=== PATIENT | male | born 1935 | race Caucasian/White ===

== ENCOUNTER → 2016-10-29 | Outpatient (CLI) | payer OTHER ==
[~2016-10-29] MED LIST: ASPI325T39 PO; ATEN-175 PO; CIPR-255 PO; FLUO20CA35 PO; HYDR-4715 PO; HYDR25TA4 PO; METR500T PO; MULT-506 PO; MULTCAP36 PO; OMEG10007 PO; SIMV20TA2 PO
[2016-10-29 12:26] LABS: MEAN CELL VOLUME 90.9 fL (80-100); MEAN CORPUSCULAR HEMOGLOBIN 31.8 pg (25-34); MEAN PLATELET VOLUME 12.4 fL (7.4-10.4); PLATELET COUNT 158 K/uL (130-400); RED BLOOD COUNT 5.28 M/uL (4.7-6.1)
[2016-10-29 12:31] LABS: URINE APPEARANCE CLEAR (CLEAR); URINE BILIRUBIN NEG (NEG); URINE COLOR YELLOW; URINE EPITHELIAL CELL AUTO 0-5 /lpf (0-5); URINE NITRITE NEG (NEG); URINE SPECIFIC GRAVITY 1.012 (1.000-1.030); UROBILINOGEN NEG (NEG)
[2016-10-29 12:34] LABS: BLOOD UREA NITROGEN 16 mg/dl (7-18); BUN/CREATININE RATIO 11.7 (10-20); CALCIUM 8.9 mg/dl (8.5-10.1); CARBON DIOXIDE 29 mmol/L (21-32); CHLORIDE 104 mmol/L (98-107); GLUCOSE 116 mg/dl (70-99); PHOSPHORUS 2.1 mg/dl (2.5-4.9); POTASSIUM 3.8 mmol/L (3.5-5.1); SODIUM 142 mmol/L (136-145)
[2016-10-29 12:46] LABS: MANUAL MICROSCOPIC REQUIRED? NO; REVIEW REQ? NO
[2016-10-29 12:54] LABS: URINE PROTIEN/CREAT RATIO 0.1 (0-0.2); URINE TOTAL PROTEIN 12.2 mg/dl (0-11.9)
== END | disposition home or self-care (01) ==
LOC: C.LABPVFM 10:49
PROVIDERS: ATTEND Internal Medicine Nephrology
DX: I10 Essential (primary) hypertension (principal); N25.81 Secondary hyperparathyroidism of renal origin; N18.3 Chronic kidney disease, stage 3 (moderate); E55.9 Vitamin D deficiency, unspecified

== ENCOUNTER → 2017-02-10 | Outpatient (CLI) | payer OTHER ==
--- NOTE | 2017-02-10 13:55 | DIAGNOSTIC IMAGING REPORT ---
CT OF THE CHEST WITHOUT IV CONTRAST CLINICAL HISTORY: Multiple pulmonary nodules. COMPARISON STUDY: Chest CT December 08, [address] of the abdomen and pelvis February 09, 2014. CT DOSE: 462.47 mGy.cm TECHNIQUE: Axial images of the chest were obtained without IV contrast. Images were reviewed in the axial, sagittal, and coronal planes. IV contrast was not administered for this examination. FINDINGS: No enlarged axillary, mediastinal or hilar lymph nodes are present. The heart is mildly enlarged. There is no pericardial effusion. Central airways are patent. Scattered pulmonary nodules are unchanged and CT of December 08, [address] of December 12, 2015 and include a 5 mm right lower lobe nodule shown image 48 of 62 and a 5 mm left lower lobe nodule shown image 44. There are no new nodules. The nodules are benign given stability. Central airways are patent. Bony thorax is unremarkable. There is fatty infiltration of the liver. IMPRESSION: No significant change in several pulmonary nodules since CT of December 12, 2013. Stability over this time period is consistent with a benign etiology. Electronically signed by: Darrell Lucas M.D. 02/10/2017 1:53 PM Dictated Date/Time: 02/10/2017 1:43 PM
== END | disposition home or self-care (01) ==
LOC: C.CTS 12:56
PROVIDERS: ATTEND Family Medicine
DX: R91.8 Other nonspecific abnormal finding of lung field (principal)

== ENCOUNTER → 2017-05-05 | Outpatient (CLI) | payer OTHER ==
[2017-05-05 12:53] LABS: HEMATOCRIT 47.8 % (42-52); MEAN CELL VOLUME 91.7 fL (80-100); MEAN CORPUSCULAR HEMOGLOBIN 30.7 pg (25-34); MEAN CORPUSCULAR HGB CONC 33.5 g/dl (32-36); RED BLOOD COUNT 5.21 M/uL (4.7-6.1); WHITE BLOOD COUNT 4.76 K/uL (4.8-10.8)
[2017-05-05 12:56] LABS: URINE APPEARANCE CLEAR (CLEAR); URINE BILIRUBIN NEG (NEG); URINE COLOR YELLOW; URINE EPITHELIAL CELL AUTO 0-5 /lpf (0-5); URINE NITRITE NEG (NEG); URINE SPECIFIC GRAVITY 1.019 (1.000-1.030); UROBILINOGEN NEG (NEG)
[2017-05-05 12:57] LABS: MANUAL MICROSCOPIC REQUIRED? NO; REVIEW REQ? NO
[2017-05-05 13:10] LABS: BLOOD UREA NITROGEN 20 mg/dl (7-18); BUN/CREATININE RATIO 13.3 (10-20); CALCIUM 8.7 mg/dl (8.5-10.1); CARBON DIOXIDE 29 mmol/L (21-32); CHLORIDE 108 mmol/L (98-107); GLUCOSE 118 mg/dl (70-99); POTASSIUM 3.8 mmol/L (3.5-5.1); SODIUM 141 mmol/L (136-145)
[2017-05-05 13:11] LABS: PHOSPHORUS 1.9 mg/dl (2.5-4.9)
[2017-05-05 13:13] LABS: URINE PROTIEN/CREAT RATIO 0.1 (0-0.2); URINE TOTAL PROTEIN 13.2 mg/dl (0-11.9)
[2017-05-05 13:36] LABS: MEAN PLATELET VOLUME 12.8 fL (7.4-10.4); PLATELET COUNT 128 K/uL (130-400)
== END | disposition home or self-care (01) ==
LOC: C.LABPVFM 07:58
PROVIDERS: ATTEND Internal Medicine Nephrology
DX: I10 Essential (primary) hypertension (principal); N25.81 Secondary hyperparathyroidism of renal origin; N18.3 Chronic kidney disease, stage 3 (moderate); E55.9 Vitamin D deficiency, unspecified

== ENCOUNTER → 2017-10-23 | Outpatient (CLI) | payer OTHER ==
[2017-10-23 12:53] LABS: HEMATOCRIT 50.1 % (42-52); HEMOGLOBIN 17.2 g/dL (14.0-18.0); MEAN CELL VOLUME 92.4 fL (80-100); MEAN CORPUSCULAR HEMOGLOBIN 31.7 pg (25-34); MEAN CORPUSCULAR HGB CONC 34.3 g/dl (32-36); MEAN PLATELET VOLUME 12.4 fL (7.4-10.4); PLATELET COUNT 158 K/uL (130-400); RED CELL DISTRIBUTION WIDTH SD 46.9 fL (36.4-46.3); WHITE BLOOD COUNT 7.22 K/uL (4.8-10.8)
[2017-10-23 13:37] LABS: ALBUMIN 3.5 gm/dl (3.4-5.0); BLOOD UREA NITROGEN 19 mg/dl (7-18); CALCIUM 8.6 mg/dl (8.5-10.1); CARBON DIOXIDE 28 mmol/L (21-32); CREATININE 1.49 mg/dl (0.60-1.40); GLUCOSE 100 mg/dl (70-99); PHOSPHORUS 2.7 mg/dl (2.5-4.9); POTASSIUM 3.6 mmol/L (3.5-5.1); SODIUM 138 mmol/L (136-145)
== END | disposition home or self-care (01) ==
LOC: C.LABPVFM 07:42
PROVIDERS: ATTEND Family Medicine
DX: E78.5 Hyperlipidemia, unspecified (principal); I12.9 Hypertensive chronic kidney disease with stage 1 through stage 4 chronic kidney disease, or unspecified chronic kidney disease; N18.3 Chronic kidney disease, stage 3 (moderate); N25.81 Secondary hyperparathyroidism of renal origin; E55.9 Vitamin D deficiency, unspecified

== ENCOUNTER → 2018-03-04 | Outpatient (CLI) | payer OTHER ==
[2018-03-04 13:06] LABS: HEMATOCRIT 47.4 % (42-52); HEMOGLOBIN 16.5 g/dL (14.0-18.0); MEAN CELL VOLUME 91.3 fL (80-100); MEAN CORPUSCULAR HEMOGLOBIN 31.8 pg (25-34); MEAN CORPUSCULAR HGB CONC 34.8 g/dl (32-36); MEAN PLATELET VOLUME 12.6 fL (7.4-10.4); PLATELET COUNT 147 K/uL (130-400); RED CELL DISTRIBUTION WIDTH CV 14.4 % (11.5-14.5); RED CELL DISTRIBUTION WIDTH SD 48.6 fL (36.4-46.3); WHITE BLOOD COUNT 5.22 K/uL (4.8-10.8)
[2018-03-04 13:19] LABS: ALBUMIN 3.4 gm/dl (3.4-5.0); ALT/SGPT 27 U/L (12-78); AST/SGOT 25 U/L (15-37); BLOOD UREA NITROGEN 17 mg/dl (7-18); CALCIUM 8.9 mg/dl (8.5-10.1); CARBON DIOXIDE 26 mmol/L (21-32); CREATININE 1.33 mg/dl (0.60-1.40); GLUCOSE 103 mg/dl (70-99); POTASSIUM 3.9 mmol/L (3.5-5.1); SODIUM 139 mmol/L (136-145)
[2018-03-04 13:21] LABS: ALKALINE PHOSPHATASE 86 U/L (45-117); TOTAL PROTEIN 6.8 gm/dl (6.4-8.2)
== END | disposition home or self-care (01) ==
LOC: C.LABPVFM 08:21
PROVIDERS: ATTEND Family Medicine
DX: E55.9 Vitamin D deficiency, unspecified (principal)

== ENCOUNTER 2019-12-31 08:37 | Inpatient (IN) ==
--- NOTE | 2019-12-31 09:07 | Emergency Department Note ---
ED Provider Note NAME: PHILLIP CROOK AGE: 84 SEX: M ARRIVES VIA: Ambulance INFORMANT: Patient, ED PROVIDER(S): Ryley Valerio DO CHIEF COMPLAINT: Left shoulder pain and generalized weakness IMPRESSION: Cellulitis of the left wrist and bilateral great toe areas PLAN: Disposition: Observation Condition: fair Outpatient prescription management: Referral: PCP MEDICAL DECISION MAKING: This is a 84-year-old male who presents to the ED with a chief complaint of left shoulder pain that is worse with movement. The patient states that he was seen here last Friday for the same. He also saw his PCP. They felt that it was musculoskeletal. The patient was given Toradol 15 mg IM by EMS in route. The patient, according to the , has had decreased p.o. intake over the last day or 2. The patient on my exam has some erythema to the left wrist on the palmar side. There is also some erythema to the bilateral toes. The states that this just started a couple of days ago. The patient has no vomiting. Denies any chest pains or shortness of breath or abdominal pains. No headaches. No recent trauma. The patient's blood test revealed a leukocytosis. His kidney function is abnormal. His kidney function suggest dehydration. He was treated with a liter of normal saline IV and a gram of Rocephin. His chest x-ray did suggest some mild fluid overload but clinically he is not in pulmonary edema. He will be seen for observation by Herlinda Alexandre hospitalist. Triage Nursing notes reviewed and agree them. [Additional history obtained from [Prior medical records reviewed] [] Vital Signs: reviewed and remarkable for [no significant abnormalities] Differential diagnosis: Infection, dehydration, metabolic abnormality, hypo/hyperglycemia, electrolyte disturbance, anemia, hypoxia, cardiac sources, intracerebral event, toxicologic, neurologic, as well as other pathologies. ER treatment provided: Rocephin 1 g IV, normal saline 1 L Diagnostics interpreted by me: ECG: Per my interpretation there is a normal sinus rhythm at a rate of 60 with out acute injury. No ST elevations. No PVCs. Normal QTC. Cardiac Monitoring: Reveals a normal sinus rhythm at a rate of 60. Laboratory studies: [See below] [] Imaging studies: [See below] [] Consultation(s): I spoke with the hospitalist, who will see the patient for admission/observation and further evaluation and consultation. HPI: This is a 84-year-old male who presents to the ED with a chief complaint of left shoulder pain that is worse with movement. The patient states that he was seen here last Friday for the same. He also saw his PCP. They felt that it was musculoskeletal. The patient was given Toradol 15 mg IM by EMS in route. The patient, according to the , has had decreased p.o. intake over the last day or 2. The states that this just started a couple of days ago. The patient has no vomiting. Denies any chest pains or shortness of breath or abdominal pains. No headaches. No recent trauma. ROS: See above HPI for pertinent positives & negatives. A total of [10] systems reviewed and were otherwise negative. PAST MEDICAL HISTORY:[See Below] PAST SURGICAL HISTORY:[See Below] FAMILY HISTORY:[See Below] SOCIAL HISTORY:[See Below] HOME MEDICATIONS:[See Below] ALLERGIES:[See Below] VITALS:[See Below] PHYSICAL EXAMINATION: CONSTITUTIONAL/VITAL SIGNS: Reviewed / noted above. GENERAL: Non-toxic in appearance. INTEGUMENTARY: Warm, dry, and [place]. The patient does have some erythema to the left wrist area on the palmar side. There is also some erythema on the bilateral great toes. HEAD: Normocephalic. EYES: without scleral icterus or trauma. ENT/OROPHARYNX: clear and moist. LYMPHADENOPATHY/NECK: Is supple without lymphadenopathy or meningismus. RESPIRATORY: Lungs clear and equal. CARDIOVASCULAR: Regular rate and rhythm. GI/ABDOMEN: Soft and nontender. No organomegaly or pulsatile mass. No rebound or guarding. Normal bowel sounds. EXTREMITIES: Warm and well perfused. Patient has some mild discomfort with movement of the left shoulder as well as palpation of the left shoulder. BACK: No CVA tenderness. NEUROLOGICAL: Intact without focal deficits. PSYCHIATRIC: normal affect. MUSCULOSKELETAL: Normally developed with good muscle tone. TRIAGE NURSING DOCUMENTATION REVIEWED. ED COURSE: The patient was treated with IV Rocephin. He was told the results of the test. He will be seen by the hospitalist for further evaluation and care. Procedures: [none] Impression & Plan Cellulitis, Acute kidney injury, Acute dehydration, Weakness Past Med/Surg History Medical History Chronic kidney disease, stage III (moderate) (Acute) Depression (Chronic) HTN (hypertension), benign (Chronic) Hyperlipidemia (Chronic) Vitamin D deficiency Surgical History No history of previous surgery Family History Denies family history of Ovarian cancer Prostate cancer Myocardial infarction Breast cancer Colorectal cancer Social History Preferred Language: Nepali Visual Impairment: No Limitations Hearing Ability: Normal marital status: Current Living Situation: Spouse current occupational status: retired Feels Safe at Home: Yes Smoking Status: Never smoker Second Hand Exposure: No ; Hx Alcohol Use: No Hx Substance Use: No caffeine: Yes Dental Care, Regularly: No Physical Activity Frequency: Does not Exercise Seatbelt Use: always Sunscreen Use: No Results & Data Vital Signs Vital Signs - 24 hr 12/31/19 08:44 12/31/19 09:29 12/31/19 10:35 Temperature 36.7 C Temperature Source Oral Pulse Rate 69 Pulse Rate [Finger] 64 Pulse Rhythm Regular Pulse Rhythm [Finger] Regular Pulse Strength Normal Pulse Strength [Finger] Normal Respiratory Rate 18 16 Respiratory Effort / Characteristics Non-Labored Spontaneous Non-Labored Spontaneous Respiratory Depth Normal Normal Respiratory Pattern Regular Regular Blood Pressure 150/79 H Blood Pressure [Right Arm] 134/73 Blood Pressure Mean 102 Blood Pressure Mean [Right Arm] 93 Blood Pressure Position Lying Blood Pressure Position [Right Arm] Lying Pulse Oximetry 95 95 98 Oxygen Delivery Method Room Air Room Air Room Air Sepsis Recent Fever Within 48 Hours No Sepsis New/Unexplained Change in Mental Status No Sepsis Action Taken by Nursing No Action Required Home Medications Current Medication List: was personally reviewed by me Laboratory Data Attestation: I reviewed the patient's lab results. Result diagrams: 12/31/19 09:27 12/31/19 09:27 Lab Results 12/31/19 12/31/19 Range/Units 09:27 09:27 WBC 23.28 H (4.8-10.8) K/uL RBC 4.63 L (4.7-6.1) M/uL Hgb 14.5 (14.0-18.0) g/dL Hct 42.3 (42-52) % MCV 91.4 (80-100) fL MCH 31.3 (25-34) pg MCHC 34.3 (32-36) g/dL RDW Std Deviation 52.5 H (36.4-46.3) fL RDW Coeff of Alize 15.6 H (11.5-14.5) % Plt Count 124 L (130-400) K/uL MPV 12.0 H (7.4-10.4) fL Immature Gran % (Auto) 3.9 % Neut % (Auto) 82.0 % Lymph % (Auto) 6.4 % [place] % (Auto) 7.6 % Eos % (Auto) 0.0 % Baso % (Auto) 0.1 % Immature Gran # (Auto) 0.91 H (0.00-0.02) K/uL Neut # (Auto) 19.10 H (1.4-6.5) K/uL Lymph # (Auto) 1.49 (1.2-3.4) K/uL [place] # (Auto) 1.76 H (0.11-0.59) K/uL Eos # (Auto) 0.00 (0-0.5) K/uL Baso # (Auto) 0.02 (0-0.2) K/uL Toxic Granulation 1+ Dohle Bodies 1+ Platelet Estimate Decreased L (Normal) Giant Platelets 1+ Echinocytes 1+ Sodium 138 (136-145) mmol/L Potassium 3.4 L (3.5-5.1) mmol/L Chloride 103 (98-107) mmol/L Carbon Dioxide 28 (21-32) mmol/L Anion Gap 7.0 (3-11) BUN 47 H (7-18) mg/dl Creatinine 1.61 H (0.6-1.4) mg/dl Est Cr Clr Drug Dosing 42.7 ml/min Est GFR ( Amer) 45.5 Est GFR (Non-Af Amer) 39.2 BUN/Creatinine Ratio 29.5 H (10-20) Glucose 123 H (70-99) mg/dl Calcium 8.2 L (8.5-10.1) mg/dl Total Creatine Kinase 65 (39-308) U/L Troponin I < 0.015 (0-0.045) ng/ml Administered Medications Discontinued Medications Sodium Chloride (Nss 1000ml) 1,000 mls @ 999 mls/hr IV .[id number] Stop: 12/31/19 10:15 Last Infusion: 12/31/19 10:29 Dose: 0 mls/hr Documented by: [id number] Admin: 12/31/19 09:28 Dose: 999 mls/hr Documented by: [id number] Ceftriaxone Sodium (Rocephin) 1,000 mg in 50 mls @ 100 mls/hr IV NOW STA Stop: 12/31/19 09:43 Last Infusion: 12/31/19 09:58 Dose: 0 mls/hr Documented by: [id number] Admin: 12/31/19 09:28 Dose: 100 mls/hr Documented by: [id number] Imaging Data Radiologist's Impression: SINGLE VIEW CHEST CLINICAL HISTORY: Generalized weakness. FINDINGS: An AP, portable, upright chest radiograph is correlated with chest CT dated 02/10/2017. The examination is degraded by portable technique and patient rotation. The heart is enlarged noting atherosclerotic calcification of the thoracic aorta. There is mild pulmonary vascular congestion. Atelectasis is noted at the lung bases. No airspace consolidation or large pleural effusion is identified. No pneumothorax is seen. The skeletal structures are osteopenic. There are healed left-sided rib fractures. IMPRESSION: Cardiomegaly with mild pulmonary vascular congestion. ECG Data Attestation: I personally reviewed and interpreted this ECG as follows: Indication: + chest pain Rate (beats per minute): 68 Rhythm: normal sinus ECG ST segments: + ST depression; no ST elevation ECG Findings: no PVCs Blood Pressure Blood Pressure Findings: Elevated blood pressure Blood Pressure Disposition: Referred to patients primary care provider Discharge Plan Visit Data Chief Complaint: Back Injury/Pain Stated Complaint: back pain ED Provider: Ryley Valeiro Discharge Problem: Cellulitis, Acute kidney injury, Acute dehydration, Weakness Patient Disposition: Being Evaluated by Hospitalist Condition: Fair Forms Stand Alone Forms: My [facility] [employer] Prescriptions Prescriptions: No Action hydrochlorothiazide 25 mg tablet 25 mg PO DAILY Qty: 90 RF: 3 omega-3 fatty acids [Fish Oil Concentrate] 1,000 mg capsule 1,000 mg PO BID Qty: 30 RF: 0 hydralazine 25 mg tablet 25 mg PO Q8H Qty: 90 RF: 2 multivitamin capsule 1 cap PO DAILY Qty: 30 RF: 0 PreserVision Lutein 226 mg-200 unit -5 mg-0.8 mg capsule 1 cap PO BID Qty: 30 RF: 0 cholecalciferol (vitamin D3) 1,000 unit capsule 1,000 units PO DAILY Qty: 30 RF: 0 atenolol 100 mg tablet 100 mg PO DAILY Qty: 30 RF: 2 prednisone 50 mg tablet 50 mg PO DAILY Qty: 5 RF: 0 cyclobenzaprine 10 mg tablet 10 mg PO TID PRN (Reason: muscle spasm) Qty: 14 RF: 0 tramadol 50 mg tablet See Rx Instructions PO Q6H PRN (Reason: pain) Qty: 16 RF: 0 escitalopram oxalate 10 mg tablet 10 mg PO DAILY Qty: 30 RF: 5 aspirin 81 mg tablet,delayed release (DR/EC) 81 mg PO HS RF: 0 simvastatin 20 mg tablet 20 mg PO HS RF: 0 Referrals Referrals: Kaitlin Rudd MD [Primary Care Provider] - Discharge Problem: Cellulitis Qualifiers: Site of cellulitis: extremity Site of cellulitis of extremity: upper extremity Laterality: left Qualified Code(s): L03.114 - Cellulitis of left upper limb
[2019-12-31] MEDS ORDERED: cefTRIAXone SODIUM 1,000 MG/50 ML BAG IV STA (09:14)
[2019-12-31] MEDS ORDERED: SODIUM CHLORIDE 0.9% 1000ML 1,000 ML IV SCH (09:15)
--- NOTE | 2019-12-31 09:40 | XRay Report ---
SINGLE VIEW CHEST CLINICAL HISTORY: Generalized weakness. FINDINGS: An AP, portable, upright chest radiograph is correlated with chest CT dated 02/10/2017. The examination is degraded by portable technique and patient rotation. The heart is enlarged noting athe rosclerotic calcification of the thoracic aorta. There is mild pulmonary vascular congestion. Atelect asis is noted at the lung bases. No airspace consolidation or large pleural effusion is identified. N o pneumothorax is seen. The skeletal structures are osteopenic. There are healed left-sided rib fract ures. IMPRESSION: Cardiomegaly with mild pulmonary vascular congestion. ACT 112: Negative or not required by law. Electronically signed by: Malcom Schaffer M.D. 12/31/2019 9:39 AM
[2019-12-31 09:56] LABS: BUN Creatinine Ratio 29.5 (10-20); Blood Urea Nitrogen 47 mg/dl (7-18); Calcium 8.2 mg/dl (8.5-10.1); Carbon Dioxide 28 mmol/L (21-32); Chloride 103 mmol/L (98-107); Creatinine Clr Calc Pharmacy 42.7 ml/min; Est GFR (African American) 45.5; Est GFR (Non-African American) 39.2; Glucose 123 mg/dl (70-99); Potassium 3.4 mmol/L (3.5-5.1); Sodium 138 mmol/L (136-145)
[2019-12-31 09:59] LABS: Creatine Kinase 65 U/L (39-308); Troponin I < 0.015 ng/ml (0-0.045)
[2019-12-31 10:15] LABS: Hematocrit (blood only) 42.3 % (42-52); Hemoglobin 14.5 g/dL (14.0-18.0); Mean Corpuscular Hemoglobin 31.3 pg (25-34); Mean Corpuscular Hgb Conc 34.3 g/dL (32-36); Mean Corpuscular Volume 91.4 fL (80-100); Platelet Count 124 K/uL (130-400); RDW Coefficient of Variation 15.6 % (11.5-14.5); RDW Standard Deviation 52.5 fL (36.4-46.3); Red Blood Count 4.63 M/uL (4.7-6.1); White Blood Count 23.28 K/uL (4.8-10.8)
[2019-12-31 10:16] LABS: Basophils # (auto) 0.02 K/uL (0-0.2); Basophils % (auto) 0.1 %; Dohle Bodies 1+; Echinocytes 1+; Giant Platelets 1+; Immature Granulocytes # (auto) 0.91 K/uL (0.00-0.02); Immature Granulocytes % (auto) 3.9 %; Lymphocytes # (auto) 1.49 K/uL (1.2-3.4); Lymphocytes % (auto) 6.4 %; Monocytes # (auto) 1.76 K/uL (0.11-0.59); Monocytes % (auto) 7.6 %; Platelet Estimate Decreased (Normal); Toxic Granulation 1+
--- NOTE | 2019-12-31 12:21 | History & Physical Report ---
Date of Service December 31, 2019 Assessment & Plan (1) Cellulitis: 84-year-old male was admitted on 31 December 2019 for multiple musculoskeletal symptoms along with cellulitis. Low back pain, left shoulder pain, left wrist cellulitis, bilateral toe erythema: Started with sharp low back pain, then limited left shoulder range of motion. Most recently difficulty moving bilateral legs and new areas of cellulitis on the left distal forearm as well as (emeka) both great toes. No known fevers or recent illness. No trauma, falls, saddle anesthesia, or other classic LBP red flags for an acute cord issue. Distally neurovascularly intact in all extremities. Current concern is for an infectious issue, perhaps tickborne vs viral vs bacterial source. Most worrisome would be a seeding bacteremia versus septic joint, though he never had a fever. Tachycardia would be limited by his atenolol. - Was seen in the ED on and by PCP on for initial symptoms. Has been on combination of prednisone 50 mg, cyclobenzaprine, and tramadol [id number]. - In the ED, afebrile, not tachycardic, mildly hypertensive, normal room SpO2. WBC 23. CK and troponin normal. EKG NSR 68. pCXR with mild pulmonary vascular congestion but no evidence of consolidation. - In the ED, treated with normal saline IVF and ceftriaxone 1 gm IV. - Will admit on vancomycin and ceftriaxone 2 grams IV q24h. Obtain x-rays of the left shoulder. Although already given antibiotics, will check blood and urine cultures. Check nasal MRSA. Also check for Lyme and a peripheral smear. On discussion with attending, will defer initial orthopedic evaluation until some of these tests are back. Continue with his outpatient prednisone 50 mg daily for now. Morphine IV prn for pain control. Thrombocytopenia: Admit platelet count 124. Baseline in mid 100s. No evidence of acute bleeding. Monitor for now. Acute on CKD stage III: Followed by Dr. Cruz of nephrology as outpatient. Baseline creatinine around 1.4. Admit creatinine 1.61. No reported dysuria, hematuria, urinary frequency or difficulty or incontinence. - At time of admit, UA is pending. Keep on some IVF and recheck BMP in AM. Hypokalemia: Admit potassium 3.4. Will replace and recheck in a.m. Ongoing medical issues: - HTN, HLD: Usually is on home aspirin, atenolol, hydralazine, hydrochlorothiazide, simvastatin. --- Hold his home hydralazine and HCTZ due to higher Cr. - Depression: Continue home escitalopram. - Vitamin D deficiency: Continue home vitamin D3. - Diverticulosis: Seen on recent CT a/p. - Hepatic steatosis: Seen on recent CT a/p. This admission, LFTs are normal. Code status: Full code. Diet: Heart healthy. DVT prophy: Lovenox. PT/OT: Deferred initially on admit, though likely will need before discharge. Disbo: Admit to [facility]. (2) Low back pain: (3) Left shoulder pain: (4) Thrombocytopenia: (5) Acute kidney injury: (6) Chronic kidney disease, stage III (moderate): (7) Hypokalemia: (8) HTN (hypertension), benign: (9) Hyperlipidemia: (10) Depression: (11) Vitamin D deficiency: History of Present Illness Primary Care Provider: Kaitlin Rudd MD 84-year-old male presents with his with concerns for ongoing low back pain, left shoulder pain, and more recently difficulty with ambulation as well as bilateral leg "weakness" and areas of skin redness. -The patient was initially seen back on December 24 in the ED complaining of severe right flank and back pain beginning the day prior. See related ED notes. Ultimate diagnosis was acute right flank pain without evidence of an acute abdominal infectious/surgical process. Thought to be musculoskeletal in origin. - Patient was seen by his primary care provider on December 27. See related note. Diagnosed with muscle strain, thought to be due to lifting a long ladder recently. Given IM Solu-Medrol and IM Toradol. Sent home on prednisone 50 mg daily as well as prn cyclobenzaprine and tramadol. - Since that time, patient and his say that his left shoulder and low back pain have only worsened. He also says it is hard for him to move both of his legs. He only got out of bed once yesterday to go to use the bathroom. He denies any changes in urinary habits to include any difficulty with urination or overflow incontinence. Says he had a normal bowel movement yesterday morning. Denies any numbness around his bottom. No known falls. He is also noticed an interval area of redness, warmth, and tenderness along his ventral distal left wrist as well as around his bilateral big toes. He says his toes "tingle" but are not painful both at baseline or with movement. Denies any problems with left wrist movement. His says that he was "more spacey yesterday" so she stopped giving him the cyclobenzaprine and tramadol mid afternoon. No known recent insect/tick bites. says they have not been traveling recently and have no known infectious exposures. - Past medical history includes hypertension, hyperlipidemia, depression, vitamin D deficiency, diverticulosis, hepatic steatosis, CKD stage III, osteopenia, left-sided rib fractures - Past surgical history (per patient) notes removal of a spine cyst over 15 years ago. - Social history includes no prior tobacco use. Denies alcohol use. Lives at home with . Allergies Allergy/AdvReac Type Severity Reaction Status Date / Time Sulfa (Sulfonamide Allergy Unknown Verified 12/31/19 09:36 Antibiotics) Penicillins Allergy Verified 12/31/19 09:36 Home Medications Home Medications Medication Instructions Recorded Confirmed Type hydrochlorothiazide 25 mg tablet 25 mg PO DAILY #90 tab 04/12/19 12/31/19 Rx cholecalciferol (vitamin D3) 25 1,000 units PO DAILY #30 cap 07/26/19 12/31/19 Rx mcg (1,000 unit) capsule hydralazine 25 mg tablet 25 mg PO Q8H #90 tab 07/26/19 12/31/19 Rx multivitamin 1 cap PO DAILY #30 cap 07/26/19 12/31/19 Rx omega-3 fatty acids 1,000 mg 1,000 mg PO BID #30 cap 07/26/19 12/31/19 Rx capsule vit C-vit [id number] ox-lutein 1 cap PO BID #30 cap 07/26/19 12/31/19 Rx 226 mg-200 unit-5 mg-0.8 mg capsule escitalopram oxalate 10 mg tablet 10 mg PO DAILY #30 tab 09/13/19 12/31/19 Rx atenolol 100 mg tablet 100 mg PO DAILY #30 tab 12/13/19 12/31/19 Rx cyclobenzaprine 10 mg tablet 10 mg PO TID PRN #14 tab 12/28/19 12/31/19 Rx prednisone 50 mg tablet 50 mg PO DAILY #5 tab 12/28/19 12/31/19 Rx tramadol 50 mg tablet See Rx Instructions PO Q6H PRN #16 12/28/19 12/31/19 Rx tab aspirin 81 mg PO HS 12/31/19 12/31/19 History simvastatin 20 mg PO HS 12/31/19 12/31/19 History Past Med/Surg History Medical History Chronic kidney disease, stage III (moderate) (Acute) Depression (Chronic) HTN (hypertension), benign (Chronic) Hyperlipidemia (Chronic) Vitamin D deficiency Surgical History No history of previous surgery Family History Denies family history of Ovarian cancer Prostate cancer Myocardial infarction Breast cancer Colorectal cancer Social History Preferred Language: [place] Communication Ability: Effective Visual Impairment: No Limitations Hearing Ability: Normal Electronic Publishing Specialist Required: No Beliefs That Will Affect Care: None marital status: Current Living Situation: Spouse current occupational status: retired Other Information That Helps Us Care for You: No Feels Safe at Home: Yes Safety Concerns: Feels Safe At This Time Smoking Status: Never smoker Do You Dip or Chew Tobacco: No ; Second Hand Exposure: No ; Tobacco Cessation Education Requested by Patient: No Hx Alcohol Use: No Hx Substance Use: No caffeine: Yes Dental Care, Regularly: No Physical Activity Frequency: Does not Exercise Seatbelt Use: always Sunscreen Use: No Review of Systems Review of Systems: Constitutional: Denies fevers, chills. Positive feeling of generalized weakness. Eyes: Denies any visual loss or diplopia ENT: Denies any ear/nose/throat pain or difficulty speaking or swallowing Respiratory: Denies any dyspnea, cough, hemoptysis Cardiovascular: Denies any chest pain or feeling of edema Gastrointestinal: Denies any abdominal pain, nausea/vomiting/diarrhea Musculoskeletal: See HPI. Skin: See HPI. Neuro: Denies any headache, difficulties with speech or swallow. Physical Exam Physical Exam: GENERAL: Awake, alert, well-appearing. Appears uncomfortable particularly with any movement but does not appear in immediate distress. HENT: Normocephalic, atraumatic. Oropharynx unremarkable. EYES: Normal conjunctiva. Sclera non-icteric. NECK: Inspection normal. Supple and full ROM. No nuchal rigidity. CARDIAC: +S1S2 RRR, no murmurs. RESPIRATORY: Clear to auscultation. No wheezes or rales. Normal respiratory effort. GI: +BS, soft, non-distended. No tenderness to palpation. No rebound or guarding. MSK / EXTREMITIES / NEURO: No pedal edema or calf tenderness. -There is a warm, tender, erythematous rash over the left dorsal approx. one- third distal forearm. Left wrist range of motion is grossly intact without difficulty. -There is a warm, tender, erythematous rash over the entire dorsal left great toe. Toe range of motion is grossly intact without difficulty. - There is a warm, tender, erythematous rash approximately 3-4 centimeters in diameter over the dorsal right foot below the first MTP joint. Toe range of motion is grossly intact without difficulty. - All areas of erythema do not appear to have breaks in the skin. - Patient has immediate pain in any attempted AROM or PROM of the left shoulder past a couple of degrees. Is currently keeping it abducted against his side. Distal strength in the left upper extremity is 5/5 with sensation intact. - Grossly full range of motion of the right upper extremity. - Bilateral lower extremities have strength 5/5 on foot dorsi and plantar flexion. He can flex and extend slowly at his bilateral knees. He cannot lift either leg off of the bed and straight leg raise. Distal sensation in bilateral feet is equal and intact. - After rolling patient to his side, palpation of the midline cervical, thoracic, lumbar, and sacral spine is nontender. There are no reproducible areas of tenderness on palpation of the paraspinal musculature or bilateral buttocks. No noted saddle anesthesia. Constitutional: WD/WN, vitals as above Eyes: normal visual maynard by confrontation and + anicteric sclerae Neck: normal visual inspection and trachea midline Respiratory: normal respiratory effort, lungs clear to auscultation Cardiovascular: Rate/Rhythm: regular rate and regular rhythm Gastrointestinal (Abdomen): Inspection/Auscultation: abdomen not distended Percussion/Palpation: abdomen soft; abdomen nontender Musculoskeletal: Head/Neck/Chest: normocephalic and head atraumatic Neg for peripheral LE edema, + pedal pulses Skin: no rashes, warm and dry Agree with exam as noted above Neurologic: awake; not confused Speech / Cognition: normal speech Psychiatric: A+Ox3, euthymic affect Lymphatic: Exam as done by Herlinda Alexandre DO Results & Data Vital Signs (Past 12 Hours) Vital Signs Temp Pulse Pulse Resp BP BP Pulse Ox 12/31/19 10:35 64 16 134/73 98 12/31/19 09:29 95 12/31/19 08:44 36.7 C 69 18 150/79 H 95 Laboratory Results 12/31/19 12/31/19 Range/Units 09:27 09:27 WBC 23.28 H (4.8-10.8) K/uL RBC 4.63 L (4.7-6.1) M/uL Hgb 14.5 (14.0-18.0) g/dL Hct 42.3 (42-52) % MCV 91.4 (80-100) fL MCH 31.3 (25-34) pg MCHC 34.3 (32-36) g/dL RDW Std Deviation 52.5 H (36.4-46.3) fL RDW Coeff of Alize 15.6 H (11.5-14.5) % Plt Count 124 L (130-400) K/uL MPV 12.0 H (7.4-10.4) fL Immature Gran % (Auto) 3.9 % Neut % (Auto) 82.0 % Lymph % (Auto) 6.4 % [place] % (Auto) 7.6 % Eos % (Auto) 0.0 % Baso % (Auto) 0.1 % Immature Gran # (Auto) 0.91 H (0.00-0.02) K/uL Neut # (Auto) 19.10 H (1.4-6.5) K/uL Lymph # (Auto) 1.49 (1.2-3.4) K/uL [place] # (Auto) 1.76 H (0.11-0.59) K/uL Eos # (Auto) 0.00 (0-0.5) K/uL Baso # (Auto) 0.02 (0-0.2) K/uL Toxic Granulation 1+ Dohle Bodies 1+ Platelet Estimate Decreased L (Normal) Giant Platelets 1+ Echinocytes 1+ Sodium 138 (136-145) mmol/L Potassium 3.4 L (3.5-5.1) mmol/L Chloride 103 (98-107) mmol/L Carbon Dioxide 28 (21-32) mmol/L Anion Gap 7.0 (3-11) BUN 47 H (7-18) mg/dl Creatinine 1.61 H (0.6-1.4) mg/dl Est Cr Clr Drug Dosing 42.7 ml/min Est GFR ( Amer) 45.5 Est GFR (Non-Af Amer) 39.2 BUN/Creatinine Ratio 29.5 H (10-20) Glucose 123 H (70-99) mg/dl Calcium 8.2 L (8.5-10.1) mg/dl Total Creatine Kinase 65 (39-308) U/L Troponin I < 0.015 (0-0.045) ng/ml Medications Administered Discontinued Medications Sodium Chloride (Nss 1000ml) 1,000 mls @ 999 mls/hr IV .Q1H1M [id number] Stop: 12/31/19 10:15 Last Infusion: 12/31/19 10:29 Dose: 0 mls/hr Documented by: [id number] Admin: 12/31/19 09:28 Dose: 999 mls/hr Documented by: [id number] Ceftriaxone Sodium (Rocephin) 1,000 mg in 50 mls @ 100 mls/hr IV NOW STA Stop: 12/31/19 09:43 Last Infusion: 12/31/19 09:58 Dose: 0 mls/hr Documented by: [id number] Admin: 12/31/19 09:28 Dose: 100 mls/hr Documented by: [id number] Code Status & VTE Plan Code Status Full code VTE Prophylaxis Plan VTE Prophylaxis will be ordered: Yes Supervising Physician Co-Signing Physician Notes Pt seen and examined by me. Denies chest pain or SOB. Tolerating PO without issue, but has had no appetite the last few days. Seen in the ED on 12/24 and by PCP on 12/27 for ongoing pain issues. Thought to be MSK but interventions are not leading to improvement and joint pains are worsening with development of skin redness. Agree with HPI/ROS as noted by resident See above for my exam in PE section Agree with plan as outlined above Uncertain etiology WBC elevated today, possible cellulitis Lyme, rickettsial labs pending Vanco/rocephin for now Blood cx UA pending L shoulder XR pending If sx not improved with abx and lyme, etc is neg, t/o ortho c/s CINDY in the setting of decreased PO intake IVF in the ED, monitor for signs of fluid overload. CTAP in ED On 12/24 neg for renal stones, appendix, etc Resident Activity Tracking Resident Involvement: Resident Care Provided Care Provided: Adult [facility] Medicine (1) Cellulitis Laterality: left Site of cellulitis: extremity Site of cellulitis of extremity: upper extremity Qualified Code(s): L03.114 - Cellulitis of left upper limb
[2019-12-31 13:20] LABS: Appearance Urine Cloudy (Clear); Bacteria Urine Automated 2+ (Negative); Bilirubin Urine Negative (Negative); Blood Urine 1+ (Negative); Color Urine Dark Yellow; Epithelial Cell Urine Auto 0-5 /lpf (0-5); Glucose Urine UA Negative (Negative); Ketones Urine Negative (Negative); Leukocyte Esterase Urine 1+ (Negative); Nitrite Urine Positive (Negative); Protein Urine Trace (Negative); Specific Gravity Urine 1.021 (1.000-1.030); Urobilinogen Urine Negative (Negative)
[2019-12-31] MEDS ORDERED: VANCOMYCIN CONSULT ACTIVE PRN (14:03)
[2019-12-31] MEDS ORDERED: ONDANSETRON INJ 2 MG/ML 2 ML VIAL IV PRN (14:03)
[2019-12-31] MEDS ORDERED: POTASSIUM CHLORIDE 20 MEQ TABCR PO ONE (14:30)
[2019-12-31] MEDS ORDERED: VANCOMYCIN HCL 2,500 MG in SODIUM CHLORIDE 0.9% 500 ML IV ONE (15:00)
[2019-12-31 15:04] LABS: Lyme Ab IgG w/WB Rflx Negative (Negative)
[2019-12-31 15:05] LABS: Lyme Ab IgM w/WB Rflx Negative (Negative)
--- NOTE | 2019-12-31 15:05 | Billing Data ---
Date of Service December 31, 2019 Coding Level of Care Code 63782 Initial Inpt Care Lvl 3
--- NOTE | 2019-12-31 15:07 | XRay Report ---
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 No acute fracture, dislocation o r opaque foreign body. Cardiomegaly. Multiple healed remote left-sided rib fractures. Left carotid va scular calcifications are noted. Mild soft tissue prominence superior to the left shoulder. IMPRESSION: No acute fracture or dislocation. ACT 112: Negative or not required by law. The above report was generated using voice recognition software. It may contain grammatical, syntax o r spelling errors. Electronically signed by: Ulises Newton M.D. 12/31/2019 3:06 PM
[2019-12-31] MEDS: MoRPHine SULFATE 4 MG/ML 1 ML CARP\\VIAL IV PRN (15:10)
[2019-12-31] MEDS: ENOXAPARIN INJ 40 MG/0.4 ML SYR SQ SCH (15:23)
--- NOTE | 2019-12-31 15:45 | Pharmacy Report ---
Pharmacy Abx Initial Consult - Date of Service December 31, 2019 - Pharmacy Dosing Scope Date of Consult: 12/31/19 Consultation requested by: Dr. Canela Pharmacy is consulted to initiate vancomycin IV dosing therapy, order appropriate labs and adjust drug dose/frequency. - Subjective The patient is a 84 year old M admitted on 12/31/19 12:15. - Objective Height: 5 ft 10 in Weight: 103.7 kg Vital Signs (Past 12hrs): Vital Signs Temp Pulse Pulse Resp BP BP Pulse Ox 12/31/19 15:30 36.6 C 68 19 169/84 H 93 12/31/19 14:06 36.7 C 64 18 148/78 H 95 12/31/19 13:15 68 18 129/73 97 12/31/19 12:00 64 20 160/93 H 93 12/31/19 10:35 64 16 134/73 98 12/31/19 09:29 95 12/31/19 08:44 36.7 C 69 18 150/79 H 95 Lab Results (24hrs): Laboratory Tests (24 Hours) 12/31/19 12/31/19 09:27 09:27 WBC 23.28 H Neut # (Auto) 19.10 H Creatinine 1.61 H Est Cr Clr Drug Dosing 42.7 Total Creatine Kinase 65 Micro Results: 12/31/19 13:10 Urine Culture - Pending Urine,Clean Catch 12/31/19 12:23 Aerobic Blood Culture - Pending Blood Anaerobic Blood Culture - Pending 12/31/19 12:47 Aerobic Blood Culture - Pending Blood Anaerobic Blood Culture - Pending - Assessment & Plan Assessment 84 year old M admitted for concerns for ongoing low back pain, left shoulder pain, and more recently difficulty with ambulation as well as bilateral leg "weakness" and areas of skin redness. Vancomycin and Rocephin have been initiated for empiric (48 hour) treatment of cellulitis with bacteremia vs septic joint Patient has a history of CKD, baseline SCr 1.3 (currently 1.6) Plan Vancomycin IV * Estimated PK Parameters: Vd 0.61 L/kg, Willy 0.04 hr-1, t1/2 17 hr (using baseline SCr of 1.3) * Loading dose: 2500 mg (25 mg/kg) * Maintenance dose: 1500 mg IV (15 mg/kg) every 24 hours * NOTE: dose may need adjusted if SCr does not improve to baseline by tomorrow * Goal trough level : 15 to 20 mcg/mL * No trough level currently ordered since duration is 48 hours. Will need to obtain with 4th dose if vanc to be extended longer Rocephin * Not dosed per pharmacy but 2 gm IV daily is appropriate Pharmacy will continue to follow and will adjust dose/frequency as necessary. Thank you.
[2019-12-31] MEDS ORDERED: cefTRIAXone SODIUM 1,000 MG/50 ML BAG IV ONE (16:00)
--- NOTE | 2019-12-31 16:42 | Electrocardiogram Report ---
Test Reason : Blood Pressure : / mmHG Vent. Rate : 068 BPM Atrial Rate : 068 BPM P-R Int : 146 ms QRS Dur : 088 ms QT Int : 418 ms P-R-T Axes : 054 014 104 degrees QTc Int : 444 ms Normal sinus rhythm Possible Left atrial enlargement Nonspecific ST and T wave abnormality Abnormal ECG When compared with ECG of 14-NOV-2005 10:02, Non-specific change in ST segment in Lateral leads Nonspecific T wave abnormality, worse in Lateral leads Confirmed by Cody Savage ([id number]) on 12/31/2019 4:41:47 PM Referred By: REFERRED SELF Confirmed By:Cody Savage
[2019-12-31] MEDS: LACTATED RINGER'S 1,000 ML IV SCH (17:57)
[2019-12-31] MEDS: ASPIRIN 81 MG ECTAB PO SCH (20:18)
[2019-12-31] MEDS: SIMVASTATIN 20 MG TAB PO SCH (20:18)
[2019-12-31] MEDS: ACETAMINOPHEN 325 MG TAB PO PRN (20:20)
[2020-01-01] MEDS: LACTATED RINGER'S 1,000 ML IV SCH ×2 (06:12→18:07)
[2020-01-01 06:14] LABS: Hematocrit (blood only) 43.2 % (42-52); Hemoglobin 14.8 g/dL (14.0-18.0); Mean Corpuscular Hemoglobin 31.3 pg (25-34); Mean Corpuscular Hgb Conc 34.3 g/dL (32-36); Mean Corpuscular Volume 91.3 fL (80-100); Mean Platelet Volume 12.8 fL (7.4-10.4); Platelet Count 114 K/uL (130-400); RDW Coefficient of Variation 15.8 % (11.5-14.5); Red Blood Count 4.73 M/uL (4.7-6.1); White Blood Count 20.92 K/uL (4.8-10.8)
[2020-01-01 06:36] LABS: Basophils # (auto) 0.02 K/uL (0-0.2); Basophils % (auto) 0.1 %; Dohle Bodies 1+; Eosinophils # (auto) 0.01 K/uL (0-0.5); Immature Granulocytes # (auto) 0.29 K/uL (0.00-0.02); Immature Granulocytes % (auto) 1.4 %; Lymphocytes % (auto) 2.9 %; Monocytes # (auto) 1.28 K/uL (0.11-0.59); Monocytes % (auto) 6.1 %; Neutrophils # (auto) 18.72 K/uL (1.4-6.5); Neutrophils % (auto) 89.5 %; Toxic Granulation 2+; Toxic Vacuolation 1+
[2020-01-01 06:40] LABS: BUN Creatinine Ratio 34.5 (10-20); Creatinine Clr Calc Pharmacy 48.7 ml/min; Est GFR (African American) 53.4; Est GFR (Non-African American) 46.1; Potassium 3.7 mmol/L (3.5-5.1)
[2020-01-01] MEDS ORDERED: predniSONE 50 MG TAB PO SCH (09:00)
[2020-01-01] MEDS: ATENOLOL 50 MG TABLET PO SCH (09:14)
[2020-01-01] MEDS: MULTIVITAMIN TAB PO SCH (09:14)
[2020-01-01] MEDS: CHOLECALCIFEROL 1,000 UNITS 25 MCG TAB PO SCH (09:14)
[2020-01-01] MEDS: CEROVITE ADV FORMULA TAB PO SCH (09:14)
[2020-01-01] MEDS: ESCITALOPRAM OXALATE 10 MG TAB PO SCH (09:14)
[2020-01-01] MEDS: cefTRIAXone SODIUM 2,000 MG/70 ML BAG IV SCH (09:15)
[2020-01-01] MEDS: ACETAMINOPHEN 325 MG TAB PO PRN (10:32)
--- NOTE | 2020-01-01 13:09 | Hospitalist Progress Note ---
Date of Service January 01, 2020 Assessment & Plan (1) Bacteremia: * Previously in ED for complaints of severe back/flank pain on 12/24 and thought initially kidney stone. CT A/P without evidence for stone. Thought [facility] -- received injections 12/27 of toradol and decadron and sent with rx for predn isone 50 mg, cyclobenzaprine, and tramadol since that time. Since friday, continued decline and now max assist x3 and progressive weakness/myalgia/arthralgias * Lyme, flu negative. CXR with mild pulmonary vascular congestion. Patient continues to be afebrile despite findings as below. * Patient with staph aureus 1/2 blood cultures prelim, PCR negative for MRSA and positive for Staph aureus. ?Seeding bacteremia -- will discontinue Vancomycin and continue with Rocephin. Follow cultures * Urinary Source --> Urine culture with staph aureus -- follow final culture/sensitivities * UA with trace protein, 1+ blood, positive nitrite, 1+ leuk esterase, 10-30WBC, 5-10RBC, 2+ bacteria * WBC 23.2k on admission (had been on steroids since 12/27 although ? that high solely from steroids) -- repeat at 20.9k * Continue IVF * Repeat blood cultures obtained * Also with concerns for possible endocarditis --> ESR elevated at 55. Patient without artificial heart valves or prosthesis. Only prior surgery for cyst removal of spine * ECHO ordered urgent * Peripheral smear with 2+ Granulation, 1+ Vacuolation, 1+ Dohle * Discontinued prednisone * Continue to monitor daily labs (2) Bacteriuria: * See above (3) [id number] kidney injury: * Acute on Chronic CKD III -- follows with Dr. Cruz as outpatient. Baseline Cr ~1.4 * Cr 1.61 on admission --> improved to 1.41 with IVF * Continue to monitor and continue IV fluids (4) Back pain: * Possibly secondary to endocarditis * Consider imaging of the back (5) Weakness: * See #1 (6) Cellulitis: * Initially with concerns for cellulitis --> see #1 (7) Low back pain: * See above * Tylenol, morphine prn pain (8) Left shoulder pain: * Xray without acute fracture or dislocation (9) Thrombocytopenia: * Admit platelet count 124 --> declined to 114 * Monitor * May need to hold Lovenox if drops less than 50 (10) Acute kidney injury: * See above -- follows with Dr. Cruz (11) Chronic kidney disease, stage III (moderate): * See above (12) HTN (hypertension), benign: * Continue home atenolol 100mg daily * Hydralazine, HCTZ on hold secondary to dehydration/CINDY * BP stable at 136/76 * Continue to monitor (13) Hyperlipidemia: * Chronic. Stable * Continue home simvastatin (14) Depression: * Continue home escitalopram (15) Vitamin D deficiency: * Continue home vitamin D3 (16) Toe pain: * Concerns for gout in 1st MTP left foot versus seeding from bacteremia. Uric acid 6.8 * Xray of left foot given increased pain/swelling (17) Hypokalemia: * On admit- K 3.4 - replaced * Repeat wnl at 3.7 * Continue to monitor am labs (18) DVT prophylaxis: * Lovenox SQ Dispo: transferred to medical with telemetry, ECHO pending Admission and Anticipated Discharge Date Admission Date: December 31, 2019 Supervising Physician Co-Signing Physician Notes PA Supervision Note: I did not personally see or examine the patient today, but I verified all pollard points of RYAN Caldwell's assessment and plan with the following exceptions/additions: None Subjective Patient evaluated with at bedside. She states the redness to bilateral toes/feet seems improved since this morning but worse than in days previously. Patient prior to onset of symptoms, he had been able to ambulate without assistance or walker/cane. states that since Friday she has noticed a significant decline in his condition. Patient had severe episode of back/flank pain earlier this week which was thought to be a kidney stone. They said they were in the emergency room but did not find any stone and were sent to orthopedics who thought it was [facility] and received injections of toradol and steroids. states they sent him home with three medications which including steroids, muscle relaxant and pain medications which did not help with patients back and leg pain. He confirms generalized malaise, chills, weakness and severe joint pain in both of his knees as well as toes, primarily left great toe and second digit. Patient denies any urinary symptoms/dysuria or frequency but endorses his urine was slightly darker than normal. Patient frequently falling back asleep but easily arousable. Patient with significant weakness RUE and unable to lift when asked about bruising and edema mentioned by nursing to his left wrist /arm. Denies chest pain or shortness of breath, but confirms he has had an occasional non-productive cough. Associated back pain but unable to localize. Patient denies any bowel/bladder incontinence. Per nursing, patient has been a max assist x3. Review of Systems Review of Systems: All systems reviewed & are unremarkable except as noted in HPI & below Constitutional: + chills, + fatigue, + malaise and + weakness; no fever Eyes: no diplopia and no problem reported Ear, Nose, Mouth, Throat: no dental pain, no bleeding gums, no sore throat and no dysphagia Respiratory: + cough; no dyspnea, no hemoptysis and no pain on inspiration Cardiovascular: + edema (slightly more heavy today, per patient); no chest pain and no palpitations Gastrointestinal: no abdominal pain, no nausea, no vomiting, no constipation and no diarrhea/loose stools Genitourinary: no dysuria and no urinary frequency Musculoskeletal: + back pain, + myalgia, + muscle weakness and + body aches Integumentary: bilateral feet/toes as well as left wrist Neurologic: + generalized weakness; no headache(s) and no confusion Physical Exam Constitutional: WD/WN, vitals as above + ill appearing; no acute distress tired appearing Eyes: + anicteric sclerae and PERRL ENMT: dry mm without petechiae Neck: trachea midline, no thyromegaly Respiratory: normal respiratory effort; no respiratory distress, no labored breathing and does not use accessory muscles Auscultation: + diminished lung sounds Cardiovascular: Rate/Rhythm: regular rate and regular rhythm Heart Sounds: normal S1 and normal S2; no cardiac rub Extremities: + edema (trace edema b/l LE) Gastrointestinal (Abdomen): normal bowel sounds, soft, nontender, no hepatosplenomegaly Musculoskeletal: 5/5 strength with dorsiflexion and plantar flexion b/l LE Patient unable to raise left arm without assistance due to weakness. Left with full ROM Unable to raise legs Sensation intact Spine nontender to palpation Skin: left great toe exquisitely tender to palpation/movement. Erythema of right toes to medial foot/ankle. Erythema of left foot >R. trace edema b/l LE pulses 2+ dp/pt erythema with bruising left wrist No observed sanders spots or janeway lesions at this time no evidence of petechiae Neurologic: PERRL, EOMI, accommodation nl, no face palsy, no dysarthria Psychiatric: Orientation: alert and oriented x 3 Lymphatic: no cervical or axillary lymphadenopathy Results & Data ([facility]) Vital Signs (Past 12 Hours) Vital Signs Temp Pulse Resp BP Pulse Ox 01/01/20 07:15 36.9 C 73 18 136/76 91 Laboratory Results 01/01/20 01/01/20 01/01/20 Range/Units 13:05 05:41 05:41 WBC (4.8-10.8) K/uL RBC (4.7-6.1) M/uL Hgb (14.0-18.0) g/dL Hct (42-52) % MCV (80-100) fL MCH (25-34) pg MCHC (32-36) g/dL RDW Std Deviation (36.4-46.3) fL RDW Coeff of Alize (11.5-14.5) % Plt Count (130-400) K/uL MPV (7.4-10.4) fL Immature Gran % (Auto) % Neut % (Auto) % Lymph % (Auto) % [place] % (Auto) % Eos % (Auto) % Baso % (Auto) % Immature Gran # (Auto) (0.00-0.02) K/uL Neut # (Auto) (1.4-6.5) K/uL Lymph # (Auto) (1.2-3.4) K/uL Lasalle # (Auto) (0.11-0.59) K/uL Eos # (Auto) (0-0.5) K/uL Baso # (Auto) (0-0.2) K/uL Toxic Granulation Toxic Vacuolation Dohle Bodies ESR 55 H (0-14) mm/hr Sodium (136-145) mmol/L Potassium (3.5-5.1) mmol/L Chloride (98-107) mmol/L Carbon Dioxide (21-32) mmol/L Anion Gap (3-11) BUN (7-18) mg/dl Creatinine (0.6-1.4) mg/dl Est Cr Clr Drug Dosing ml/min Est GFR ( Amer) Est GFR (Non-Af Amer) BUN/Creatinine Ratio (10-20) Glucose (70-99) mg/dl Uric Acid 6.8 (2.6-7.2) mg/dl Calcium (8.5-10.1) mg/dl Magnesium (1.8-2.4) mg/dl Nasal Screen MRSA (PCR) (Negative) Influenza Type A (PCR) Neg for Influ A (Neg) Influenza Type B (PCR) Neg for Influ B (Neg) Bld Cult Staph aureus PCR (Negative) Blood Culture MRSA PCR (Negative) 01/01/20 01/01/20 01/01/20 Range/Units 05:41 05:41 05:41 WBC 20.92 H (4.8-10.8) K/uL RBC 4.73 (4.7-6.1) M/uL Hgb 14.8 (14.0-18.0) g/dL Hct 43.2 (42-52) % MCV 91.3 (80-100) fL MCH 31.3 (25-34) pg MCHC 34.3 (32-36) g/dL RDW Std Deviation 53.0 H (36.4-46.3) fL RDW Coeff of Alize 15.8 H (11.5-14.5) % Plt Count 114 L (130-400) K/uL MPV 12.8 H (7.4-10.4) fL Immature Gran % (Auto) 1.4 % Neut % (Auto) 89.5 % Lymph % (Auto) 2.9 % Lasalle % (Auto) 6.1 % Eos % (Auto) 0.0 % Baso % (Auto) 0.1 % Immature Gran # (Auto) 0.29 H (0.00-0.02) K/uL Neut # (Auto) 18.72 H (1.4-6.5) K/uL Lymph # (Auto) 0.60 L (1.2-3.4) K/uL Lasalle # (Auto) 1.28 H (0.11-0.59) K/uL Eos # (Auto) 0.01 (0-0.5) K/uL Baso # (Auto) 0.02 (0-0.2) K/uL Toxic Granulation 2+ Toxic Vacuolation 1+ Dohle Bodies 1+ ESR (0-14) mm/hr Sodium 140 (136-145) mmol/L Potassium 3.7 (3.5-5.1) mmol/L Chloride 106 (98-107) mmol/L Carbon Dioxide 27 (21-32) mmol/L Anion Gap 7.0 (3-11) BUN 49 H (7-18) mg/dl Creatinine 1.41 H (0.6-1.4) mg/dl Est Cr Clr Drug Dosing 48.7 ml/min Est GFR ( Amer) 53.4 Est GFR (Non-Af Amer) 46.1 BUN/Creatinine Ratio 34.5 H (10-20) Glucose 103 H (70-99) mg/dl Uric Acid (2.6-7.2) mg/dl Calcium 8.0 L (8.5-10.1) mg/dl Magnesium 2.9 H (1.8-2.4) mg/dl Nasal Screen MRSA (PCR) (Negative) Influenza Type A (PCR) (Neg) Influenza Type B (PCR) (Neg) Bld Cult Staph aureus PCR (Negative) Blood Culture MRSA PCR (Negative) 12/31/19 12/31/19 Range/Units 18:05 12:47 WBC (4.8-10.8) K/uL RBC (4.7-6.1) M/uL Hgb (14.0-18.0) g/dL Hct (42-52) % MCV (80-100) fL MCH (25-34) pg MCHC (32-36) g/dL RDW Std Deviation (36.4-46.3) fL RDW Coeff of Alize (11.5-14.5) % Plt Count (130-400) K/uL MPV (7.4-10.4) fL Immature Gran % (Auto) % Neut % (Auto) % Lymph % (Auto) % [place] % (Auto) % Eos % (Auto) % Baso % (Auto) % Immature Gran # (Auto) (0.00-0.02) K/uL Neut # (Auto) (1.4-6.5) K/uL Lymph # (Auto) (1.2-3.4) K/uL Lasalle # (Auto) (0.11-0.59) K/uL Eos # (Auto) (0-0.5) K/uL Baso # (Auto) (0-0.2) K/uL Toxic Granulation Toxic Vacuolation Dohle Bodies ESR (0-14) mm/hr Sodium (136-145) mmol/L Potassium (3.5-5.1) mmol/L Chloride (98-107) mmol/L Carbon Dioxide (21-32) mmol/L Anion Gap (3-11) BUN (7-18) mg/dl Creatinine (0.6-1.4) mg/dl Est Cr Clr Drug Dosing ml/min Est GFR ( Amer) Est GFR (Non-Af Amer) BUN/Creatinine Ratio (10-20) Glucose (70-99) mg/dl Uric Acid (2.6-7.2) mg/dl Calcium (8.5-10.1) mg/dl Magnesium (1.8-2.4) mg/dl Nasal Screen MRSA (PCR) Negative (Negative) Influenza Type A (PCR) (Neg) Influenza Type B (PCR) (Neg) Bld Cult Staph aureus PCR Positive A (Negative) Blood Culture MRSA PCR Negative (Negative) PG Care Time/CCT Total # of Minutes Spent Total Time Spent with Patient: Total time spent is greater than 50% in coordination of care (as documented) at patient's floor/unit and/or counseling patient: Coding Level of Care Code 12500 Subseq Hosp Care Lvl 3 Diagnoses Bacteremia R78.81 Bacteriuria R82.71 [id number] kidney injury N17.9; N18.9 Back pain M54.9 Weakness R53.1 Cellulitis L03.114 Laterality: left Site of cellulitis: extremity Site of cellulitis of extremity: upper extremity Low back pain M54.5 Left shoulder pain M25.512 Thrombocytopenia D69.6 Acute kidney injury N17.9 Chronic kidney disease, stage III (moderate) N18.3 HTN (hypertension), benign I10 Hyperlipidemia E78.5 Depression F32.9 Vitamin D deficiency E55.9 Toe pain M79.676 Hypokalemia E87.6 DVT prophylaxis Z29.9 (1) Cellulitis Laterality: left Site of cellulitis: extremity Site of cellulitis of extremity: upper extremity Qualified Code(s): L03.114 - Cellulitis of left upper limb
[2020-01-01 14:25] LABS: Influenza A virus by PCR Neg for Influ A (Neg); Influenza B virus by PCR Neg for Influ B (Neg)
[2020-01-01] MEDS ORDERED: VANCOMYCIN HCL 1,500 MG in SODIUM CHLORIDE 0.9% 500 ML IV SCH (16:00)
[2020-01-01] MEDS: ENOXAPARIN INJ 40 MG/0.4 ML SYR SQ SCH (16:37)
[2020-01-01] MEDS: ASPIRIN 81 MG ECTAB PO SCH (20:13)
[2020-01-01] MEDS: SIMVASTATIN 20 MG TAB PO SCH (20:13)
--- NOTE | 2020-01-01 21:36 | XRay Report ---
XR lumbar spine 2-3V CLINICAL HISTORY: b/l LE pain/joint pain/weakness pain COMPARISON STUDY: No previous studies for comparison. FINDINGS: Generalized degenerative change throughout the entire lumbar region. Sclerosis and reactive osteophytic change of the vertebral endplates. No evidence for compression deformity. No evidence fo r subluxation. No evidence for compression deformity. IMPRESSION: Generalized degenerative disc change as well as vertebral endplate changes throughout th e entire lumbar region. No acute abnormality. ACT 112: Negative or not required by law. The above report was generated using voice recognition software. It may contain grammatical, syntax or spelling errors. Electronically signed by: Khoi Davidson M.D. 01/01/2020 9:35 PM
--- NOTE | 2020-01-01 21:37 | XRay Report ---
XR foot LT 2V CLINICAL HISTORY: ?gout pain COMPARISON: None. DISCUSSION: Mild generalized degenerative change. Primarily involves interphalangeal joints as well a s the first metatarsophalangeal joint. There are no periarticular erosions nor is there evidence for subchondral cyst formation. There is a small heel spur. Mild generalized degenerative change. This appears to be primarily osteoa rthritic. Small heel spur. IMPRESSION: Negative study. ACT 112: Negative or not required by law. The above report was generated using voice recognition software. It may contain grammatical, syntax or spelling errors. Electronically signed by: Khoi Davidson M.D. 01/01/2020 9:36 PM
[2020-01-02 06:37] LABS: Hemoglobin 13.6 g/dL (14.0-18.0); Mean Corpuscular Hemoglobin 31.1 pg (25-34); Mean Corpuscular Volume 91.3 fL (80-100); RDW Coefficient of Variation 15.8 % (11.5-14.5); RDW Standard Deviation 52.7 fL (36.4-46.3); Red Blood Count 4.38 M/uL (4.7-6.1); White Blood Count 21.35 K/uL (4.8-10.8)
[2020-01-02 06:51] LABS: INR 1.3 (0.9-1.1); Prothrombin Time 13.1 Seconds (9.0-12.0)
[2020-01-02] MEDS: LACTATED RINGER'S 1,000 ML IV SCH (06:58)
[2020-01-02 06:59] LABS: Basophils # (auto) 0.03 K/uL (0-0.2); Basophils % (auto) 0.1 %; Dohle Bodies 1+; Echinocytes 1+; Eosinophils # (auto) 0.01 K/uL (0-0.5); Immature Granulocytes # (auto) 0.21 K/uL (0.00-0.02); Lymphocytes % (auto) 5.2 %; Mean Platelet Volume 13.1 fL (7.4-10.4); Monocytes # (auto) 1.66 K/uL (0.11-0.59); Monocytes % (auto) 7.8 %; Neutrophils # (auto) 18.34 K/uL (1.4-6.5); Neutrophils % (auto) 85.9 %; Platelet Count 138 K/uL (130-400); Platelet Estimate Decreased (Normal); Toxic Granulation 2+
[2020-01-02 07:03] LABS: Albumin Level 1.6 gm/dl (3.4-5.0); Calcium 7.9 mg/dl (8.5-10.1); Creatinine Clr Calc Pharmacy 54.5 ml/min; Est GFR (African American) 61.2; Est GFR (Non-African American) 52.8; Magnesium 2.7 mg/dl (1.8-2.4); Potassium 3.8 mmol/L (3.5-5.1)
[2020-01-02 07:06] LABS: Albumin Globulin Ratio 0.5 (0.9-2); Globulin 3.5 gm/dl (2.5-4.0); Total Protein 5.1 gm/dl (6.4-8.2)
[2020-01-02] MEDS: MULTIVITAMIN TAB PO SCH (08:14)
[2020-01-02] MEDS: ATENOLOL 50 MG TABLET PO SCH (08:14)
[2020-01-02] MEDS: CEROVITE ADV FORMULA TAB PO SCH (08:14)
[2020-01-02] MEDS: ESCITALOPRAM OXALATE 10 MG TAB PO SCH (08:14)
[2020-01-02] MEDS: CHOLECALCIFEROL 1,000 UNITS 25 MCG TAB PO SCH (08:14)
[2020-01-02] MEDS: cefTRIAXone SODIUM 2,000 MG/70 ML BAG IV SCH (09:48)
--- NOTE | 2020-01-02 11:47 | Hospitalist Progress Note ---
Date of Service January 02, 2020 Assessment & Plan (1) Bacteremia: * Previously in ED for complaints of severe back/flank pain on 12/24 and thought initially kidney stone. CT A/P without evidence for stone. Thought MSK -- received injections 12/27 of toradol and decadron and sent with rx for predn isone 50 mg, cyclobenzaprine, and tramadol since that time. Since friday, continued decline and now max assist x3 and progressive weakness/myalgia/arthralgias * Lyme, flu negative. CXR with mild pulmonary vascular congestion. Patient continues to be afebrile despite findings as below. * Presented with various areas of cellulitis on feet/ankles and wrist and severe fatigue and myalgias * Patient with 12/30 2/ blood cultures with MSSA, blood cultures 12/31 growing GPC in clusters 2 out of 2 --Vancomycin discontinued -- Continue with Rocephin IV. -- Follow repeat cultures drawn 01/01 * Urine culture with MSSA, however could have been seeded from the bacteremia * UA with trace protein, 1+ blood, positive nitrite, 1+ leuk esterase, 10-30WBC, 5-10RBC, 2+ bacteria * WBC 23.2k on admission (had been on steroids since 12/27 although ? that high solely from steroids) -- repeat back up to 21.35 (did get am steroids 12/31) * With concerns for possible endocarditis --> ESR elevated at 55. Patient without artificial heart valves or prosthesis. Only prior surgery for cyst removal of spine --> ECHO ordered and still pending-- spoke with [facility]-- they have been backed up but it will be completed today. Already on Rocephin IV as above --> If TTE negative for valvular vegetation, suggest BASIA to definitely rule out/in vegetation to determine if patient requiring 2 vs 6 weeks IV ABX --> Dr Johnson back on service tomorrow -- may want to consider ID consult to assist with abx management pending results * Peripheral smear with 2+ Granulation, 1+ Vacuolation, 1+ Dohle * Discontinued prednisone on 12/31 as patient had been on as outpatient for possible MSK pain * Continue to monitor daily labs, check ESR and CRP in the morning (2) Bacteriuria: * See above (3) Bsqzo-gu-tavzjaj kidney injury: * Acute on Chronic CKD III -- follows with Dr. Cruz as outpatient. Baseline Cr ~1.4 * Cr 1.61 on admission --> improved to 1.26 with IVF * Continue to monitor and can now discontinue IV fluids (4) Back pain: * Denies so much "back pain" but rather more generalized weakness/myalgia. Also with bilateral lower extremity weakness * Tylenol, morphine prn pain * Possibly secondary to generalized myalgias from bacteremia * Lumbar spine x-ray without acute process, underlying degenerative changes/endplate erosion * MRI ordered to rule out discitis/possible abscess-negative for this and only with moderate spinal stenosis at L3-4, no cord impingement or cauda equina (5) Weakness: * See #1, MRI lumbar spine without significant cause of weakness (6) Cellulitis: * Lower extremity and wrist erythema/cellulitis possibly secondary to seeding from endocarditis/bacteremia * Erythema/swelling to LE improved today with treatment with IV antibiotics (7) Left shoulder pain: * Xray without acute fracture or dislocation (8) Thrombocytopenia: * Admit platelet count 124, trended down to 114 but improved to 138 * Continue to monitor * May need to hold Lovenox if drops less than 50 (9) Acute kidney injury: * See above -- follows with Dr. Cruz (10) Chronic kidney disease, stage III (moderate): * See above (11) HTN (hypertension), benign: * Continue home atenolol 100mg daily * Hydralazine, HCTZ on hold secondary to dehydration/CINDY * BP 152/76 * Continue to monitor and restart hydralazine if blood pressure continues to be elevated (12) Hyperlipidemia: * Chronic. Stable * Continue home simvastatin (13) Depression: * Continue home escitalopram (14) Vitamin D deficiency: * Continue home vitamin D3 (15) Toe pain: * Concerns for gout in 1st MTP left foot versus seeding from bacteremia. Uric acid 6.8 * Xray of left foot given increased pain/swelling -- negative for acute process * Seems unlikely that he had gout as he was on high-dose steroids for many days prior to admission with no improvement * Now improved on IV antibiotics making infectious cause most likely (16) Hypokalemia: * On admit- K 3.4 - replaced * Repeat wnl at 3.8 * Continue to monitor am labs (17) DVT prophylaxis: * Lovenox SQ Dispo: likely to remain inpatient as 3rd set of blood cultures pending, ECHO pending. Possible ID consult Friday if endocarditis for half-way IV abx Admission and Anticipated Discharge Date Admission Date: December 31, 2019 Supervising Physician Co-Signing Physician Notes RYAN Supervision Note: I did not personally see or examine the patient today, but I verified all pollard points of RYAN Caldwell's assessment and plan with the following exceptions/additions: None Subjective Patient doing about the same as yesterday. Extremely fatigued and weak. Discussed findings of blood cultures and urine for bacteria and that we are waiting on an ECHO to r/o possible endocarditis. Patient likely to need intermediate accountant IV abx if endocarditis and was discussed with and . Erythema and swelling of lower extremities improved as well as decreased swelling of right hand/wrist. Denies fever, chills, shortness of breath, chest pain, abdominal pain, n/v/d at this time. Denies numbness/tingling or loss of bowel/bladder incontinence. Discussed negative imaging for lumbar spine outside of degenerative changes and no acute process for left foot. Discussed unlikely gout flair given uric acid level. All questions/concerns addressed. Review of Systems Review of Systems: All systems reviewed & are unremarkable except as noted in HPI & below Constitutional: + chills, + fatigue, + malaise and + weakness; no fever Respiratory: + cough; no dyspnea, no hemoptysis and no pain on inspiration Musculoskeletal: + back pain, + myalgia, + muscle weakness and + body aches Neurologic: + generalized weakness; no headache(s) and no confusion Physical Exam Constitutional: WD/WN, vitals as above + ill appearing; no acute distress Eyes: + anicteric sclerae and PERRL Neck: trachea midline, no thyromegaly Respiratory: normal respiratory effort; no respiratory distress, no labored breathing and does not use accessory muscles Auscultation: + diminished lung sounds Cardiovascular: Rate/Rhythm: regular rate and regular rhythm Heart Sounds: normal S1 and normal S2; no cardiac rub Vessels: no JVD Extremities: + edema (trace edema b/l LE, improved) Gastrointestinal (Abdomen): normal bowel sounds, soft, nontender, no hepatosplenomegaly Musculoskeletal: 5/5 strength with dorsiflexion and plantar flexion b/l LE Patient unable to raise left arm without assistance due to weakness. Left with full ROM Unable to raise legs against resistance. Minimal movement with pain/myalgias per Sensation intact Spine nontender to palpation Skin: decreased erythema/swelling b/l LE. regression within pen markings. Decreased tenderness Neurologic: PERRL, EOMI, accommodation nl, no face palsy, no dysarthria Psychiatric: Orientation: alert and oriented x 3 Lymphatic: no cervical or axillary lymphadenopathy Results & Data ([facility]) Vital Signs (Past 12 Hours) Vital Signs Temp Pulse Pulse Resp BP Pulse Ox 01/02/20 07:38 63 01/02/20 07:22 37.0 C 66 20 152/72 H 90 01/02/20 04:23 36.8 C 65 20 131/69 96 01/02/20 01:54 67 Laboratory Results 01/02/20 01/02/20 01/02/20 Range/Units 05:13 05:13 05:13 WBC 21.35 H (4.8-10.8) K/uL RBC 4.38 L (4.7-6.1) M/uL Hgb 13.6 L (14.0-18.0) g/dL Hct 40.0 L (42-52) % MCV 91.3 (80-100) fL MCH 31.1 (25-34) pg MCHC 34.0 (32-36) g/dL RDW Std Deviation 52.7 H (36.4-46.3) fL RDW Coeff of Alize 15.8 H (11.5-14.5) % Plt Count 138 (130-400) K/uL MPV 13.1 H (7.4-10.4) fL Immature Gran % (Auto) 1.0 % Neut % (Auto) 85.9 % Lymph % (Auto) 5.2 % [place] % (Auto) 7.8 % Eos % (Auto) 0.0 % Baso % (Auto) 0.1 % Immature Gran # (Auto) 0.21 H (0.00-0.02) K/uL Neut # (Auto) 18.34 H (1.4-6.5) K/uL Lymph # (Auto) 1.10 L (1.2-3.4) K/uL [place] # (Auto) 1.66 H (0.11-0.59) K/uL Eos # (Auto) 0.01 (0-0.5) K/uL Baso # (Auto) 0.03 (0-0.2) K/uL Toxic Granulation 2+ Dohle Bodies 1+ Platelet Estimate Decreased L (Normal) Echinocytes 1+ PT 13.1 H (9.0-12.0) Seconds INR 1.3 H (0.9-1.1) Sodium 141 (136-145) mmol/L Potassium 3.8 (3.5-5.1) mmol/L Chloride 108 H (98-107) mmol/L Carbon Dioxide 27 (21-32) mmol/L Anion Gap 6.0 (3-11) BUN 44 H (7-18) mg/dl Creatinine 1.26 (0.6-1.4) mg/dl Est Cr Clr Drug Dosing 54.5 ml/min Est GFR ( Amer) 61.2 Est GFR (Non-Af Amer) 52.8 BUN/Creatinine Ratio 35.0 H (10-20) Glucose 103 H (70-99) mg/dl Calcium 7.9 L (8.5-10.1) mg/dl Magnesium 2.7 H (1.8-2.4) mg/dl Total Bilirubin 1.0 (0.2-1) mg/dl AST 24 (15-37) U/L ALT 25 (12-78) U/L Alkaline Phosphatase 110 (45-117) U/L Total Protein 5.1 L (6.4-8.2) gm/dl Albumin 1.6 L (3.4-5.0) gm/dl Globulin 3.5 (2.5-4.0) gm/dl Albumin/Globulin Ratio 0.5 L (0.9-2) Influenza Type A (PCR) (Neg) Influenza Type B (PCR) (Neg) 01/01/20 Range/Units 13:05 WBC (4.8-10.8) K/uL RBC (4.7-6.1) M/uL Hgb (14.0-18.0) g/dL Hct (42-52) % MCV (80-100) fL MCH (25-34) pg MCHC (32-36) g/dL RDW Std Deviation (36.4-46.3) fL RDW Coeff of Alize (11.5-14.5) % Plt Count (130-400) K/uL MPV (7.4-10.4) fL Immature Gran % (Auto) % Neut % (Auto) % Lymph % (Auto) % [place] % (Auto) % Eos % (Auto) % Baso % (Auto) % Immature Gran # (Auto) (0.00-0.02) K/uL Neut # (Auto) (1.4-6.5) K/uL Lymph # (Auto) (1.2-3.4) K/uL [place] # (Auto) (0.11-0.59) K/uL Eos # (Auto) (0-0.5) K/uL Baso # (Auto) (0-0.2) K/uL Toxic Granulation Dohle Bodies Platelet Estimate (Normal) Echinocytes PT (9.0-12.0) Seconds INR (0.9-1.1) Sodium (136-145) mmol/L Potassium (3.5-5.1) mmol/L Chloride (98-107) mmol/L Carbon Dioxide (21-32) mmol/L Anion Gap (3-11) BUN (7-18) mg/dl Creatinine (0.6-1.4) mg/dl Est Cr Clr Drug Dosing ml/min Est GFR ( Amer) Est GFR (Non-Af Amer) BUN/Creatinine Ratio (10-20) Glucose (70-99) mg/dl Calcium (8.5-10.1) mg/dl Magnesium (1.8-2.4) mg/dl Total Bilirubin (0.2-1) mg/dl AST (15-37) U/L ALT (12-78) U/L Alkaline Phosphatase (45-117) U/L Total Protein (6.4-8.2) gm/dl Albumin (3.4-5.0) gm/dl Globulin (2.5-4.0) gm/dl Albumin/Globulin Ratio (0.9-2) Influenza Type A (PCR) Neg for Influ A (Neg) Influenza Type B (PCR) Neg for Influ B (Neg) Diagnostic Findings Xray Lumbar Spine IMPRESSION: Generalized degenerative disc change as well as vertebral endplate changes throughout the entire lumbar region. No acute abnormality. Xray Left Foot 2 view IMPRESSION: Negative study. PG Care Time/CCT Total # of Minutes Spent Total Time Spent with Patient: Total time spent is greater than 50% in coordination of care (as documented) at patient's floor/unit and/or counseling patient: Coding Level of Care Code 86756 Subseq Hosp Care Lvl 3 Diagnoses Bacteremia R78.81 Bacteriuria R82.71 Cldag-tq-qaklxhl kidney injury N17.9; N18.9 Back pain M54.9 Weakness R53.1 Cellulitis L03.114 Laterality: left Site of cellulitis: extremity Site of cellulitis of extremity: upper extremity Left shoulder pain M25.512 Thrombocytopenia D69.6 Acute kidney injury N17.9 Chronic kidney disease, stage III (moderate) N18.3 HTN (hypertension), benign I10 Hyperlipidemia E78.5 Depression F32.9 Vitamin D deficiency E55.9 Toe pain M79.676 Hypokalemia E87.6 DVT prophylaxis Z29.9 (1) Cellulitis Laterality: left Site of cellulitis: extremity Site of cellulitis of extremity: upper extremity Qualified Code(s): L03.114 - Cellulitis of left upper limb
[2020-01-02] MEDS: ENOXAPARIN INJ 40 MG/0.4 ML SYR SQ SCH (15:04)
[2020-01-02] MEDS ORDERED: GADOBUTROL 65ML VIAL IV PRN (16:07)
--- NOTE | 2020-01-02 16:22 | Magnetic Resonance Report ---
MR lumbar spine wo/w con CLINICAL HISTORY: Back pain, extreme weakness. Possible discitis/osteomyelitis. TECHNIQUE: Sagittal and axial T1, T2 and STIR images were obtained. Images were acquired before and a fter the demonstration of 10.5 cc of intravenous Gadavist COMPARISON STUDY: X-ray study dated 01/01/2020 OBSERVATIONS: The vertebral bodies and posterior elements appear intact. There is no abnormal bony signal present t o suggest a marrow replacement process. L1-2: There is a circumferential disc bulge with mild spinal canal narrowing. There is mild right-keena ed foraminal narrowing L2-3: There is a circumferential disc bulge with mild spinal stenosis. There is no significant forami nal stenosis. L3-4: There is a circumferential disc bulge. There is facet joint arthropathy. There is moderate spin al stenosis. There is mild right-sided foraminal narrowing L4-5: There is a moderate right paracentral disc extrusion with secondary deformity of the thecal sac . There is no significant foraminal stenosis. There is evidence for a prior posterior laminectomy. L5-S1: No disc protrusions or extrusions. No evidence of spinal canal or neural foraminal compromise. There is evidence for prior posterior laminectomy. There are no findings to indicate discitis/osteomyelitis. There are no pathologically enhancing masses. There are no findings to indicate a paraspinal abscess. The study is moderately degraded due to motion artifact. The conus medullaris and cauda equina appear normal. IMPRESSION: 1. Motion degraded study 2. No evidence of discitis or osteomyelitis 3. Multilevel spondylytic changes. 4. Multilevel spinal stenosis, most severe at the L3-4 level 5. Moderate right paracentral disc extrusion with secondary deformity of the thecal sac at the L4-5 l evel. ACT 112: Negative or not required by law. Electronically signed by: Rd Us M.D. 01/02/2020 4:21 PM
[2020-01-02] MEDS: ACETAMINOPHEN 325 MG TAB PO PRN (16:38)
--- NOTE | 2020-01-02 16:40 | XCELERA ---
[id number] \\[email or web address]\[id number]_[email or web address]\[id number]
[2020-01-02] MEDS: SIMVASTATIN 20 MG TAB PO SCH (20:29)
[2020-01-02] MEDS: ASPIRIN 81 MG ECTAB PO SCH (20:29)
[2020-01-03 06:17] LABS: Basophils # (auto) 0.02 K/uL (0-0.2); Basophils % (auto) 0.1 %; Eosinophils # (auto) 0.02 K/uL (0-0.5); Eosinophils % (auto) 0.1 %; Hematocrit (blood only) 41.6 % (42-52); Hemoglobin 14.1 g/dL (14.0-18.0); Immature Granulocytes # (auto) 0.15 K/uL (0.00-0.02); Immature Granulocytes % (auto) 1.1 %; Lymphocytes # (auto) 1.33 K/uL (1.2-3.4); Lymphocytes % (auto) 9.5 %; Mean Corpuscular Hemoglobin 31.1 pg (25-34); Mean Corpuscular Hgb Conc 33.9 g/dL (32-36); Mean Corpuscular Volume 91.6 fL (80-100); Mean Platelet Volume 12.6 fL (7.4-10.4); Monocytes # (auto) 1.25 K/uL (0.11-0.59); Monocytes % (auto) 8.9 %; Neutrophils # (auto) 11.21 K/uL (1.4-6.5); Neutrophils % (auto) 80.3 %; Platelet Count 142 K/uL (130-400); RDW Coefficient of Variation 15.8 % (11.5-14.5); RDW Standard Deviation 53.2 fL (36.4-46.3); Red Blood Count 4.54 M/uL (4.7-6.1); White Blood Count 13.98 K/uL (4.8-10.8)
[2020-01-03 06:32] LABS: INR 1.3 (0.9-1.1); Prothrombin Time 13.4 Seconds (9.0-12.0)
[2020-01-03 06:43] LABS: Dohle Bodies 1+; Echinocytes 1+; Toxic Granulation 2+; Toxic Vacuolation 2+
[2020-01-03 06:52] LABS: Albumin Level 1.6 gm/dl (3.4-5.0); BUN Creatinine Ratio 35.9 (10-20); Calcium 8.2 mg/dl (8.5-10.1); Creatinine Clr Calc Pharmacy 57.3 ml/min; Est GFR (African American) 64.2; Est GFR (Non-African American) 55.4
[2020-01-03 06:59] LABS: Albumin Globulin Ratio 0.4 (0.9-2); Bilirubin,Total 1.1 mg/dl (0.2-1); C Reactive Protein 23.3 mg/dl (0-0.29); Globulin 3.6 gm/dl (2.5-4.0); Total Protein 5.2 gm/dl (6.4-8.2)
[2020-01-03] MEDS: CEROVITE ADV FORMULA TAB PO SCH (07:41)
[2020-01-03] MEDS: ESCITALOPRAM OXALATE 10 MG TAB PO SCH (07:41)
[2020-01-03] MEDS: ATENOLOL 50 MG TABLET PO SCH (07:41)
[2020-01-03] MEDS: CHOLECALCIFEROL 1,000 UNITS 25 MCG TAB PO SCH (07:41)
[2020-01-03] MEDS: MULTIVITAMIN TAB PO SCH (07:41)
[2020-01-03] MEDS: cefTRIAXone SODIUM 2,000 MG/70 ML BAG IV SCH (07:47)
--- NOTE | 2020-01-03 09:50 | Infectious Disease Consult ---
Date of Consultation January 03, 2020 Assessment & Plan (1) Gram positive sepsis: continue rocephin, likely secondary to skin infection, echo negative, await repeat cultures, if negative will need 14-21 days IV rocephin from first negative culture. History of Present Illness Attending Physician: Radames Fong MD pt admitted with back pain, was seen in ER on 12/24 for same, d/c home, no cultures done at that time. saw pcp on 12/27 for same. no f/c. back pain continued, had leg weakness, came to ER on , afebrile. wbc elevated at 23, blood cultures done, grew MSSA. 12/31 cultures also +, 01/01 pending, echo negative. on rocephin, tolerating well. had cellulitis in ER. MRI spine negative, foot xray, shoulder x ray all negative. esr 70, wbc improved to 13. states he is tired, still with discomfort, ate breakfast, no n/v/d/abd pain, no cp, sob, cough. Allergies Allergy/AdvReac Type Severity Reaction Status Date / Time Sulfa (Sulfonamide Allergy Unknown Verified 12/31/19 09:36 Antibiotics) Penicillins Allergy Verified 12/31/19 09:36 Home Medications Home Medications Medication Instructions Recorded Confirmed Type hydrochlorothiazide 25 mg tablet 25 mg PO DAILY #90 tab 04/12/19 12/31/19 Rx cholecalciferol (vitamin D3) 25 1,000 units PO DAILY #30 cap 07/26/19 12/31/19 Rx mcg (1,000 unit) capsule hydralazine 25 mg tablet 25 mg PO Q8H #90 tab 07/26/19 12/31/19 Rx multivitamin 1 cap PO DAILY #30 cap 07/26/19 12/31/19 Rx omega-3 fatty acids 1,000 mg 1,000 mg PO BID #30 cap 07/26/19 12/31/19 Rx capsule vit C-vit D-phvyfx-deqe ox-lutein 1 cap PO BID #30 cap 07/26/19 12/31/19 Rx 226 mg-200 unit-5 mg-0.8 mg capsule escitalopram oxalate 10 mg tablet 10 mg PO DAILY #30 tab 09/13/19 12/31/19 Rx atenolol 100 mg tablet 100 mg PO DAILY #30 tab 12/13/19 12/31/19 Rx cyclobenzaprine 10 mg tablet 10 mg PO TID PRN #14 tab 12/28/19 12/31/19 Rx prednisone 50 mg tablet 50 mg PO DAILY #5 tab 12/28/19 12/31/19 Rx tramadol 50 mg tablet See Rx Instructions PO Q6H PRN #16 12/28/19 12/31/19 Rx tab aspirin 81 mg PO HS 12/31/19 12/31/19 History simvastatin 20 mg PO HS 12/31/19 12/31/19 History Patient History Medical History Chronic kidney disease, stage III (moderate) (Acute) Depression (Chronic) HTN (hypertension), benign (Chronic) Hyperlipidemia (Chronic) Vitamin D deficiency Surgical History No history of previous surgery Family History Denies family history of Ovarian cancer Prostate cancer Myocardial infarction Breast cancer Colorectal cancer Social History Preferred Language: Kazakh Communication Ability: Effective Visual Impairment: No Limitations Hearing Ability: Normal Wheel Installer Required: No Beliefs That Will Affect Care: None marital status: Current Living Situation: Spouse current occupational status: retired Other Information That Helps Us Care for You: No Feels Safe at Home: Yes Safety Concerns: Feels Safe At This Time Smoking Status: Never smoker Do You Dip or Chew Tobacco: No ; Second Hand Exposure: No ; Tobacco Cessation Education Requested by Patient: No Hx Alcohol Use: No Hx Substance Use: No caffeine: Yes Dental Care, Regularly: No Physical Activity Frequency: Does not Exercise Seatbelt Use: always Sunscreen Use: No Review of Systems Review of Systems: All systems reviewed & are unremarkable except as noted in HPI & below Physical Exam Constitutional: WD/WN, vitals as above Eyes: PERRL, conjunctivae normal, anicteric sclerae ENMT: external ear and nose normal, oropharynx normal Neck: normal visual inspection Respiratory: normal respiratory effort, lungs clear to auscultation Cardiovascular: RRR, no murmur, no edema Gastrointestinal (Abdomen): normal bowel sounds, soft, nontender, no hepatosplenomegaly Musculoskeletal: no cyanosis or clubbing, extremities motor strength 5/5 Skin: no rashes, warm and dry Psychiatric: A+Ox3, euthymic affect Results & Data ([facility]) Vital Signs (Past 12 Hours) Vital Signs Temp Pulse Pulse Resp BP Pulse Ox 01/03/20 06:52 36.4 C L 64 20 173/93 H 96 01/03/20 04:00 36.6 C 60 20 173/79 H 92 01/02/20 23:02 60 01/02/20 23:00 36.5 C 60 19 160/85 H 94 Laboratory Results Microbiology 01/01/20 11:50 Blood Aerobic Blood Culture - Preliminary Staphylococcus aureus 01/01/20 11:50 Blood Anaerobic Blood Culture - Preliminary No growth in Anaerobic bottle after 24 hours. 01/01/20 11:41 Blood Aerobic Blood Culture - Preliminary Staphylococcus aureus 01/01/20 11:41 Blood Anaerobic Blood Culture - Preliminary No growth in Anaerobic bottle after 24 hours. 12/31/19 12:23 Blood Aerobic Blood Culture - Preliminary Staphylococcus aureus 12/31/19 12:23 Blood Anaerobic Blood Culture - Preliminary No growth in Anaerobic bottle after 48 hours. 12/31/19 13:10 Urine,Clean Catch Urine Culture - Final Staphylococcus aureus 12/31/19 12:47 Blood Aerobic Blood Culture - Preliminary Staphylococcus aureus 12/31/19 12:47 Blood Anaerobic Blood Culture - Final PG Care Time/CCT Total # of Minutes Spent Total Time Spent with Patient: Total time spent is greater than 50% in coordination of care (as documented) at patient's floor/unit and/or counseling patient: Coding Level of Care Code 86710 Inpt Consult Level 4 Diagnoses Gram positive sepsis A41.89
[2020-01-03] MEDS ORDERED: DiphenhydrAMINE HCL 50 MG/ML VIAL IV PRN (12:21)
[2020-01-03] MEDS ORDERED: EPINEPHRINE ADULT AUTO-INJECT 0.3 MG SYR IM PRN (12:22)
--- NOTE | 2020-01-03 12:49 | Hospitalist Progress Note ---
Date of Service January 03, 2020 Assessment & Plan (1) Bacteremia due to methicillin susceptible Staphylococcus aureus (MSSA): Persistently positive blood cultures at this stage (possibly due to concurrent prednisone use causing immunosuppression). Will repeat with AM labs. Switch ceftriaxone to nafcillin given better outcomes with this, noted penicillin allergy and discussed with patient and his and unknown reaction to this. Also discussed with RN and diphenhydramine prescribed for mild allergic reaction and epinephrine IM prescribed for anaphylactic reaction. Initial complaint of back pain concerning for discitis however MRI lumbar spine w+w/o contrast negative for this. Will defer thoracic spine MRI since his initial complaint was his lower back and did not tolerate MRI well. Right knee pain - effusion present but no erythema or warmth to suggest septic but if persistently bacteremic this may need to be aspirated, not original complaint therefore less likely original source. Possible pyelonephritis with initial complaint of right flank pain and urine culture positive for MSSA. However UA clean on 12/24 (no urine culture performed at that time) and CT A/P without concerning findings. Currently now concerning findings for infective endocarditis with septic emboli. No prosthetic joints or grafts as per his . (2) Infective endocarditis: Possible as per modified Potter's criteria with 1 major and 1 minor (vascular, Janeway lesions / septic emboli) clinical criteria met. EKG no change today. TTE negative for vegetation. mitral valve normal in structure and function, significant mitral regurgitation is absent. Possible septic emboli to brain and would consider MRI brain at some stage to assess but unlikely to [employer] BASIA would be possibly confirmatory but discussed with his unlikely change in management unless considering open heart surgery if there is a perivalvular abscess. EKG/TTE would suggest against this and his would not be considering this anyway. I would suggest 6 weeks of antibiotics for this patient from negative BC regardless of BASIA results. Will consult cardiology to enable informed decision making regarding this. (3) Bacteriuria: MSSA as above - most likely not source given prior UA 12/24 normal. (4) Dphsd-jj-hbnlkqf kidney injury: Mild and now resolved to baseline with IV fluids (5) Back pain: MRI lumbar spine negative for discitis/osteomyelitis Suspected secondary to generalized myalgias from MSSA bacteremia Total CK on admission normal Moderate spinal stenosis at L3-4 unlikely contributory. Suspect a lot of his pain if generalized anasarca from hypoalbuminemia and recent steroid use. (6) Weakness: Given MRI lumbar spine negative for discitis patient ok to mobilize as able. Will consult PT/OT. If having significant pain in a certain joint will consult orthopedics for possible aspiration. (7) Cellulitis: Suspect lesions on feet and left wrist from septic emboli rather than source. Would be very unusual to have x3 cellulitis areas otherwise. (8) Left shoulder pain: Concerning for septic emboli. XR negative for # (9) Left upper extremity swelling: Suspect this was prior fluids given vs. immobility in setting of hypoalbuminemia US venous doppler negative for DVT Elevate as able to reduce swelling (10) Thrombocytopenia: Now resolved. Mildly decreased in setting of MSSA bacteremia not concerning. (11) HTN (hypertension), benign: Continue home atenolol 100mg daily Restarted hydralazine today but BP remained consistently elevated therefore will restart HCTZ tonight since CINDY now resolved. (12) Hyperlipidemia: Continue home simvastatin (13) Depression: Continue home escitalopram (14) Vitamin D deficiency: Continue home cholecalciferol 1000 units daily (15) DVT prophylaxis: Lovenox 40mg SQ daily Admission and Anticipated Discharge Date Admission Date: December 31, 2019 Subjective Patient lying in bed apparently in pain but not taking the morphine ordered. He reports pain in all his muscles and joints but has not been asking for pain relief. Most significant pain in his lower back and right knee. He denies any ongoing urinary symptoms. Unable to discuss events a week ago and his is overwhelmed by everything and mainly just wants me to look the previous notes rather than ask them questions but I confirm his only issue a week ago in the ER was the back pain without any radiation at that time and no concern for urinary symptoms at that time either. He never improved and just became generally weak in the coming days to the point of him coming back to hospital. His is by the bedside and distressed about not knowing what is going on. However on discussing his infection she appears well informed of everything we have done. I explained the seriousness of this infections and unfortunately he continues to have positive blood cultures which means he is not clearing the infection for some reason. Review of Systems Review of Systems: All systems reviewed & are unremarkable except as noted in HPI & below (limited due to patient lethargy/coorporation) Physical Exam Constitutional: + ill appearing and + frail appearing; + not well nourished and no acute distress Eyes: + anicteric sclerae; normal pupil size ENMT: external ear and nose normal, oropharynx normal Neck: trachea midline Respiratory: normal respiratory effort, lungs clear to auscultation Cardiovascular: Rate/Rhythm: regular rate and regular rhythm Heart Sounds: no murmur Vessels: no JVD Extremities: normal capillary refill, + pedal edema (1+ equal b/l up to thighs) and + edema (LUE > RUE); no calf tenderness Gastrointestinal (Abdomen): Inspection/Auscultation: abdomen normal to inspection and normal bowel sounds Percussion/Palpation: abdomen soft; abdomen nontender, no guarding and abdomen not rigid Musculoskeletal: right knee joint effusion without erythema or warmth but significant pain with palpation. Skin: Erythematous areas of 1st/2nd toes on left foot (improving from marked area drawn), erythema or first MTP right, left distal forearm 2cm area of radial palpation point. No midline tenderness over cervical/thoracic or lumbar spines. Neurologic: moves all extremities (very painful left shoulder movements in any direction), awake (but lethargic, only answers a few questions) and + confused Motor/Sensory: no tremor Psychiatric: Orientation: alert; + not oriented x 3 (does not answer my questions) Results & Data ([facility]) Vital Signs (Past 12 Hours) Vital Signs Temp Pulse Pulse Resp BP BP Pulse Ox 01/03/20 10:58 36.8 C 57 L 18 186/84 H 92 01/03/20 10:50 58 L 01/03/20 06:52 36.4 C L 64 20 173/93 H 96 01/03/20 04:00 36.6 C 60 20 173/79 H 92 PG Care Time/CCT Total # of Minutes Spent Total Time Spent with Patient: Total time spent is greater than 50% in coordination of care (as documented) at patient's floor/unit and/or counseling patient: Coding Level of Care Code 31863 Subseq Hosp Care Lvl 3 Diagnoses Bacteremia due to methicillin susceptible Staphylococcus aureus (MSSA) R78.81; B95.61 Infective endocarditis I33.0 Infective endocarditis organism: bacterial Chronicity: acute Bacteriuria R82.71 Xwapa-nb-sedetyt kidney injury N17.9; N18.3 Acute renal failure type: unspecified Chronic kidney disease stage: stage 3 (moderate) Back pain M54.5 Back pain location: low back pain Chronicity: acute Back pain laterality: right Sciatica presence: without sciatica Weakness R53.1 Cellulitis L03.114 Laterality: left Site of cellulitis: extremity Site of cellulitis of extremity: upper extremity Left shoulder pain M25.512 Chronicity: acute Left upper extremity swelling M79.89 Thrombocytopenia D69.6 HTN (hypertension), benign I10 Hyperlipidemia E78.2 Hyperlipidemia type: mixed hyperlipidemia Depression F32.9 Depression Type: unspecified Vitamin D deficiency E55.9 DVT prophylaxis Z29.9 (1) Grpcj-yl-fpivhpz kidney injury Acute renal failure type: unspecified Chronic kidney disease stage: stage 3 (moderate) Qualified Code(s): N17.9 - Acute kidney failure, unspecified; N18.3 - Chronic kidney disease, stage 3 (moderate) (2) Back pain Back pain location: low back pain Chronicity: acute Back pain laterality: right Sciatica presence: without sciatica Qualified Code(s): M54.5 - Low back pain (3) Cellulitis Laterality: left Site of cellulitis: extremity Site of cellulitis of extremity: upper extremity Qualified Code(s): L03.114 - Cellulitis of left upper limb (4) Left shoulder pain Chronicity: acute Qualified Code(s): M25.512 - Pain in left shoulder (5) Hyperlipidemia Hyperlipidemia type: mixed hyperlipidemia Qualified Code(s): E78.2 - Mixed hyperlipidemia (6) Depression Depression Type: unspecified Qualified Code(s): F32.9 - Major depressive disorder, single episode, unspecified (7) Infective endocarditis Infective endocarditis organism: bacterial Chronicity: acute Qualified Code(s): I33.0 - Acute and subacute infective endocarditis
--- NOTE | 2020-01-03 13:57 | Ultrasound Report ---
US venous doppler UE LT CLINICAL HISTORY: Left arm swelling. COMPARISON STUDY: No previous studies for comparison. FINDINGS: No intraluminal thrombus was visualized. The internal jugular, subclavian, axillary, cephal ic, brachial, basilic, radial, and ulnar veins were patent. There is left upper arm edema including s uspected intramuscular edema. IMPRESSION: No evidence of left upper extremity DVT. ACT 112: Negative or not required by law. Electronically signed by: Rd Us M.D. 01/03/2020 1:56 PM
[2020-01-03] MEDS: NAFCILLIN SODIUM 2,000 MG in DEXTROSE 5% 100 ML IV SCH ×3 (13:59→21:49)
[2020-01-03] MEDS: ENOXAPARIN INJ 40 MG/0.4 ML SYR SQ SCH (14:00)
[2020-01-03] MEDS ORDERED: EPINEPHrine INJ 1 MG/ML AMP SC PRN (14:01)
[2020-01-03] MEDS: ASPIRIN 81 MG ECTAB PO SCH (20:24)
[2020-01-03] MEDS: SIMVASTATIN 20 MG TAB PO SCH (20:24)
[2020-01-03] MEDS ORDERED: OXYCODONE HCL IR 5 MG TAB (IMMEDIATE RELEASE) PO PRN (20:50)
[2020-01-03] MEDS ORDERED: hydroCHLOROthiazide 25 MG TAB PO STA (21:11)
--- NOTE | 2020-01-03 21:14 | XRay Report ---
RIGHT KNEE 2 VIEWS CLINICAL HISTORY: Right knee pain. FINDINGS: AP and crosstable lateral views of the right knee are obtained. No prior studies are availa ble for comparison at the time of dictation. The skeletal structures are osteopenic. No fracture is s een. There is mild to moderate tricompartmental degenerative joint space narrowing. Small patellar en thesophytes are observed. A calcified fabella is incidentally noted. There is a joint effusion, as we ll as soft tissue edema present around the knee. IMPRESSION: Soft tissue edema and joint effusion with no acute bony abnormality identified. Electronically signed by: Malcom Schaffer M.D. 01/03/2020 9:13 PM
[2020-01-04] MEDS: NAFCILLIN SODIUM 2,000 MG in DEXTROSE 5% 100 ML IV SCH ×4 (02:02→16:16)
--- NOTE | 2020-01-04 06:09 | Electrocardiogram Report ---
Test Reason : Blood Pressure : / mmHG Vent. Rate : 059 BPM Atrial Rate : 059 BPM P-R Int : 144 ms QRS Dur : 088 ms QT Int : 448 ms P-R-T Axes : 059 024 066 degrees QTc Int : 443 ms Sinus bradycardia Nonspecific ST and T wave abnormality Abnormal ECG When compared with ECG of 31-DEC-2019 09:20, No significant change was found Confirmed by Lance Islas ([id number]) on 01/04/2020 6:09:04 AM Referred By: REFERRED SELF Confirmed By:Lance Islas
[2020-01-04 08:07] LABS: Hematocrit (blood only) 41.6 % (42-52); Mean Corpuscular Hgb Conc 33.7 g/dL (32-36); Mean Platelet Volume 12.8 fL (7.4-10.4); Platelet Count 159 K/uL (130-400); RDW Coefficient of Variation 15.8 % (11.5-14.5); RDW Standard Deviation 53.5 fL (36.4-46.3); Red Blood Count 4.52 M/uL (4.7-6.1); White Blood Count 13.76 K/uL (4.8-10.8)
[2020-01-04 08:15] LABS: INR 1.3 (0.9-1.1); Prothrombin Time 13.7 Seconds (9.0-12.0)
--- NOTE | 2020-01-04 08:22 | Consultation Report ---
DATE OF CONSULTATION: 01/04/2020 NOTICE TO RECEIVING REPUBLICAN/AGENCY This information is strictly Confidential and protected under [place] law. [place] law prohibits you from making any further disclosure of this information unless further disclosure is expressly permitted by the written consent of the person to whom it pertains or is authorized by law. A general authorization for the release of medical or other information is not sufficient for this purpose. Hospital accepts no responsibility if the information is made available to any other person, INCLUDING THE PATIENT. CHIEF COMPLAINT: Low back and right knee pain. HISTORY OF PRESENT ILLNESS: Mr. Basurto is an 84-year-old gentleman admitted to the hospital 4 days ago with a diagnosis of bacteremia. He initially presented to the Emergency Room on 12/25/2019 for low back pain. He was discharged home. He saw his primary care physician 3 days later on 12/28/2019. Continued to have back pain. He returned to the Emergency Room on 12/31/2019 at which time blood cultures were done, which grew MSSA. He was admitted. He complained of shoulder pain at that time in addition to his back pain. He had x-rays done of his left shoulder which were negative for any acute process. They were noted to have some incidentally noted AC joint osteoarthritis. He then underwent an MRI of his lumbar spine on 01/02/2020. This showed spinal stenosis, but no evidence of infection. He has had a urine culture done that also showed MSSA. He has been complaining of right knee pain. Orthopedics was consulted to evaluate for the possibility of a septic arthritis of his right knee. PAST MEDICAL HISTORY, PAST SURGICAL HISTORY, FAMILY HISTORY, SOCIAL HISTORY, MEDICATIONS, ALLERGIES AND 14-POINT REVIEW OF SYSTEMS: All reviewed in the chart. Pertinent positives include a medical history of stage III chronic kidney disease, depression, and vitamin D deficiency. PHYSICAL EXAMINATION: GENERAL: He is arousable, alert and oriented x3. He is in no apparent distress. He is frustrated being in the hospital for so many days. RIGHT KNEE: Right knee exam reveals the patient to have minimal effusion. His active range of motion is from 0-130 degrees. He is able to do a straight leg raise. There is no erythema or warmth about the right knee. He denies any pain in the knee when he is in bed. It only bothers him while he is weightbearing. He tolerates gentle passive range of motion without any difficulty. No tenderness to palpation along the medial or lateral joint lines or along the patella today. RESULTS REVIEWED: X-rays that were done 2 views of the right knee on 01/03/2020 are reviewed. There is no evidence of fracture. He does have osteophytes noted off the patella, medial and lateral tibial spines and proximal medial tibial plateau as well as some mild joint space narrowing on these nonweightbearing films consistent with a moderate right knee osteoarthritis. IMPRESSION: Right knee pain secondary to arthritis. No indication for arthrocentesis due to extremely low suspicion for infection. PLAN: I discussed the impression with the patient. The right knee does not appear to be the source of his MSSA bacteremia. Will defer to his primary care team for ongoing management of his bacteremia. Any questions, feel free to contact orthopedics.
[2020-01-04 08:29] LABS: Basophils # (auto) 0.03 K/uL (0-0.2); Basophils % (auto) 0.2 %; Eosinophils # (auto) 0.04 K/uL (0-0.5); Eosinophils % (auto) 0.3 %; Immature Granulocytes # (auto) 0.21 K/uL (0.00-0.02); Immature Granulocytes % (auto) 1.5 %; Lymphocytes # (auto) 2.08 K/uL (1.2-3.4); Lymphocytes % (auto) 15.1 %; Monocytes # (auto) 0.68 K/uL (0.11-0.59); Monocytes % (auto) 4.9 %; Neutrophils # (auto) 10.72 K/uL (1.4-6.5)
[2020-01-04] MEDS: ESCITALOPRAM OXALATE 10 MG TAB PO SCH (08:36)
[2020-01-04] MEDS: CEROVITE ADV FORMULA TAB PO SCH (08:36)
[2020-01-04] MEDS: ATENOLOL 50 MG TABLET PO SCH (08:36)
[2020-01-04] MEDS: CHOLECALCIFEROL 1,000 UNITS 25 MCG TAB PO SCH (08:37)
[2020-01-04 08:44] LABS: Albumin Level 1.5 gm/dl (3.4-5.0); BUN Creatinine Ratio 33.4 (10-20); Calcium 7.9 mg/dl (8.5-10.1); Creatinine Clr Calc Pharmacy 52.5 ml/min; Est GFR (African American) 58.9; Est GFR (Non-African American) 50.8; Potassium 3.6 mmol/L (3.5-5.1)
[2020-01-04] MEDS: OXYCODONE HCL IR 5 MG TAB (IMMEDIATE RELEASE) PO PRN (08:46)
[2020-01-04 09:00] LABS: Albumin Globulin Ratio 0.4 (0.9-2); Bilirubin,Total 2.7 mg/dl (0.2-1); Phosphorus 4.3 mg/dl (2.5-4.9); Total Protein 5.5 gm/dl (6.4-8.2)
[2020-01-04] MEDS ORDERED: hydroCHLOROthiazide 25 MG TAB PO SCH (09:00)
--- NOTE | 2020-01-04 09:08 | Cardiology Consultation ---
Date of Consultation January 04, 2020 Assessment & Plan (1) Bacteremia due to methicillin susceptible Staphylococcus aureus (MSSA): Mr. Basurto is an 84 year old male with a history of Stage III CKD, Hypertension, Hyperlipidemia, Depression, and Thrombocytopenia who was admitted to [facility] on 12/31/2019 with Gram Positive Sepsis (MSSA on BCx x 1). Cardiology was consulted regarding the possibility of Infectious Endocarditis. Patient initially presented to the Emergency Room on 12/25/2019 with low back pain. He was discharged home. He saw his primary care physician 3 days later on 12/28/2019. Continued to have back pain. He returned to the Emergency Room on 12/31/2019 at which time blood cultures were done, which grew MSSA -- and subsequent urine culture grew out MSSA as well. He was then admitted and is currently receiving IV Nafcillin -- and the plan is to continue IV antibiotics x 6 weeks. Patient's Echocardiogram on 01/02/2020 showed No Evidence of valvular vegetations or any valvular abnormalities. (2) Gram positive sepsis: -- As outlined above, prolonged antibiotic course. (3) HTN (hypertension), benign: -- Continue Apresoline 25 mg t.i.d.. -- Continue Atenolol 100 mg daily. -- Continue Aspirin 81 mg daily. -- Continue Hydrochlorothiazide 25 mg daily. (4) Hyperlipidemia: -- Continue Simvastatin 20 mg daily. Supervising Physician Co-Signing Physician Notes Please see documentation by Mr. Medina. Agree with Mr. Medina documentation with following additions. Patient has persistent MSSA bacteremia however blood cultures from 01/02/20 demonstrate 1-culture with 1 positive culture. His states that his erythematous toes have worsened since being hospitalized. His first and second left toe and second right toe have been quite erythematous and also painful when his touched his toe. He himself denies chest pain, shortness of breath, palpitations. He admits that his toes hurt. He denied any other pain but then upon questioning admitted that he does have back pain. His left upper extremity has been edematous, as well as his lower extremities. He has been seen by Ortho for knee pain and is not felt as though his knee is septic. He had a transthoracic echo on 01/02/2020 with no vegetation noted.He underwent CT imaging of his left foot today which reported intra-articular fractures involving the lateral base of the distal phalanx of the great toe and lateral aspect of the distal portion of the proximal phalanx of the great toe. No destructive lesions reported. Diffuse subcutaneous edema of the foot. Small amount of fluid/edema surrounding the base of the distal phalanx of the great toe. Left upper extremity venous study was negative for DVT. L-spine MRI reported no diskitis or osteomyelitis. There was multilevel spinal stenosis, most severe at L3/4 level. Shoulder x-ray of the left shoulder on 12/31/2019 was negative for fracture or dislocation. Liver ultrasound done on 01/04/2020 demonstrated fatty infiltration of the liver per Radiology. His seem frustrated at times during our discussion due to the amount of testing that he has done and the fact that his toes have worsened and overall has had continued issues with bacteremia. His states that he is at his usual mental status. She states that they do not talk much, typically speaking each morning and then go about the usual weighs. She states that he is [id number] and sometimes chooses to ignore people. When asked questions today however he was quick to answer. Infectious disease continues to follow. Exam was notable for: General: No acute distress. Alert. Neck: No JVD appreciated. Cardiac: Regular. Normal S1 and S2. No murmur auscultated. Lungs: Clear to auscultation. Abdomen: Soft and nontender. Extremities: Erythematous first and second left toes and right second toe. Ecchymosis beneath the right first toe nail but he reports dropping something heavy on his toe 1 month prior to presentation. His confirms that this is not new and has been present for at least 1 month following the trauma. 2+ left upper extremity edema. 2+ bilateral lower extremity edema. Trace right upper extremity edema. No cyanosis. No Janeway lesions, Osler's nodes, or splinter hemorrhages noted. Imaging reports reviewed as noted. ECG 12/31/2019 personally reviewed: Sinus rhythm [address]/T-wave abnormality. Telemetry personally reviewed: Sinus rhythm. ASSESSMENT/PLAN: 1. Bacteremia: We discussed the fact that he may or may not have endocarditis. the decision has been made by primary service and Infectious Disease to treat for 6 weeks. Therefore, transesophageal echo may not alter his clinical course unless he does not clear his blood. If he continues to have persistently positive blood cultures, would recommend transesophageal echo and if he is found to have endocarditis, surgical intervention may be indicated. For now, primary service continues to evaluate for other sources. Antibiotic recommendations have been made by Infectious Disease. His is open to undergoing transesophageal echo if helpful. 2. Hypertension: Blood pressure has been elevated. Recommend titration of antihypertensive agents as necessary.Will defer to primary service. 3. Disposition: Please call Cardiology for any other questions or concerns, especially if he does not clear his blood cultures and there is no other identifiable source. Plan of care discussed with Dr. Fong of the primary hospitalist service. History of Present Illness Reason for Consultation: -- MSSA Bacteremia. Requesting Physician: Radames Fong MD Attending Physician: Osmin Islas MD History of Present Illness Mr. Basurto is an 84 year old male with a history of Stage III CKD, Hypertension, Hyperlipidemia, Depression, and Thrombocytopenia who was admitted to [facility] on 12/31/2019 with Gram Positive Sepsis (MSSA on BCx x 1). Cardiology was consulted regarding the possibility of Infectious Endocarditis -- although an Echocardiogram 01/02/2020 showed No Evidence of valvular vegetations. Patient initially presented to the Emergency Room on 12/25/2019 with low back pain. He was discharged home. He saw his primary care physician 3 days later on 12/28/2019. Continued to have back pain. He returned to the Emergency Room on 12/31/2019 at which time blood cultures were done, which grew MSSA. He was then admitted and started on emipiric antibiotic therapy. He complained of shoulder pain at that time in addition to his back pain. He had x-rays done of his left shoulder which were negative for any acute process. He also has AC joint osteoarthritis. He underwent an MRI of his lumbar spine on 01/02/2020 that showed lumbar spinal stenosis, but no evidence of infection. He has had a urine culture done that also showed MSSA. Patient also complained of right knee pain. Orthopedics evaluated for the possibility of a septic arthritis of his right knee -- who felt that this was NOT a septic joint. At the present time, patient continues to feel poorly -- including ongoing back pain, shoulder pain, generalized achiness. Patient denies any fevers or chills. No nausea, vomiting, or anorexia. He has not had any symptoms suggestive of stroke or mini-stroke. Echocardiogram 01/02/2020: -- Normal LV size, wall motion, and low normal systolic function. -- Mild global hypokinesis. -- Moderate concentric LVH. -- Grade I LV diastolic dysfunction. -- No valvular abnormalities. Allergies Allergy/AdvReac Type Severity Reaction Status Date / Time Sulfa (Sulfonamide Allergy Unknown Verified 12/31/19 09:36 Antibiotics) Penicillins Allergy Verified 01/03/20 20:46 Home Medications Home Medications Medication Instructions Recorded Confirmed Type hydrochlorothiazide 25 mg tablet 25 mg PO DAILY #90 tab 04/12/19 12/31/19 Rx cholecalciferol (vitamin D3) 25 1,000 units PO DAILY #30 cap 07/26/19 12/31/19 Rx mcg (1,000 unit) capsule hydralazine 25 mg tablet 25 mg PO Q8H #90 tab 07/26/19 12/31/19 Rx multivitamin 1 cap PO DAILY #30 cap 07/26/19 12/31/19 Rx omega-3 fatty acids 1,000 mg 1,000 mg PO BID #30 cap 07/26/19 12/31/19 Rx capsule vit C-vit [id number] ox-lutein 1 cap PO BID #30 cap 07/26/19 12/31/19 Rx 226 mg-200 unit-5 mg-0.8 mg capsule escitalopram oxalate 10 mg tablet 10 mg PO DAILY #30 tab 09/13/19 12/31/19 Rx atenolol 100 mg tablet 100 mg PO DAILY #30 tab 12/13/19 12/31/19 Rx cyclobenzaprine 10 mg tablet 10 mg PO TID PRN #14 tab 12/28/19 12/31/19 Rx prednisone 50 mg tablet 50 mg PO DAILY #5 tab 12/28/19 12/31/19 Rx tramadol 50 mg tablet See Rx Instructions PO Q6H PRN #16 12/28/19 12/31/19 Rx tab aspirin 81 mg PO HS 12/31/19 12/31/19 History simvastatin 20 mg PO HS 12/31/19 12/31/19 History Patient History Medical History Chronic kidney disease, stage III (moderate) (Acute) Depression (Chronic) HTN (hypertension), benign (Chronic) Hyperlipidemia (Chronic) Vitamin D deficiency Surgical History No history of previous surgery Family History Denies family history of Ovarian cancer Prostate cancer Myocardial infarction Breast cancer Colorectal cancer Social History Preferred Language: Tamaz[place] Communication Ability: Effective Visual Impairment: No Limitations Hearing Ability: Normal 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 Beliefs That Will Affect Care: None marital status: Current Living Situation: Spouse current occupational status: retired Other Information That Helps Us Care for You: No Feels Safe at Home: Yes Safety Concerns: Feels Safe At This Time Smoking Status: Never smoker Do You Dip or Chew Tobacco: No ; Second Hand Exposure: No ; Tobacco Cessation Education Requested by Patient: No Hx Alcohol Use: No Hx Substance Use: No caffeine: Yes Dental Care, Regularly: No Physical Activity Frequency: Does not Exercise Seatbelt Use: always Sunscreen Use: No Physical Exam Physical Exam: GENERAL: Patient in no acute distress. HEENT: Head is atraumatic, normocephalic. EOM's intact. Facies symmetric. No perioral cyanosis. NECK: No JVD. JVP is at the level of the clavicle sitting upright. Carotid upstrokes are + 2 bilaterally. No bruits are noted. CHEST/LUNGS: Clear to auscultation throughout all lung maynard. No wheezes, rales, or crackles. CVS: S1 and S2 are regular without murmurs, gallops, or rubs. PMI is nondisplaced. No lifts, heaves, or thrills. No abdominal aortic or renal bruits. ABDOMINAL EXAM: Bowel sounds are present. No masses, organomegaly, or tenderness. EXTREMITIES: No clubbing or cyanosis. Left arm is edematous. Intact posterior tibial and radial pulses bilaterally. NEUROLOGIC EXAM: Patient is awake, alert, and interactive. Answers questions appropriately. Speech is clear. Normal movement in all 4 extremities. Gait pattern was not assessed. DERMATOLOGIC EXAM: Erythema and tenderness over the right 1st and 2nd toes that extends onto the dorsum of the foot, erythema of left 1st toe. Left anterior distal forearm with erythematous lesion which is non-tender. No splinter hemorrhages of fingernails or under toenails. No Janeway lesions of palms or soles. Results & Data ([facility]) Vital Signs (Past 12 Hours) Vital Signs Temp Pulse Pulse Resp BP Pulse Ox 01/04/20 07:06 36.5 C 55 L 20 156/79 H 93 01/04/20 04:06 37.2 C 54 L 20 173/75 H 94 01/04/20 00:13 61 01/03/20 23:04 37.4 C 60 18 168/79 H 92 Laboratory Results Laboratory Results - last 24 hr 01/03/20 01/03/20 01/04/20 16:17 20:32 07:50 WBC RBC Hgb Hct MCV MCH MCHC RDW Std Deviation RDW Coeff of Alize Plt Count MPV Immature Gran % (Auto) Neut % (Auto) Lymph % (Auto) Casey % (Auto) Eos % (Auto) Baso % (Auto) Immature Gran # (Auto) Neut # (Auto) Lymph # (Auto) Casey # (Auto) Eos # (Auto) Baso # (Auto) ESR PT 13.7 H INR 1.3 H Sodium Potassium Chloride Carbon Dioxide Anion Gap BUN Creatinine Est Cr Clr Drug Dosing Est GFR ( Amer) Est GFR (Non-Af Amer) BUN/Creatinine Ratio Glucose POC Glucose 118 H 108 H Calcium Phosphorus Total Bilirubin AST ALT Alkaline Phosphatase C-Reactive Protein Total Protein Albumin Globulin Albumin/Globulin Ratio 01/04/20 01/04/20 01/04/20 07:50 07:50 07:50 WBC 13.76 H RBC 4.52 L Hgb 14.0 Hct 41.6 L MCV 92.0 MCH 31.0 MCHC 33.7 RDW Std Deviation 53.5 H RDW Coeff of Alize 15.8 H Plt Count 159 MPV 12.8 H Immature Gran % (Auto) 1.5 Neut % (Auto) 78.0 Lymph % (Auto) 15.1 Casey % (Auto) 4.9 Eos % (Auto) 0.3 Baso % (Auto) 0.2 Immature Gran # (Auto) 0.21 H Neut # (Auto) 10.72 H Lymph # (Auto) 2.08 Casey # (Auto) 0.68 H Eos # (Auto) 0.04 Baso # (Auto) 0.03 ESR 66 H PT INR Sodium 140 Potassium 3.6 Chloride 108 H Carbon Dioxide 26 Anion Gap 6.0 BUN 43 H Creatinine 1.30 Est Cr Clr Drug Dosing 52.5 Est GFR ( Amer) 58.9 Est GFR (Non-Af Amer) 50.8 BUN/Creatinine Ratio 33.4 H Glucose 123 H POC Glucose Calcium 7.9 L Phosphorus 4.3 Total Bilirubin 2.7 H D AST 68 H ALT 61 Alkaline Phosphatase 109 C-Reactive Protein 17.00 H Total Protein 5.5 L Albumin 1.5 L Globulin 4.0 Albumin/Globulin Ratio 0.4 L Medications Administered Active Medications Generic Name Dose Route Start Last Admin Trade Name Freq PRN Reason Stop Dose Admin Acetaminophen 650 mg 12/31/19 14:03 01/02/20 16:38 Tylenol PO 01/30/20 14:02 650 mg Q4H PRN Administration pain/fever Aspirin 81 mg 12/31/19 21:00 01/03/20 20:24 Ecotrin Ectab PO 01/30/20 20:59 81 mg HS KYMBERLY Administration Atenolol 100 mg 01/01/20 09:00 01/04/20 08:36 Tenormin PO 01/31/20 08:59 100 mg DAILY KYMBERLY Administration Diphenhydramine HCl 25 mg 01/03/20 12:21 Benadryl IV 02/02/20 12:20 Q4H PRN Allergy Symptoms Enoxaparin Sodium 40 mg 12/31/19 15:00 01/03/20 14:00 Lovenox SQ 01/30/20 14:59 40 mg Q24H KYMBERLY Administration Epinephrine HCl 0.3 mg 01/03/20 14:01 Epinephrine SC 02/02/20 14:00 UD PRN Allergic Reaction Protocol Escitalopram Oxalate 10 mg 01/01/20 09:00 01/04/20 08:36 Lexapro Tab PO 01/31/20 08:59 10 mg DAILY KYMBERLY Administration Gadobutrol 10.5 ml 01/02/20 16:07 01/02/20 16:07 Gadavist 65ml IV 01/06/20 16:06 10.5 ml ONCE PRN Administration Interaction Checking Hydralazine HCl 25 mg 01/03/20 09:00 01/04/20 08:37 Apresoline PO 02/02/20 08:59 25 mg TID KYMBERLY Administration Hydrochlorothiazide 25 mg 01/04/20 09:00 01/04/20 08:38 Hctz PO 02/03/20 08:59 25 mg QAM KYMBERLY Administration Nafcillin Sodium 2,000 mg/ 108 mls @ 100 mls/hr 01/03/20 14:00 01/04/20 07:31 Dextrose IV 02/14/20 13:59 Infused Q4H KYMBERLY Infusion Morphine Sulfate 4 mg 12/31/19 14:03 12/31/19 15:10 Morphine Sulfate IV 01/14/20 14:02 4 mg Q4H PRN Administration Pain Multivitamins/Minerals 1 tab 01/01/20 09:00 01/04/20 08:36 Multivitamin W/ Minerals Tab PO 01/31/20 08:59 1 tab DAILY KYMBERLY Administration Ondansetron HCl 4 mg 12/31/19 14:03 Zofran IV 01/30/20 14:02 Q4H PRN Nausea Oxycodone HCl 5 mg 01/03/20 20:47 01/04/20 08:46 Roxicodone Immediate Rel PO 01/17/20 20:46 5 mg Q4H PRN Administration Moderate Pain Oxycodone HCl 10 mg 01/03/20 20:50 Roxicodone Immediate Rel PO 01/17/20 20:49 Q4H PRN Severe Pain Simvastatin 20 mg 12/31/19 21:00 01/03/20 20:24 Zocor PO 01/30/20 20:59 20 mg HS KYMBERLY Administration Vitamin D 1,000 units 01/01/20 09:00 01/04/20 08:37 Vitamin D3 PO 01/31/20 08:59 1,000 units DAILY KYMBERLY Administration PG Care Time/CCT Total # of Minutes Spent Total Time Spent with Patient: Total time spent is greater than 50% in coordination of care (as documented) at patient's floor/unit and/or counseling patient: Coding Level of Care Code 53181 Initial Inpt Care Lvl 3 Diagnoses Bacteremia due to methicillin susceptible Staphylococcus aureus (MSSA) R78.81; B95.61 Gram positive sepsis A41.89 HTN (hypertension), benign I10 Hyperlipidemia E78.2 Hyperlipidemia type: mixed hyperlipidemia (1) Hyperlipidemia Hyperlipidemia type: mixed hyperlipidemia Qualified Code(s): E78.2 - Mixed hyperlipidemia
[2020-01-04] MEDS ORDERED: lisinopriL 10 MG TAB PO SCH ×2 (13:00→21:00)
--- NOTE | 2020-01-04 13:10 | Infectious Disease Progress Nt ---
Date of Service January 04, 2020 Assessment & Plan (1) Gram positive sepsis: pt now on nafcillin. repeat blood cultures +, 01/03 pending. suspect remains + due to ongoing infection of knee, for surgery, follow results. due to pesistant + blood cultures, would give range of 6 weeks IV abx, no picc line now as blood cultures remain +. echo negative. would consider alternative to nafcillin as this is multiple times/day and has increased risk of allergic intersitial nephritis when used fpc. would consider Dapto 6mg/kg daily. will follow. Admission and Anticipated Discharge Date Admission Date: December 31, 2019 Subjective pt cultures from 01/01 now growing S. aures as well. no f/c, knee effusion noted, npo after mn. wbc 13.7, on nafcillin now. creat 1.3 01/03 cultures pending. Results & Data ([facility]) Vital Signs (Past 12 Hours) Vital Signs Temp Pulse Pulse Resp BP Pulse Ox 01/04/20 11:20 36.4 C L 54 L 20 170/77 H 94 01/04/20 09:43 54 L 01/04/20 07:06 36.5 C 55 L 20 156/79 H 93 01/04/20 04:06 37.2 C 54 L 20 173/75 H 94 Laboratory Results Microbiology 01/02/20 14:17 Blood Aerobic Blood Culture - Preliminary Staphylococcus aureus 01/02/20 14:17 Blood Anaerobic Blood Culture - Preliminary No growth in Anaerobic bottle after 24 hours. 01/02/20 14:18 Blood Aerobic Blood Culture - Preliminary No growth in Aerobic bottle after 24 hours. 01/02/20 14:18 Blood Anaerobic Blood Culture - Preliminary No growth in Anaerobic bottle after 24 hours. 01/01/20 11:50 Blood Aerobic Blood Culture - Preliminary Staphylococcus aureus 01/01/20 11:50 Blood Anaerobic Blood Culture - Preliminary No growth in Anaerobic bottle after 48 hours. 01/01/20 11:41 Blood Aerobic Blood Culture - Preliminary Staphylococcus aureus 01/01/20 11:41 Blood Anaerobic Blood Culture - Preliminary No growth in Anaerobic bottle after 48 hours. 12/31/19 12:23 Blood Aerobic Blood Culture - Preliminary Staphylococcus aureus 12/31/19 12:23 Blood Anaerobic Blood Culture - Preliminary No growth in Anaerobic bottle after 48 hours. 12/31/19 13:10 Urine,Clean Catch Urine Culture - Final Staphylococcus aureus 12/31/19 12:47 Blood Aerobic Blood Culture - Preliminary Staphylococcus aureus 12/31/19 12:47 Blood Anaerobic Blood Culture - Final PG Care Time/CCT Total # of Minutes Spent Total Time Spent with Patient: Total time spent is greater than 50% in coordination of care (as documented) at patient's floor/unit and/or counseling patient: Coding Level of Care Code 04731 Subseq Hosp Care Lvl 1 Diagnoses Gram positive sepsis A41.89
--- NOTE | 2020-01-04 14:09 | Ultrasound Report ---
US liver CLINICAL HISTORY: MSSA bacteremia, elevated bili, AST ?cholecystitis COMPARISON STUDY: No previous studies for comparison. FINDINGS: Fatty infiltration the liver. Normal gallbladder. Trace gallbladder sludge. No shadowing ga llstones. Common bile duct 6 mm. The right kidney is negative for hydronephrosis. IMPRESSION: 1. Fatty infiltration of liver. 2. Trace amount gallbladder sludge. 3. Normal caliber bile ducts. ACT 112: Negative or not required by law. The above report was generated using voice recognition software. It may contain grammatical, syntax or spelling errors. Electronically signed by: Khoi Davidson M.D. 01/04/2020 2:08 PM
[2020-01-04] MEDS: ENOXAPARIN INJ 40 MG/0.4 ML SYR SQ SCH (16:15)
[2020-01-04] MEDS ORDERED: IOVERSOL 100ml IV PRN (16:44)
--- NOTE | 2020-01-04 16:59 | CT Scan Report ---
CT foot LT w con CT DOSE: 214.20 mGy.cm CLINICAL HISTORY: Abscess, lateral aspect of the distal right toe. Possible osteomyelitis. TECHNIQUE: The patient was scanned in a dynamic helical fashion during intravenous administration of 94 cc of Optiray 320. A dose lowering technique was utilized adhering to the principles of ALARA. Sa gittal and coronal reformatted imaging was performed. COMPARISON STUDY: X-ray study dated 01/01/2020 FINDINGS: There is mild diffuse subcutaneous edema. No gas is present within the soft tissues. There are no fluid collections to indicate an abscess. There is a small amount of fluid/edema surroun ding the base of the distal phalanx of the great toe. This is not ring-enhancing unlikely to represen t an abscess. This may be posttraumatic. There is an intra-articular fracture involving the lateral base of the distal phalanx of the great to e. There is an intra-articular fracture involving the lateral aspect of the distal portion of the pro ximal phalanx of the great toe. There are no destructive lesions to indicate acute osteomyelitis. IMPRESSION: 1. Intra-articular fractures involving the lateral base of the distal phalanx of the great toe, and l ateral aspect of the distal portion the proximal phalanx of the great toe. Please correlate with any history of trauma as none was given. 2. There are no destructive lesions to indicate acute osteomyelitis 3. Diffuse subcutaneous edema the foot 4. Small amount of fluid/edema surrounding the base of distal phalanx of the great toe. As this is no t ring-enhancing, it is unlikely to represent an abscess. This may be related to the underlying fract ure. Clinical follow-up is advocated. ACT 112: Negative or not required by law. Electronically signed by: Rd Us M.D. 01/04/2020 4:58 PM
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
[2020-01-04] MEDS ORDERED: AMLODIPINE BESYLATE 5 MG TAB PO ONE (18:15)
[2020-01-04] MEDS ORDERED: DAPTOMYCIN CONSULT ACTIVE PRN (18:25)
[2020-01-04] MEDS ORDERED: DAPTOmycin 450 MG in SYRINGE 0 ML IV ONE (19:00)
--- NOTE | 2020-01-04 19:03 | XRay Report ---
XR toe(s) RT min 2V CLINICAL HISTORY: 2nd toe swelling and erythema ?# COMPARISON: None. DISCUSSION: No fractures or dislocations are visualized. There are no erosive or destructive changes. There are mild degenerative changes. IMPRESSION: 1. No acute fractures 2. Mild degenerative change 3. No erosive or destructive changes identified ACT 112: Negative or not required by law. Electronically signed by: Rd Us M.D. 01/04/2020 7:02 PM
[2020-01-04] MEDS: SIMVASTATIN 20 MG TAB PO SCH (20:16)
[2020-01-04] MEDS: ACETAMINOPHEN 325 MG TAB PO PRN (20:17)
[2020-01-04] MEDS: ASPIRIN 81 MG ECTAB PO SCH (20:17)
[2020-01-05 06:32] LABS: Basophils # (auto) 0.01 K/uL (0-0.2); Basophils % (auto) 0.1 %; Eosinophils # (auto) 0.05 K/uL (0-0.5); Eosinophils % (auto) 0.4 %; Hematocrit (blood only) 41.3 % (42-52); Hemoglobin 14.1 g/dL (14.0-18.0); Immature Granulocytes # (auto) 0.18 K/uL (0.00-0.02); Immature Granulocytes % (auto) 1.4 %; Lymphocytes # (auto) 1.28 K/uL (1.2-3.4); Lymphocytes % (auto) 9.6 %; Mean Corpuscular Hemoglobin 31.2 pg (25-34); Mean Corpuscular Hgb Conc 34.1 g/dL (32-36); Mean Corpuscular Volume 91.4 fL (80-100); Mean Platelet Volume 13.7 fL (7.4-10.4); Monocytes # (auto) 1.52 K/uL (0.11-0.59); Monocytes % (auto) 11.4 %; Neutrophils # (auto) 10.28 K/uL (1.4-6.5); Neutrophils % (auto) 77.1 %; Platelet Count 208 K/uL (130-400); RDW Coefficient of Variation 16.3 % (11.5-14.5); RDW Standard Deviation 54.2 fL (36.4-46.3); Red Blood Count 4.52 M/uL (4.7-6.1); White Blood Count 13.32 K/uL (4.8-10.8)
[2020-01-05 08:08] LABS: Albumin Globulin Ratio 0.4 (0.9-2); Albumin Level 1.5 gm/dl (3.4-5.0); BUN Creatinine Ratio 33.1 (10-20); Bilirubin,Total 1.3 mg/dl (0.2-1); Calcium 7.7 mg/dl (8.5-10.1); Creatinine Clr Calc Pharmacy 39.4 ml/min; Est GFR (African American) 41.4; Est GFR (Non-African American) 35.7; Globulin 4.1 gm/dl (2.5-4.0); Total Protein 5.6 gm/dl (6.4-8.2)
[2020-01-05] MEDS ORDERED: LACTATED RINGER'S 1,000 ML IV SCH (08:30)
[2020-01-05] MEDS: ESCITALOPRAM OXALATE 10 MG TAB PO SCH (09:15)
[2020-01-05] MEDS: CHOLECALCIFEROL 1,000 UNITS 25 MCG TAB PO SCH (09:16)
[2020-01-05] MEDS: ATENOLOL 50 MG TABLET PO SCH (09:16)
[2020-01-05] MEDS: CEROVITE ADV FORMULA TAB PO SCH (09:16)
[2020-01-05 09:17] LABS: Potassium 3.6 mmol/L (3.5-5.1)
[2020-01-05] MEDS: AMLODIPINE BESYLATE 5 MG TAB PO SCH (09:17)
--- NOTE | 2020-01-05 12:27 | Orthopedic Progress Note ---
Date of Service January 05, 2020 Assessment & Plan (1) Impingement syndrome, shoulder, left: No evidence for bacteremia coming from L shoulder. Recommend PT for RC strengthening program. No corticosteroid injection due to ongoing bacteremia No need for advanced imaging of left shoulder, as not likely to change treatment Feel free to contact ortho with any questions. Present on Admission?: Yes (2) Left rotator cuff tear: Present on Admission?: Yes Admission and Anticipated Discharge Date Admission Date: December 31, 2019 Subjective Patient seen for his left shoulder this morning. Duration and onset of symptoms is unclear, as Dr. Fong has noted, however, he denies any pain at rest this morning. It hurts him when he actively raises the arm. No prior treatments that he can recall. Denies numbness and tingling down the arm. Physical Exam Physical Exam: L shoulder: no erythema or swelling to suggest infection. Active FF to 90, however, passively I can get him to 160 with no discomfort. He does have pain with Neer's test and with empty can test, indicative of impingment and rotator cuff pathology. No pain with ER, IR with arm at the side. Distally NVI. He does have swelling and edema distal to the left elbow with about 8 x 4 cm area of erythema over volar L wrist. 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 No GH joint arthritis or fractures. Acromiohumeral interval well preserved.
[2020-01-05] MEDS: MoRPHine SULFATE 4 MG/ML 1 ML CARP\\VIAL IV PRN (13:09)
--- NOTE | 2020-01-05 13:21 | Infectious Disease Progress Nt ---
Date of Service January 05, 2020 Assessment & Plan (1) Gram positive sepsis: continue dapto, repeat cultures x 2. would consider MRI t spine, l spine negative. workup negative to date re:source. ? skin/soft tissue. Regardless, will need 6 weeks IV abx min, hold picc as cultures remain +. Admission and Anticipated Discharge Date Admission Date: December 31, 2019 Subjective pt with + cultures 01/03 - [facility] /. previous culture growing MSSA. was briefly on nafcillin, now on dapto, creat increased 1.7. wbc remains at 13. afebrile. No ortho procedure planned, had negative liver ultrasound, negative ct foot with exception toe fracture, no osteo, no abscess noted. no plan for BASIA. Results & Data ([facility]) Vital Signs (Past 12 Hours) Vital Signs Temp Pulse Pulse Resp BP BP Pulse Ox 01/05/20 11:37 36.5 C 54 L 18 176/77 H 95 01/05/20 07:33 60 01/05/20 07:11 37.0 C 56 L 18 150/66 H 97 01/05/20 03:38 36.6 C 52 L 18 147/70 H 94 Laboratory Results Microbiology 01/04/20 07:50 Blood Aerobic Blood Culture - Preliminary No growth in Aerobic bottle after 24 hours. 01/04/20 07:50 Blood Anaerobic Blood Culture - Preliminary No growth in Anaerobic bottle after 24 hours. 01/04/20 07:53 Blood Aerobic Blood Culture - Preliminary Gram positive cocci 01/02/20 14:17 Blood Aerobic Blood Culture - Preliminary Staphylococcus aureus 01/02/20 14:17 Blood Anaerobic Blood Culture - Preliminary No growth in Anaerobic bottle after 48 hours. 01/02/20 14:18 Blood Aerobic Blood Culture - Preliminary No growth in Aerobic bottle after 48 hours. 01/02/20 14:18 Blood Anaerobic Blood Culture - Preliminary No growth in Anaerobic bottle after 48 hours. 01/01/20 11:50 Blood Aerobic Blood Culture - Preliminary Staphylococcus aureus 01/01/20 11:50 Blood Anaerobic Blood Culture - Preliminary No growth in Anaerobic bottle after 48 hours. 01/01/20 11:41 Blood Aerobic Blood Culture - Preliminary Staphylococcus aureus 01/01/20 11:41 Blood Anaerobic Blood Culture - Preliminary No growth in Anaerobic bottle after 48 hours. 12/31/19 12:23 Blood Aerobic Blood Culture - Preliminary Staphylococcus aureus 12/31/19 12:23 Blood Anaerobic Blood Culture - Preliminary No growth in Anaerobic bottle after 48 hours. 12/31/19 13:10 Urine,Clean Catch Urine Culture - Final Staphylococcus aureus 12/31/19 12:47 Blood Aerobic Blood Culture - Preliminary Staphylococcus aureus 12/31/19 12:47 Blood Anaerobic Blood Culture - Final PG Care Time/CCT Total # of Minutes Spent Total Time Spent with Patient: Total time spent is greater than 50% in coordination of care (as documented) at patient's floor/unit and/or counseling patient: Coding Level of Care Code 03792 Subseq Hosp Care Lvl 1 Diagnoses Gram positive sepsis A41.89
[2020-01-05] MEDS: ENOXAPARIN INJ 40 MG/0.4 ML SYR SQ SCH (14:22)
[2020-01-05] MEDS ORDERED: LIDOCAINE HCL 1% 20 ML VIAL ONE (15:08)
--- NOTE | 2020-01-05 16:23 | Podiatry Consultation ---
Date of Consultation January 05, 2020 Assessment & Plan (1) Ingrown toenail of left foot: (2) Cellulitis of left toe: History of Present Illness Attending Physician: Radames Fong MD patient seen today after discussion with with reguards to the left hallux with infection and toenail trauma / ingrown infected toenail. There was erythema surrounding the hallux with swelling and abscess formation at the base of the toenail lateral aspect. I discussed with the patient that I recommend a toenail avulsion and culture. Consent was obtained and witness by his nursing team. Toe was cleaned with Betadine and anesthetized with 10 c of lidocaine !% plain. Next the toenail was avulsed, there was about 1-2 cc of purulent drainage present and this was expressible from the toe both after the toenail was removed as well as with manual expression. - patient tolerated the procedure well and dressing were applied consisting of adaptic and roll gauze, I spoke with nursing about reinforcing the dressings with they will likely need today. There was significant purulent drainage from the toe and c and s was obtained and is pending now. Allergies Allergy/AdvReac Type Severity Reaction Status Date / Time Sulfa (Sulfonamide Allergy Unknown Verified 12/31/19 09:36 Antibiotics) Penicillins Allergy Verified 01/03/20 20:46 Home Medications Home Medications Medication Instructions Recorded Confirmed Type hydrochlorothiazide 25 mg tablet 25 mg PO DAILY #90 tab 04/12/19 12/31/19 Rx cholecalciferol (vitamin D3) 25 1,000 units PO DAILY #30 cap 07/26/19 12/31/19 Rx mcg (1,000 unit) capsule hydralazine 25 mg tablet 25 mg PO Q8H #90 tab 07/26/19 12/31/19 Rx multivitamin 1 cap PO DAILY #30 cap 07/26/19 12/31/19 Rx omega-3 fatty acids 1,000 mg 1,000 mg PO BID #30 cap 07/26/19 12/31/19 Rx capsule vit C-vit N-brtyuq-tyow ox-lutein 1 cap PO BID #30 cap 07/26/19 12/31/19 Rx 226 mg-200 unit-5 mg-0.8 mg capsule escitalopram oxalate 10 mg tablet 10 mg PO DAILY #30 tab 09/13/19 12/31/19 Rx atenolol 100 mg tablet 100 mg PO DAILY #30 tab 12/13/19 12/31/19 Rx cyclobenzaprine 10 mg tablet 10 mg PO TID PRN #14 tab 12/28/19 12/31/19 Rx prednisone 50 mg tablet 50 mg PO DAILY #5 tab 12/28/19 12/31/19 Rx tramadol 50 mg tablet See Rx Instructions PO Q6H PRN #16 12/28/19 12/31/19 Rx tab aspirin 81 mg PO HS 12/31/19 12/31/19 History simvastatin 20 mg PO HS 12/31/19 12/31/19 History Patient History Medical History Chronic kidney disease, stage III (moderate) (Acute) Depression (Chronic) HTN (hypertension), benign (Chronic) Hyperlipidemia (Chronic) Vitamin D deficiency Surgical History No history of previous surgery Family History Denies family history of Ovarian cancer Prostate cancer Myocardial infarction Breast cancer Colorectal cancer Social History Preferred Language: Kiswahili Communication Ability: Effective Visual Impairment: No Limitations Hearing Ability: Normal Beef Pusher Required: No Beliefs That Will Affect Care: None marital status: Current Living Situation: Spouse current occupational status: retired Other Information That Helps Us Care for You: No Feels Safe at Home: Yes Safety Concerns: Feels Safe At This Time Smoking Status: Never smoker Do You Dip or Chew Tobacco: No ; Second Hand Exposure: No ; Tobacco Cessation Education Requested by Patient: No Hx Alcohol Use: No Hx Substance Use: No caffeine: Yes Dental Care, Regularly: No Physical Activity Frequency: Does not Exercise Seatbelt Use: always Sunscreen Use: No Physical Exam Skin: left hallux with erythema peripherally around the great toe and with swelling and abscess formation at the base of the digit, post nail avulsion 1-2 cc of purulent drainage was expressed from the area and c and s obtained, patient is currently on abx at this time, dressing applied after procedure and will need reinforced by nursing as well Results & Data Vital Signs (Past 12 Hours) Vital Signs Temp Pulse Pulse Resp BP Pulse Ox 01/05/20 15:20 36.8 C 56 L 18 170/95 H 96 01/05/20 11:37 36.5 C 54 L 18 176/77 H 95 01/05/20 07:33 60 01/05/20 07:11 37.0 C 56 L 18 150/66 H 97
[2020-01-05] MEDS: DAPTOmycin 450 MG in SYRINGE 0 ML IV SCH (18:26)
--- NOTE | 2020-01-05 18:54 | CT Scan Report ---
CT head/brain wo con CLINICAL HISTORY: 84 years-old Male with LUE weakness ?CVA. Acute left upper extremity weakness with strokelike symptoms TECHNIQUE: Multiple axial CT images of the head were obtained without contrast. A dose lowering tech nique was utilized adhering to the principles of ALARA. CT DOSE: 949.04 mGy.cm COMPARISON: None. FINDINGS: Motion degraded exam. Age-related involutional changes with minimal patchy white matter hypodensities suggestive of probable chronic microvascular ischemic change. Cerebral vascular calcifications are n oted. No acute intracranial hemorrhage, midline shift, intracranial mass, hydrocephalus, territorial ischemia or abnormal extra-axial collection. The vertex is not imaged. The calvarium is intact. The paranasal sinuses, mastoid air cells, and mid dle ear cavities are clear. IMPRESSION: Motion degraded exam. No acute intracranial abnormality identified. ACT 112: Negative or not required by law. The above report was generated using voice recognition software. It may contain grammatical, syntax o r spelling errors. Electronically signed by: Ulises Newton M.D. 01/05/2020 6:53 PM
--- NOTE | 2020-01-05 19:52 | Hospitalist Progress Note ---
Date of Service January 05, 2020 Assessment & Plan (1) Bacteremia due to methicillin susceptible Staphylococcus aureus (MSSA): Discussed with Dr Johnson given persistently positive blood culture, continue on daptomycin. Very unclear history from patient and his . Source possible collection/abscess under left toenail (larger today) vs. thoracic spine discitis MRI thoracic spine w+w/o contrast ordered but patient unable to tolerate positioning. Will try again tomorrow possibly with Ativan required. Discussed with Dr Miller who will come and review patient for possible drain of abscess. No prosthetic joints or grafts as per his . (2) Cellulitis: Continue daptomycin as above. Possible abscess to be assessed by podiatry as above. (3) Infective endocarditis: Still possible but less convincing septic emboli. Erythema on his left forearm improving with decreased swelling. TTE negative for vegetation; mitral valve normal in structure and function, significant mitral regurgitation is absent. Suggest 6 weeks of antibiotics for this patient from negative BC regardless of BASIA results therefore only change in management would be surgery and would need to rule out all other sources first. I do not feel a BASIA is warranted until blood cultures after toe has been drained if these remain positive. (4) Bacteriuria: MSSA as above - most likely not source given prior UA 3/7 normal. (5) Closed fracture of one or more phalanges of left foot: Unclear traumatic event. Possibly crowbar incident with unspecified time frame as per patient. Will defer to podiatry for immobilization and management once infection controlled. (6) Lsuvl-ee-kzdzeoa kidney injury: Mildly elevated today due to lisinopril and HCTZ use yesterday. HCTZ now d/c and will reduce lisinopril. (7) Back pain: MRI lumbar spine negative for discitis/osteomyelitis. Now having T8/9 midline tenderness on exam. MRI thoracic spine ordered as above to r/o discitis. Suspected secondary to generalized myalgias from MSSA bacteremia. Total CK on admission normal. Moderate spinal stenosis at L3-4 unlikely contributory. Suspect a lot of his pain if generalized anasarca from hypoalbuminemia and recent steroid use. (8) Weakness: Suspect secondary to infection alone. (9) Left shoulder pain: XR negative for # Appreciate ortho assessment - suspected impingement syndrome, agree steroids currently contraindicated Given consistently not moving this arm as well as right side, difficulty getting through MRIs and difficult history and exam will get CT head to r/o large CVA or bleed. I suspect he is just not moving it due to pain however. (10) Left upper extremity swelling: Secondary to hypoalbuminemia and immobility of this arm (not moving and keeping this low down due to shoulder pain) US venous doppler negative for DVT Elevate as much as possible to reduce swelling, use high arm sling (11) Thrombocytopenia: Now resolved. Mildly decreased in setting of MSSA bacteremia not concerning. (12) HTN (hypertension), benign: Continue home atenolol 100mg daily and hydralazine 25mg TID. Added lisinopril and amlodipine given continued elevated blood pressure. Unfortunately renal function unable to tolerate HCTZ to also help with swelling. (13) Hyperlipidemia: Holding simvastatin while on daptomycin (14) Depression: Continue home escitalopram (15) Vitamin D deficiency: Continue home cholecalciferol 1000 units daily (16) DVT prophylaxis: Lovenox 40mg SQ daily Admission and Anticipated Discharge Date Admission Date: December 31, 2019 Subjective Patient now reporting main concern of thoracic back pain and not wanting to move. No radiation of this pain down to his legs. No change in bowel or urine incontinence. Unable to give me a severity of the pain. Worse with any movement. Shoulder not bothering him so much today. Still unable to tell me about any traumatic event to his toe to cause his fracture. Updated his over the phone and all questions and concerns answered. Review of Systems Review of Systems: All systems reviewed & are unremarkable except as noted in HPI & below Physical Exam Constitutional: + ill appearing; + not well nourished and no acute distress Eyes: + anicteric sclerae; normal pupil size ENMT: external ear and nose normal, oropharynx normal Neck: trachea midline Respiratory: normal respiratory effort, lungs clear to auscultation Cardiovascular: Rate/Rhythm: regular rate and regular rhythm Heart Sounds: no murmur Extremities: normal capillary refill, + pedal edema (1+ equal b/l up to knees) and + edema (LUE edema mild improvement 2+); no calf tenderness Gastrointestinal (Abdomen): Inspection/Auscultation: abdomen normal to inspection and normal bowel sounds Percussion/Palpation: abdomen soft; abdomen nontender, no guarding and abdomen not rigid Skin: larger fluid collection around his 1st toe on left foot, dark erythema on left and right toes similar to previous days. Erythematous rash on left forearm improved with less blistering. Neurologic: moves all extremities (very painful left shoulder movements in any direction), awake (but lethargic, only answers a few questions) and + confused (unclear if at baseline); no focal motor deficits (good cosmetic sales consultant strength b/l, full exam limited due to swelling) Motor/Sensory: no tremor Psychiatric: Orientation: alert and oriented x 3 Genitourinary: no CVA tenderness Lymphatic: no cervical or axillary lymphadenopathy Results & Data ([facility]) Vital Signs (Past 12 Hours) Vital Signs Temp Pulse Pulse Resp BP Pulse Ox 01/05/20 19:06 36.7 C 61 18 150/82 H 92 01/05/20 17:40 63 01/05/20 15:20 36.8 C 56 L 18 170/95 H 96 01/05/20 11:37 36.5 C 54 L 18 176/77 H 95 01/05/20 07:33 60 PG Care Time/CCT Total # of Minutes Spent Total Time Spent with Patient: Total time spent is greater than 50% in coordination of care (as documented) at patient's floor/unit and/or counseling patient: Coding Level of Care Code 89470 Subseq Hosp Care Lvl 3 Diagnoses Bacteremia due to methicillin susceptible Staphylococcus aureus (MSSA) R78.81; B95.61 Cellulitis L03.114 Laterality: left Site of cellulitis: extremity Site of cellulitis of extremity: upper extremity Infective endocarditis I33.0 Infective endocarditis organism: bacterial Chronicity: acute Bacteriuria R82.71 Closed fracture of one or more phalanges of left foot S92.402A Encounter type: initial encounter Toe: great toe Phalanx: unspecified phalanx Fracture alignment: displaced Nczlv-pr-evqmqpi kidney injury N17.9; N18.3 Acute renal failure type: unspecified Chronic kidney disease stage: stage 3 (moderate) Back pain M54.5 Back pain location: low back pain Chronicity: acute Back pain laterality: right Sciatica presence: without sciatica Weakness R53.1 Left shoulder pain M25.512 Chronicity: acute Left upper extremity swelling M79.89 Thrombocytopenia D69.6 HTN (hypertension), benign I10 Hyperlipidemia E78.2 Hyperlipidemia type: mixed hyperlipidemia Depression F32.9 Depression Type: unspecified Vitamin D deficiency E55.9 DVT prophylaxis Z29.9 (1) Cellulitis Laterality: left Site of cellulitis: extremity Site of cellulitis of extremity: upper extremity Qualified Code(s): L03.114 - Cellulitis of left upper limb (2) Infective endocarditis Infective endocarditis organism: bacterial Chronicity: acute Qualified Code(s): I33.0 - Acute and subacute infective endocarditis (3) Closed fracture of one or more phalanges of left foot Encounter type: initial encounter Toe: great toe Phalanx: unspecified phalanx Fracture alignment: displaced Qualified Code(s): S92.402A - Displaced unspecified fracture of left great toe, initial encounter for closed fracture (4) Uyilr-vg-wcfnupb kidney injury Acute renal failure type: unspecified Chronic kidney disease stage: stage 3 (moderate) Qualified Code(s): N17.9 - Acute kidney failure, unspecified; N18.3 - Chronic kidney disease, stage 3 (moderate) (5) Back pain Back pain location: low back pain Chronicity: acute Back pain laterality: right Sciatica presence: without sciatica Qualified Code(s): M54.5 - Low back pain (6) Left shoulder pain Chronicity: acute Qualified Code(s): M25.512 - Pain in left shoulder (7) Hyperlipidemia Hyperlipidemia type: mixed hyperlipidemia Qualified Code(s): E78.2 - Mixed hyperlipidemia (8) Depression Depression Type: unspecified Qualified Code(s): F32.9 - Major depressive disorder, single episode, unspecified
[2020-01-05] MEDS: ASPIRIN 81 MG ECTAB PO SCH (20:31)
[2020-01-06 06:24] LABS: Basophils # (auto) 0.01 K/uL (0-0.2); Basophils % (auto) 0.1 %; Eosinophils # (auto) 0.09 K/uL (0-0.5); Eosinophils % (auto) 0.7 %; Hematocrit (blood only) 38.6 % (42-52); Immature Granulocytes % (auto) 1.4 %; Lymphocytes # (auto) 1.36 K/uL (1.2-3.4); Lymphocytes % (auto) 9.8 %; Mean Corpuscular Hemoglobin 31.1 pg (25-34); Mean Corpuscular Hgb Conc 33.7 g/dL (32-36); Mean Corpuscular Volume 92.3 fL (80-100); Mean Platelet Volume 12.5 fL (7.4-10.4); Monocytes % (auto) 7.9 %; Neutrophils # (auto) 11.08 K/uL (1.4-6.5); Neutrophils % (auto) 80.1 %; Platelet Count 183 K/uL (130-400); RDW Coefficient of Variation 16.2 % (11.5-14.5); RDW Standard Deviation 54.3 fL (36.4-46.3); Red Blood Count 4.18 M/uL (4.7-6.1); White Blood Count 13.84 K/uL (4.8-10.8)
[2020-01-06 07:03] LABS: Albumin Level 1.5 gm/dl (3.4-5.0); BUN Creatinine Ratio 39.9 (10-20); Calcium 7.9 mg/dl (8.5-10.1); Creatinine Clr Calc Pharmacy 34.8 ml/min; Est GFR (African American) 35.6; Est GFR (Non-African American) 30.7; Potassium 3.4 mmol/L (3.5-5.1)
[2020-01-06 07:06] LABS: Albumin Globulin Ratio 0.4 (0.9-2); Globulin 3.7 gm/dl (2.5-4.0); Total Protein 5.2 gm/dl (6.4-8.2)
[2020-01-06] MEDS: ESCITALOPRAM OXALATE 10 MG TAB PO SCH (08:23)
[2020-01-06] MEDS: AMLODIPINE BESYLATE 5 MG TAB PO SCH (08:23)
[2020-01-06] MEDS: CHOLECALCIFEROL 1,000 UNITS 25 MCG TAB PO SCH (08:23)
[2020-01-06] MEDS: ATENOLOL 50 MG TABLET PO SCH (08:24)
[2020-01-06] MEDS: CEROVITE ADV FORMULA TAB PO SCH (08:24)
[2020-01-06] MEDS: LACTATED RINGER'S 1,000 ML IV SCH ×2 (08:25→16:29)
--- NOTE | 2020-01-06 10:51 | Podiatry Consultation ---
Date of Consultation January 06, 2020 Assessment & Plan (1) Ingrown toenail of left foot: (2) Cellulitis of left toe: History of Present Illness Attending Physician: Radames Fong MD Patient seen today, and dressings removed and toe evaluated. No further expressible purulence from the abscess present at the base of the left great toe, there was still some maceration, I suspect this is from the toenail avulsion procedure as patient had bleeding and strike through on his dressings, all dressings removed today and area was cleaned with Betadine, no further purulent drainage was present, patient had some pain while I was changing the dressing but this resolved and stopped once I finished, area is well healing otherwise. Allergies Allergy/AdvReac Type Severity Reaction Status Date / Time Penicillins Allergy Unknown Unknown Verified 01/06/20 07:44 Sulfa (Sulfonamide Allergy Unknown Unknown Verified 01/06/20 07:44 Antibiotics) Home Medications Home Medications Medication Instructions Recorded Confirmed Type hydrochlorothiazide 25 mg tablet 25 mg PO DAILY #90 tab 04/12/19 12/31/19 Rx cholecalciferol (vitamin D3) 25 1,000 units PO DAILY #30 cap 07/26/19 12/31/19 Rx mcg (1,000 unit) capsule hydralazine 25 mg tablet 25 mg PO Q8H #90 tab 07/26/19 12/31/19 Rx multivitamin 1 cap PO DAILY #30 cap 07/26/19 12/31/19 Rx omega-3 fatty acids 1,000 mg 1,000 mg PO BID #30 cap 07/26/19 12/31/19 Rx capsule vit C-vit J-bzzidl-uwrq ox-lutein 1 cap PO BID #30 cap 07/26/19 12/31/19 Rx 226 mg-200 unit-5 mg-0.8 mg capsule escitalopram oxalate 10 mg tablet 10 mg PO DAILY #30 tab 09/13/19 12/31/19 Rx atenolol 100 mg tablet 100 mg PO DAILY #30 tab 12/13/19 12/31/19 Rx cyclobenzaprine 10 mg tablet 10 mg PO TID PRN #14 tab 12/28/19 12/31/19 Rx prednisone 50 mg tablet 50 mg PO DAILY #5 tab 12/28/19 12/31/19 Rx tramadol 50 mg tablet See Rx Instructions PO Q6H PRN #16 03/10/20 03/13/20 Rx tab aspirin 81 mg PO HS 12/31/19 12/31/19 History simvastatin 20 mg PO HS 12/31/19 12/31/19 History Patient History Medical History Chronic kidney disease, stage III (moderate) (Acute) Depression (Chronic) HTN (hypertension), benign (Chronic) Hyperlipidemia (Chronic) Vitamin D deficiency Surgical History No history of previous surgery Family History Denies family history of Ovarian cancer Prostate cancer Myocardial infarction Breast cancer Colorectal cancer Social History Preferred Language: Bulgarian Communication Ability: Effective Visual Impairment: No Limitations Hearing Ability: Normal 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 Beliefs That Will Affect Care: None marital status: Current Living Situation: Spouse current occupational status: retired Other Information That Helps Us Care for You: No Feels Safe at Home: Yes Safety Concerns: Feels Safe At This Time Smoking Status: Never smoker Do You Dip or Chew Tobacco: No ; Second Hand Exposure: No ; Tobacco Cessation Education Requested by Patient: No Hx Alcohol Use: No Hx Substance Use: No caffeine: Yes Dental Care, Regularly: No Physical Activity Frequency: Does not Exercise Seatbelt Use: always Sunscreen Use: No Physical Exam Skin: dressings removed and still some dried blood present over the toe - other lockwood area is healing well, no expressible abscess present a this time and new dressings reapplied consisting of adaptic / gauze/ roll gauze/ and Coban Results & Data Vital Signs (Past 12 Hours) Vital Signs Temp Pulse Pulse Resp BP Pulse Ox 01/06/20 07:33 60 01/06/20 07:06 36.7 C 62 18 154/83 H 95 01/06/20 03:33 36.6 C 66 20 156/78 H 91 01/06/20 01:43 67 01/05/20 23:44 36.4 C L 67 18 158/81 H 94
[2020-01-06] MEDS: OXYCODONE HCL IR 5 MG TAB (IMMEDIATE RELEASE) PO PRN (11:31)
[2020-01-06] MEDS ORDERED: LORazepam 1 MG/2 ML VIAL IV PRN (11:40)
--- NOTE | 2020-01-06 11:50 | Infectious Disease Progress Nt ---
Date of Service January 06, 2020 Assessment & Plan (1) Gram positive sepsis: continue dapto, repeat cultures x 2 pending, follow resutls. ? toe as source, now s/p I&D, no cultures sent. Regardless, will need 6 weeks IV abx min, hold picc as cultures remain +. Admission and Anticipated Discharge Date Admission Date: December 31, 2019 Subjective pt seen in f/u, remains on dapto, tolerating well. creat 1.9, s/p podiatry bedside I&D prulent drainage noted, no culture done, dressing intact. 01/04 blood cultures pending, was unable to tolerate MRI. wbc 13.8. pt is lethargic but appropriate on exam. right arm in sling, no pain, no fevers. Review of Systems Review of Systems: All systems reviewed & are unremarkable except as noted in HPI & below Physical Exam Constitutional: WD/WN, vitals as above Eyes: PERRL, conjunctivae normal, anicteric sclerae ENMT: external ear and nose normal, oropharynx normal Neck: normal visual inspection Respiratory: normal respiratory effort, lungs clear to auscultation Cardiovascular: RRR, no murmur, no edema Gastrointestinal (Abdomen): normal bowel sounds, soft, nontender, no hepatosplenomegaly Musculoskeletal: no cyanosis or clubbing, extremities motor strength 5/5 Skin: no rashes, warm and dry + wound (first toe dressing intact, + erythema 2nd toe) Psychiatric: A+Ox3, euthymic affect Results & Data ([facility]) Vital Signs (Past 12 Hours) Vital Signs Temp Pulse Pulse Resp BP Pulse Ox 01/06/20 07:33 60 01/06/20 07:06 36.7 C 62 18 154/83 H 95 01/06/20 03:33 36.6 C 66 20 156/78 H 91 01/06/20 01:43 67 Laboratory Results Microbiology 01/05/20 14:46 Blood Aerobic Blood Culture - Preliminary Gram positive cocci 01/05/20 15:35 Skin MRSA Surveillance Culture - Preliminary No Methicillin Resistant Staph Aureus isolated to date. ---Surveillance culture only--- 01/04/20 07:50 Blood Aerobic Blood Culture - Preliminary Staphylococcus aureus 01/04/20 07:50 Blood Anaerobic Blood Culture - Preliminary No growth in Anaerobic bottle after 48 hours. 01/04/20 07:53 Blood Aerobic Blood Culture - Preliminary Staphylococcus aureus 01/04/20 07:53 Blood Anaerobic Blood Culture - Final 12/31/19 12:47 Blood Aerobic Blood Culture - Final Staphylococcus aureus 12/31/19 12:47 Blood Anaerobic Blood Culture - Final 12/31/19 12:23 Blood Aerobic Blood Culture - Final Staphylococcus aureus 12/31/19 12:23 Blood Anaerobic Blood Culture - Final No growth in Anaerobic bottle after 5 days. 01/02/20 14:17 Blood Aerobic Blood Culture - Preliminary Staphylococcus aureus 01/02/20 14:17 Blood Anaerobic Blood Culture - Preliminary No growth in Anaerobic bottle after 48 hours. 01/02/20 14:18 Blood Aerobic Blood Culture - Preliminary No growth in Aerobic bottle after 48 hours. 01/02/20 14:18 Blood Anaerobic Blood Culture - Preliminary No growth in Anaerobic bottle after 48 hours. 01/01/20 11:50 Blood Aerobic Blood Culture - Preliminary Staphylococcus aureus 01/01/20 11:50 Blood Anaerobic Blood Culture - Preliminary No growth in Anaerobic bottle after 48 hours. 01/01/20 11:41 Blood Aerobic Blood Culture - Preliminary Staphylococcus aureus 01/01/20 11:41 Blood Anaerobic Blood Culture - Preliminary No growth in Anaerobic bottle after 48 hours. 12/31/19 13:10 Urine,Clean Catch Urine Culture - Final Staphylococcus aureus PG Care Time/CCT Total # of Minutes Spent Total Time Spent with Patient: Total time spent is greater than 50% in coordination of care (as documented) at patient's floor/unit and/or counseling patient: Coding Level of Care Code 59876 Subseq Hosp Care Lvl 3 Diagnoses Gram positive sepsis A41.89
[2020-01-06] MEDS: ENOXAPARIN INJ 40 MG/0.4 ML SYR SQ SCH (14:05)
[2020-01-06] MEDS: DAPTOmycin 450 MG in SYRINGE 0 ML IV SCH (16:28)
--- NOTE | 2020-01-06 18:23 | Hospitalist Progress Note ---
Date of Service January 06, 2020 Assessment & Plan (1) Bacteremia due to methicillin susceptible Staphylococcus aureus (MSSA): Continue daptomycin as per ID recommendations Very unclear history from patient and his . Unfortunately unable to get through MRI thoracic spine yesterday as patient unable to tolerate positioning. Will try again today with Ativan Appreciate Dr Miller management with ingrowing toe nail removed and purulent fluid removed after this. No prosthetic joints or grafts as per his . Continues to have persistent blood cultures positive, will repeat with AM labs. (2) Cellulitis: Continue daptomycin as above. Purulent fluid drained 01/04. (3) Infective endocarditis: Still possible but less convincing septic emboli. Erythema on his left forearm significantly improved with decreased swelling. TTE negative for vegetation; mitral valve normal in structure and function, significant mitral regurgitation is absent. Suggest 6 weeks of antibiotics for this patient from negative BC regardless of BASIA results therefore only change in management would be surgery and would need to rule out all other sources first. I do not feel a BASIA is warranted until blood cultures after toe has been drained if these remain positive. (4) Bacteriuria: MSSA as above - most likely not source given prior UA 12/24 normal. (5) Closed fracture of one or more phalanges of left foot: Unclear traumatic event. Possibly crowbar incident with unspecified time frame as per patient. says he goes into the garage all the time and she wouldn't know. Defer to podiatry for immobilization and management once infection controlled. (6) Dpkhj-dh-ipmkxok kidney injury: BUN and Cr continues to rise. Suspect still due to dehydration since he was incorrectly kept NPO for half of yesterday despite no order entered to do this, in addition to lisinopril and HCTZ given on 01/03 for hypertension (now on hold). LR 125ml/hr started today. Alternatively possible AIN related with nafcillin use earlier in admission. UA/micro +/- culture ordered. (7) Back pain: MRI lumbar spine negative for discitis/osteomyelitis. Now having T8/9 midline tenderness on exam. MRI thoracic spine ordered as above to r/o discitis. Suspected secondary to generalized myalgias from MSSA bacteremia. Total CK on admission normal. Moderate spinal stenosis at L3-4 unlikely contributory. Suspect a lot of his pain if generalized anasarca from hypoalbuminemia and recent steroid use. (8) Weakness: Suspect secondary to infection alone. (9) Left shoulder pain: XR negative for # Appreciate ortho assessment - suspected impingement syndrome, agree steroids currently contraindicated CT head negative. Possible need for MRI brain at some point given difficulty in examining patient to r/o CVA or septic emboli. (10) Left upper extremity swelling: Secondary to hypoalbuminemia and immobility of this arm. Improving in left arm sling. US venous doppler negative for DVT Elevate as much as possible to reduce swelling. (11) Thrombocytopenia: Now resolved. Mildly decreased in setting of MSSA bacteremia not concerning. (12) HTN (hypertension), benign: Continue home atenolol 100mg daily and hydralazine 25mg TID. Added amlodipine given continued elevated blood pressure. Unfortunately renal function unable to tolerate HCTZ to also help with swelling, lisinopril also on hold given elevation in BMP today. (13) Hyperlipidemia: Holding simvastatin while on daptomycin (14) Depression: Continue home escitalopram (15) Vitamin D deficiency: Continue home cholecalciferol 1000 units daily (16) DVT prophylaxis: Lovenox 40mg SQ daily Admission and Anticipated Discharge Date Admission Date: December 31, 2019 Subjective Patient reports ongoing thoracic back pain as his main complaint. Swears and curses at any movement. Denies any abdominal or chest pain. No shortness of breath, nausea, vomiting, constipation or diarrhea. Review of Systems Review of Systems: All systems reviewed & are unremarkable except as noted in HPI & below Physical Exam Constitutional: + ill appearing; + not well nourished and no acute distress Eyes: + anicteric sclerae; normal pupil size ENMT: external ear and nose normal, oropharynx normal Neck: trachea midline Respiratory: normal respiratory effort, lungs clear to auscultation Cardiovascular: Rate/Rhythm: regular rate and regular rhythm Heart Sounds: no murmur Vessels: no JVD Extremities: normal capillary refill, + pedal edema (1+ equal b/l up to knees) and + edema (LUE edema mild improvement 1+); no calf tenderness Gastrointestinal (Abdomen): Inspection/Auscultation: abdomen normal to inspection and normal bowel sounds Percussion/Palpation: abdomen soft; abdomen nontender, no guarding and abdomen not rigid Musculoskeletal: Continued midline thoracic pain around T8/9 Skin: No cellulitis surrounding dressings on left 1st toe. Stable dark erythema on 2nd toes on left and right foot. 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/l, full exam limited due to swelling and compliance) Motor/Sensory: no tremor Psychiatric: Orientation: alert and oriented x 3 Genitourinary: no CVA tenderness Results & Data ([facility]) Vital Signs (Past 12 Hours) Vital Signs Temp Pulse Pulse Resp BP Pulse Ox 01/06/20 17:54 63 01/06/20 15:47 36.6 C 96 H 18 152/68 H 91 01/06/20 07:33 60 01/06/20 07:06 36.7 C 62 18 154/83 H 95 PG Care Time/CCT Total # of Minutes Spent Total Time Spent with Patient: Total time spent is greater than 50% in coordination of care (as documented) at patient's floor/unit and/or counseling patient: Coding Level of Care Code 63968 Subseq Hosp Care Lvl 3 Diagnoses Bacteremia due to methicillin susceptible Staphylococcus aureus (MSSA) R78.81; B95.61 Cellulitis L03.114 Laterality: left Site of cellulitis: extremity Site of cellulitis of extremity: upper extremity Infective endocarditis I33.0 Chronicity: acute Infective endocarditis organism: bacterial Bacteriuria R82.71 Closed fracture of one or more phalanges of left foot S92.402A Encounter type: initial encounter Fracture alignment: displaced Phalanx: unspecified phalanx Toe: great toe Gglsm-nd-jsygoyo kidney injury N17.9; N18.3 Acute renal failure type: unspecified Chronic kidney disease stage: stage 3 (moderate) Back pain M54.5 Back pain laterality: right Back pain location: low back pain Chronicity: acute Sciatica presence: without sciatica Weakness R53.1 Left shoulder pain M25.512 Chronicity: acute Left upper extremity swelling M79.89 Thrombocytopenia D69.6 HTN (hypertension), benign I10 Hyperlipidemia E78.2 Hyperlipidemia type: mixed hyperlipidemia Depression F32.9 Depression Type: unspecified Vitamin D deficiency E55.9 DVT prophylaxis Z29.9 (1) Infective endocarditis Chronicity: acute Infective endocarditis organism: bacterial Qualified Code(s): I33.0 - Acute and subacute infective endocarditis (2) Back pain Back pain laterality: right Back pain location: low back pain Chronicity: acute Sciatica presence: without sciatica Qualified Code(s): M54.5 - Low back pain (3) Cellulitis Laterality: left Site of cellulitis: extremity Site of cellulitis of extremity: upper extremity Qualified Code(s): L03.114 - Cellulitis of left up per limb (4) Closed fracture of one or more phalanges of left foot Encounter type: initial encounter Fracture alignment: displaced Phalanx: unspecified phalanx Toe: great toe Qualified Code(s): S92.402A - Displaced unspecified fracture of left great toe, initial encounter for closed fracture (5) Depression Depression Type: unspecified Qualified Code(s): F32.9 - Major depressive disorder, single episode, unspecified (6) Hyperlipidemia Hyperlipidemia type: mixed hyperlipidemia Qualified Code(s): E78.2 - Mixed hyperlipidemia (7) Left shoulder pain Chronicity: acute Qualified Code(s): M25.512 - Pain in left shoulder (8) Gcpxn-cn-ybudesb kidney injury Acute renal failure type: unspecified Chronic kidney disease stage: stage 3 (moderate) Qualified Code(s): N17.9 - Acute kidney failure, unspecified; N18.3 - Chronic kidney disease, stage 3 (moderate)
[2020-01-06] MEDS: MoRPHine SULFATE 4 MG/ML 1 ML CARP\\VIAL IV PRN (20:10)
[2020-01-06] MEDS ORDERED: LORazepam 1 MG/2 ML VIAL IV STA (20:25)
[2020-01-06] MEDS ORDERED: HYDROmorphone INJ 1 MG/ML SYRINGE IV STA (20:26)
[2020-01-06] MEDS: LORazepam 2 MG/4 ML VIAL ONE ×2 (20:40→21:19)
[2020-01-06] MEDS ORDERED: GADOBUTROL 65ML VIAL IV PRN (21:00)
--- NOTE | 2020-01-06 21:16 | Magnetic Resonance Report ---
MR thoracic spine wo/w con CLINICAL HISTORY: T9/10 pain, MSSA bacteremia ?discitis COMPARISON STUDY: None FINDINGS: The examination is degraded by motion artifact. Images were acquired in the sagittal axial planes, be fore and after administration of 10 cc of intravenous Gadavist. There are no suspicious areas of marrow replacement. There is mild nonspecific T6 and T7 vertebral memo dy marrow edema without corresponding signal abnormality on T1-weighted images. No intrinsic cord lesions are visualized. There are no findings to indicate an epidural abscess. There are no pathologically enhancing masses. There are bilateral pleural effusions right larger than left. IMPRESSION: 1. Motion degraded study 2. Minor nonspecific T6 and T7 vertebral body marrow edema without corresponding signal abnormality o n T1-weighted images 3. No current evidence of discitis or osteomyelitis 4. No evidence of epidural abscess 5. Bilateral pleural effusions right greater than left ACT 112: Negative or not required by law. Electronically signed by: Rd Us M.D. 01/06/2020 9:15 PM
[2020-01-06] MEDS: ASPIRIN 81 MG ECTAB PO SCH (22:02)
[2020-01-07] MEDS: LACTATED RINGER'S 1,000 ML IV SCH ×2 (03:08→07:25)
[2020-01-07] MEDS ORDERED: SODIUM CHLORIDE 0.9% 250 ML IV PRN ×2 (06:09→19:11)
[2020-01-07 06:32] LABS: Basophils # (auto) 0.02 K/uL (0-0.2); Basophils % (auto) 0.1 %; Eosinophils # (auto) 0.05 K/uL (0-0.5); Eosinophils % (auto) 0.3 %; Hematocrit (blood only) 29.5 % (42-52); Immature Granulocytes # (auto) 0.23 K/uL (0.00-0.02); Immature Granulocytes % (auto) 1.2 %; Lymphocytes # (auto) 1.21 K/uL (1.2-3.4); Lymphocytes % (auto) 6.4 %; Mean Corpuscular Hgb Conc 33.9 g/dL (32-36); Mean Corpuscular Volume 91.3 fL (80-100); Mean Platelet Volume 12.9 fL (7.4-10.4); Neutrophils # (auto) 15.79 K/uL (1.4-6.5); Platelet Count 239 K/uL (130-400); RDW Coefficient of Variation 16.3 % (11.5-14.5); RDW Standard Deviation 54.2 fL (36.4-46.3); Red Blood Count 3.23 M/uL (4.7-6.1)
[2020-01-07 06:38] LABS: Albumin Globulin Ratio 0.4 (0.9-2); Albumin Level 1.2 gm/dl (3.4-5.0); BUN Creatinine Ratio 35.3 (10-20); Bilirubin,Total 1.1 mg/dl (0.2-1); C Reactive Protein 15.3 mg/dl (0-0.29); Calcium 7.3 mg/dl (8.5-10.1); Creatinine Clr Calc Pharmacy 23.5 ml/min; Est GFR (African American) 22.1; Est GFR (Non-African American) 19.1; Globulin 3.4 gm/dl (2.5-4.0); Total Protein 4.6 gm/dl (6.4-8.2)
--- NOTE | 2020-01-07 07:55 | XRay Report ---
XR chest 1V portable CLINICAL HISTORY: pleural effusions ?pulmonary edema dyspnea COMPARISON STUDY: 12/31/2019 FINDINGS: Stable cardiomegaly. Slight increase in prominence of the pulmonary vasculature. Per small right pleural effusion. IMPRESSION: Mildly progressive components of congestive failure. ACT 112: Negative or not required by law. The above report was generated using voice recognition software. It may contain grammatical, syntax or spelling errors. Electronically signed by: Khoi Davidson M.D. 01/07/2020 7:53 AM
[2020-01-07] MEDS ORDERED: SODIUM CHLORIDE 0.9% 1000ML 1,000 ML IV ONE (08:13)
[2020-01-07] MEDS ORDERED: NO NSAIDS SCH (08:13)
[2020-01-07] MEDS ORDERED: ICU PROTOCOL FOR HYPERGLYCEMIA PRN (08:13)
[2020-01-07] MEDS: PANTOprazole 40 MG in DEXTROSE 5% 100 ML IV SCH ×4 (08:27→22:45)
[2020-01-07] MEDS ORDERED: cefTRIAXone SODIUM 2,000 MG in DEXTROSE 5% 50 ML IV STA (08:29)
--- NOTE | 2020-01-07 08:29 | Critical Care Consultation ---
Date of Consultation January 07, 2020 Assessment & Plan (1) Acute GI hemorrhage: Mingo Basurto is a 84y/o M who was transferred to the ICU following drop in Hgb from 13.0 to 10.0, and visibly bloody stools this AM. Neuro: - [facility] ICU: positive - unable to follow commands, lethargic and not oriented on presentation to the ICU - patient previously had a high baseline of function prior to admission - Palliative consulted Cardiac/Vascular: - history of hypertension, and hyperlipidemia - Cardiology consulted - TTE 01/01 demonstrated grossly normal LV size, normal LV systolic function, EF 50-55%, borderline global hypokinesis of the LV, moderate concentric LVH, and diastolic dysfunction - holding oral home regimen - for HTN 10mg labetalol PRN, and 10mg hydralazine PRN available Respiratory: - maintaining sats >92% on room air - CT abd/pelvis demonstrated small right and trace left pleural effusions - CXR mildly progressive components of congestive failure GI/Nutrition: - NPO - Protonix Q5h - GI consulted - CT Abdomen: demonstrated no acute findings within the abdomen or pelvis, and no retroperitoneal hematoma - NM GI Scan: demonstrated no active GI bleed Renal/Lytes: - no significant electrolyte abnormalities - Cr increasing this AM, up to 3.02 from baseline of 1.4 : - urinary output 800 over last 24hrs ENDO: - no history of T2DM HEME: - Hgb dropped from 13 to 10 overnight, with continued trend down 7.6 on last check - typed and crossed; transfused 1 unit PRBCs at 1900 - no active source for GI blood loss, however recent history of prednisone and tramadol usage ID: - 01/03 blood cultures demonstrated MSSA - 01/06 blood cultures pending - continue Daptomycin, and continue Rocephin Lines/IV Access: - Peripheral IVs DVT Prophylaxis: - SQ Lovenox Supervising Physician Co-Signing Physician Notes Dr. Landry was resident physician during care of patient. I separately evaluated patient for pollard portions of the history and the exam. I was present during the critical portion of medical decision making, and I discussed the case with the resident. I generally agree with the findings and plan. Patient presented early in the morning with acute GI bleed. Patient was asked discussed on multidisciplinary rounds, received tagged red blood cell scan. Additionally the patient has been persistently bacteremic with unclear source at this time. Patient has worsening encephalopathy. Patient's presented to the bedside, I discussed the current status, prognosis, treatment plans and patient's long-term wishes with his , son Emiliano via telephone, and the palliative care service. Patient has stage III chronic kidney disease and recently has experienced acute worsening. Patient's son and were all in agreement that the patient would not want aggressive/heroic resuscitative efforts made in event of cardiac arrest. They also felt he would not want any form of renal replacement therapy. I reviewed the gastroenterology recommendations. At this time the patient is in multisystem organ failure with persistent bacteremia. Family did not want invasive testing, we discussed the possibility of endocarditis and if this was the case he would not likely be a candidate for valve replacement therapy and would require extended antibiotic therapy. It was noted the patient was extremely independent and if he was not able to live at home and essentially have a high function of being able to cut his grass he would not want heroic life-sustaining measures continued. Clinical update 1829 repeating the patient's labs the patient continues to lose blood, his blood type is O- which may have some difficulty obtaining adequate blood supply should he have ongoing losses. Additionally his creatinine continu es to climb and he has not produced urine for several hours. I contacted the patient's and recommended she return along with her sons we have additional discussions regarding goals of care given the worsening kidney function and ongoing blood losses. It is also noted that this is occurring in the setting of a persistent bacteremia. I had previously discussed the case with Dr. Weaver of podiatry who did not feel the year was a likely source in the great toe, additionally toe amputation was not indicated at the present time. Considering amputation of a great toe and the patient's independence functional limitations through amputations would not be in line with the patient's long-term wishes. At this time I am anticipating a family discussion when family arrives at the bedside, we have made accommodations to have the family present given visitor restriction in the setting of COVID-19 pandemic. I have personally spent 95 minutes of critical care time in the direct management of this patient. This is a life/limb threatening event. This includes time spent evaluating patient, direct bedside care, chart review, placing orders, interpretation of diagnostic studies, discussion with consultants, patient, and/or family members regarding treatment decisions, as well as other required patient management activities. This time is exclusive of all separately billable procedures, and teaching time and separate from and in addition to any other critical care service time. History of Present Illness Attending Physician: Radames Fong MD History of Present Illness Mingo Basurto is an 84y/o M with past medical history of HTN, depression, CKD stage III; originally presented to the hospital on 12/24 with abdominal pain, at that time had a CT that did not demonstrate any concern for abdominal process given a 5 day course of prednisone, tramadol, and cyclobenzaprine. Re-presented to the hospital on 12/30,with concern of continued abdominal pain and progressing back pain. Additionally, had the question possible cellulitis of left toe, with MSSA present in his blood cultures. Patient was initially on medical floor receiving antibiotics; however overnight developed kimberley melena with a decline in his hemoglobin, and was subsequently transferred to the ICU Allergies Allergy/AdvReac Type Severity Reaction Status Date / Time Penicillins Allergy Unknown Unknown Verified 01/06/20 07:44 Sulfa (Sulfonamide Allergy Unknown Unknown Verified 01/06/20 07:44 Antibiotics) Home Medications Home Medications Medication Instructions Recorded Confirmed Type hydrochlorothiazide 25 mg tablet 25 mg PO DAILY #90 tab 04/12/19 12/31/19 Rx cholecalciferol (vitamin D3) 25 1,000 units PO DAILY #30 cap 07/26/19 12/31/19 Rx mcg (1,000 unit) capsule hydralazine 25 mg tablet 25 mg PO Q8H #90 tab 07/26/19 12/31/19 Rx multivitamin 1 cap PO DAILY #30 cap 07/26/19 12/31/19 Rx omega-3 fatty acids 1,000 mg 1,000 mg PO BID #30 cap 07/26/19 12/31/19 Rx capsule vit C-vit [id number] ox-lutein 1 cap PO BID #30 cap 07/26/19 12/31/19 Rx 226 mg-200 unit-5 mg-0.8 mg capsule escitalopram oxalate 10 mg tablet 10 mg PO DAILY #30 tab 09/13/19 12/31/19 Rx atenolol 100 mg tablet 100 mg PO DAILY #30 tab 12/13/19 12/31/19 Rx cyclobenzaprine 10 mg tablet 10 mg PO TID PRN #14 tab 12/28/19 12/31/19 Rx prednisone 50 mg tablet 50 mg PO DAILY #5 tab 12/28/19 12/31/19 Rx tramadol 50 mg tablet See Rx Instructions PO Q6H PRN #16 12/28/19 12/31/19 Rx tab aspirin 81 mg PO HS 12/31/19 12/31/19 History simvastatin 20 mg PO HS 12/31/19 12/31/19 History Patient History Medical History Chronic kidney disease, stage III (moderate) (Acute) Depression (Chronic) HTN (hypertension), benign (Chronic) Hyperlipidemia (Chronic) Vitamin D deficiency Surgical History No history of previous surgery Family History Denies family history of Ovarian cancer Prostate cancer Myocardial infarction Breast cancer Colorectal cancer Social History Preferred Language: [place] Communication Ability: Effective Visual Impairment: No Limitations 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 Beliefs That Will Affect Care: None marital status: Current Living Situation: Spouse current occupational status: retired Feels Safe at Home: Yes Smoking Status: Never smoker Second Hand Exposure: No ; Hx Alcohol Use: No Hx Substance Use: No caffeine: Yes Dental Care, Regularly: No Physical Activity Frequency: Does not Exercise Seatbelt Use: always Sunscreen Use: No Review of Systems Review of Systems: All systems reviewed & are unremarkable except as noted in HPI & below Physical Exam Constitutional: WD/WN, vitals as above Eyes: PERRL, conjunctivae normal, anicteric sclerae ENMT: external ear and nose normal, oropharynx normal Neck: normal visual inspection Respiratory: normal respiratory effort, lungs clear to auscultation Cardiovascular: Rate/Rhythm: regular rate and regular rhythm Heart Sounds: normal S1 and normal S2; no gallop, no murmur and no cardiac rub Vessels: no JVD Extremities: no pedal edema Gastrointestinal (Abdomen): normal bowel sounds, soft, nontender, no hepatosplenomegaly kimberley melena in stools Musculoskeletal: no cyanosis or clubbing, extremities motor strength 5/5 Skin: + ecchymosis (2x2cm over abdomen) erythematous L great toe, and 2nd digit Neurologic: patellar DTR's 2+ bilat, sensation intact Psychiatric: lethargic, unintelligible responses to questions Lymphatic: no cervical or axillary lymphadenopathy Results & Data Vital Signs (Past 12 Hours) Vital Signs Temp Pulse Pulse Resp BP Pulse Ox 01/07/20 07:17 37.1 C 75 16 120/63 93 01/07/20 06:43 118/58 L 01/07/20 06:12 36.5 C 76 18 130/72 93 01/07/20 03:25 36.5 C 74 20 127/67 94 01/07/20 02:07 70 01/06/20 23:09 36.4 C L 66 21 161/72 H 94 Laboratory Results 01/07/20 01/07/20 01/07/20 Range/Units 18:36 18:35 17:28 WBC 19.48 H (4.8-10.8) K/uL RBC 2.45 L (4.7-6.1) M/uL Hgb 7.6 L (14.0-18.0) g/dL Hct 22.6 L (42-52) % MCV 92.2 (80-100) fL MCH 31.0 (25-34) pg MCHC Pending (32-36) g/dL RDW Std Deviation 54.2 H (36.4-46.3) fL RDW Coeff of Alize 16.1 H (11.5-14.5) % Plt Count 226 (130-400) K/uL MPV 12.2 H (7.4-10.4) fL Immature Gran % (Auto) % Neut % (Auto) % Lymph % (Auto) % [place] % (Auto) % Eos % (Auto) % Baso % (Auto) % Immature Gran # (Auto) (0.00-0.02) K/uL Neut # (Auto) (1.4-6.5) K/uL Lymph # (Auto) (1.2-3.4) K/uL [place] # (Auto) (0.11-0.59) K/uL Eos # (Auto) (0-0.5) K/uL Baso # (Auto) (0-0.2) K/uL ESR (0-14) mm/hr Haptoglobin PT (9.0-12.0) Seconds INR (0.9-1.1) APTT (21.0-31.0) Seconds PTT Ratio Fibrinogen (184-400) mg/dl Fibrin Degrad Products (<10) mcg/ml D-Dimer (0-500) ug/L FEU Sodium 140 (136-145) mmol/L Potassium 4.6 (3.5-5.1) mmol/L Chloride 108 H (98-107) mmol/L Carbon Dioxide 24 (21-32) mmol/L Anion Gap 9.0 (3-11) BUN 117 H (7-18) mg/dl Creatinine 3.43 H D (0.6-1.4) mg/dl Est Cr Clr Drug Dosing 20.2 ml/min Est GFR ( Amer) 18.2 Est GFR (Non-Af Amer) 15.7 BUN/Creatinine Ratio 34.0 H (10-20) Glucose 133 H (70-99) mg/dl POC Glucose 134 H (70-99) mg/dl Calcium 7.2 L (8.5-10.1) mg/dl Phosphorus 6.6 H (2.5-4.9) mg/dl Magnesium 3.1 H (1.8-2.4) mg/dl Total Bilirubin (0.2-1) mg/dl AST (15-37) U/L ALT (12-78) U/L Alkaline Phosphatase (45-117) U/L Lactate Dehydrogenase (87-241) U/L C-Reactive Protein (0-0.29) mg/dl Total Protein (6.4-8.2) gm/dl Albumin (3.4-5.0) gm/dl Globulin (2.5-4.0) gm/dl Albumin/Globulin Ratio (0.9-2) Urine Color Urine Appearance (Clear) Urine pH (4.5-7.5) Ur Specific [place] (1.000-1.030) Urine Protein (Negative) Urine Glucose (UA) (Negative) Urine Ketones (Negative) Urine Blood (Negative) Urine Nitrite (Negative) Urine Bilirubin (Negative) Urine Urobilinogen (Negative) Ur Leukocyte Esterase (Negative) Urine WBC (Auto) (0-5) /hpf Urine RBC (Auto) (0-4) /hpf U Hyaline Cast (Auto) (0-5) /lpf U Epithel Cells (Auto) (0-5) /lpf Urine Bacteria (Auto) (Negative) Ur Renal Epithelial Cell (0-5) /lpf Granular Casts (0) /lpf Urine Yeast (None Prsent) Nasal Screen MRSA (PCR) (Negative) Blood Type Blood Type Recheck Antibody Screen Crossmatch 01/07/20 01/07/20 01/07/20 Range/Units 15:42 11:58 09:00 WBC (4.8-10.8) K/uL RBC (4.7-6.1) M/uL Hgb 8.8 L 9.0 L (14.0-18.0) g/dL Hct 26.1 L 27.0 L (42-52) % MCV (80-100) fL MCH (25-34) pg MCHC (32-36) g/dL RDW Std Deviation (36.4-46.3) fL RDW Coeff of Alize (11.5-14.5) % Plt Count (130-400) K/uL MPV (7.4-10.4) fL Immature Gran % (Auto) % Neut % (Auto) % Lymph % (Auto) % [place] % (Auto) % Eos % (Auto) % Baso % (Auto) % Immature Gran # (Auto) (0.00-0.02) K/uL Neut # (Auto) (1.4-6.5) K/uL Lymph # (Auto) (1.2-3.4) K/uL [place] # (Auto) (0.11-0.59) K/uL Eos # (Auto) (0-0.5) K/uL Baso # (Auto) (0-0.2) K/uL ESR (0-14) mm/hr Haptoglobin PT (9.0-12.0) Seconds INR (0.9-1.1) APTT (21.0-31.0) Seconds PTT Ratio Fibrinogen (184-400) mg/dl Fibrin Degrad Products (<10) mcg/ml D-Dimer (0-500) ug/L FEU Sodium (136-145) mmol/L Potassium (3.5-5.1) mmol/L Chloride (98-107) mmol/L Carbon Dioxide (21-32) mmol/L Anion Gap (3-11) BUN (7-18) mg/dl Creatinine (0.6-1.4) mg/dl Est Cr Clr Drug Dosing ml/min Est GFR ( Amer) Est GFR (Non-Af Amer) BUN/Creatinine Ratio (10-20) Glucose (70-99) mg/dl POC Glucose (70-99) mg/dl Calcium (8.5-10.1) mg/dl Phosphorus (2.5-4.9) mg/dl Magnesium (1.8-2.4) mg/dl Total Bilirubin (0.2-1) mg/dl AST (15-37) U/L ALT (12-78) U/L Alkaline Phosphatase (45-117) U/L Lactate Dehydrogenase (87-241) U/L C-Reactive Protein (0-0.29) mg/dl Total Protein (6.4-8.2) gm/dl Albumin (3.4-5.0) gm/dl Globulin (2.5-4.0) gm/dl Albumin/Globulin Ratio (0.9-2) Urine Color Dark Yellow Urine Appearance Turbid A (Clear) Urine pH 5.0 (4.5-7.5) Ur Specific [place] 1.026 (1.000-1.030) Urine Protein 1+ H (Negative) Urine Glucose (UA) Negative (Negative) Urine Ketones Trace H (Negative) Urine Blood 3+ H (Negative) Urine Nitrite Negative (Negative) Urine Bilirubin Negative (Negative) Urine Urobilinogen Negative (Negative) Ur Leukocyte Esterase 2+ H (Negative) Urine WBC (Auto) >30 H (0-5) /hpf Urine RBC (Auto) 10-30 H (0-4) /hpf U Hyaline Cast (Auto) 5-10 H (0-5) /lpf U Epithel Cells (Auto) >30 H (0-5) /lpf Urine Bacteria (Auto) Negative (Negative) Ur Renal Epithelial Cell 0-5 (0-5) /lpf Granular Casts 1-5 H (0) /lpf Urine Yeast Budding A (None Prsent) Nasal Screen MRSA (PCR) (Negative) Blood Type Blood Type Recheck Antibody Screen Crossmatch 01/07/20 01/07/20 01/07/20 Range/Units 08:18 08:18 08:18 WBC (4.8-10.8) K/uL RBC (4.7-6.1) M/uL Hgb (14.0-18.0) g/dL Hct (42-52) % MCV (80-100) fL MCH (25-34) pg MCHC (32-36) g/dL RDW Std Deviation (36.4-46.3) fL RDW Coeff of Alize (11.5-14.5) % Plt Count (130-400) K/uL MPV (7.4-10.4) fL Immature Gran % (Auto) % Neut % (Auto) % Lymph % (Auto) % [place] % (Auto) % Eos % (Auto) % Baso % (Auto) % Immature Gran # (Auto) (0.00-0.02) K/uL Neut # (Auto) (1.4-6.5) K/uL Lymph # (Auto) (1.2-3.4) K/uL [place] # (Auto) (0.11-0.59) K/uL Eos # (Auto) (0-0.5) K/uL Baso # (Auto) (0-0.2) K/uL ESR (0-14) mm/hr Haptoglobin Pending PT (9.0-12.0) Seconds INR (0.9-1.1) APTT (21.0-31.0) Seconds PTT Ratio Fibrinogen (184-400) mg/dl Fibrin Degrad Products >40 H (<10) mcg/ml D-Dimer (0-500) ug/L FEU Sodium (136-145) mmol/L Potassium (3.5-5.1) mmol/L Chloride (98-107) mmol/L Carbon Dioxide (21-32) mmol/L Anion Gap (3-11) BUN (7-18) mg/dl Creatinine (0.6-1.4) mg/dl Est Cr Clr Drug Dosing ml/min Est GFR ( Amer) Est GFR (Non-Af Amer) BUN/Creatinine Ratio (10-20) Glucose (70-99) mg/dl POC Glucose (70-99) mg/dl Calcium (8.5-10.1) mg/dl Phosphorus (2.5-4.9) mg/dl Magnesium (1.8-2.4) mg/dl Total Bilirubin (0.2-1) mg/dl AST (15-37) U/L ALT (12-78) U/L Alkaline Phosphatase (45-117) U/L Lactate Dehydrogenase 253 H (87-241) U/L C-Reactive Protein (0-0.29) mg/dl Total Protein (6.4-8.2) gm/dl Albumin (3.4-5.0) gm/dl Globulin (2.5-4.0) gm/dl Albumin/Globulin Ratio (0.9-2) Urine Color Urine Appearance (Clear) Urine pH (4.5-7.5) Ur Specific [place] (1.000-1.030) Urine Protein (Negative) Urine Glucose (UA) (Negative) Urine Ketones (Negative) Urine Blood (Negative) Urine Nitrite (Negative) Urine Bilirubin (Negative) Urine Urobilinogen (Negative) Ur Leukocyte Esterase (Negative) Urine WBC (Auto) (0-5) /hpf Urine RBC (Auto) (0-4) /hpf U Hyaline Cast (Auto) (0-5) /lpf U Epithel Cells (Auto) (0-5) /lpf Urine Bacteria (Auto) (Negative) Ur Renal Epithelial Cell (0-5) /lpf Granular Casts (0) /lpf Urine Yeast (None Prsent) Nasal Screen MRSA (PCR) (Negative) Blood Type Blood Type Recheck Antibody Screen Crossmatch 01/07/20 01/07/20 01/07/20 Range/Units 08:18 08:16 08:16 WBC (4.8-10.8) K/uL RBC (4.7-6.1) M/uL Hgb 9.6 L (14.0-18.0) g/dL Hct 29.0 L (42-52) % MCV (80-100) fL MCH (25-34) pg MCHC (32-36) g/dL RDW Std Deviation (36.4-46.3) fL RDW Coeff of Alize (11.5-14.5) % Plt Count (130-400) K/uL MPV (7.4-10.4) fL Immature Gran % (Auto) % Neut % (Auto) % Lymph % (Auto) % [place] % (Auto) % Eos % (Auto) % Baso % (Auto) % Immature Gran # (Auto) (0.00-0.02) K/uL Neut # (Auto) (1.4-6.5) K/uL Lymph # (Auto) (1.2-3.4) K/uL [place] # (Auto) (0.11-0.59) K/uL Eos # (Auto) (0-0.5) K/uL Baso # (Auto) (0-0.2) K/uL ESR (0-14) mm/hr Haptoglobin PT 14.5 H (9.0-12.0) Seconds INR 1.4 H (0.9-1.1) APTT 30.2 (21.0-31.0) Seconds PTT Ratio 1.1 Fibrinogen 469 H (184-400) mg/dl Fibrin Degrad Products (<10) mcg/ml D-Dimer 7670 H* (0-500) ug/L FEU Sodium 139 (136-145) mmol/L Potassium 4.6 D (3.5-5.1) mmol/L Chloride 108 H (98-107) mmol/L Carbon Dioxide 25 (21-32) mmol/L Anion Gap 7.0 (3-11) BUN 105 H (7-18) mg/dl Creatinine 3.02 H (0.6-1.4) mg/dl Est Cr Clr Drug Dosing 22.7 ml/min Est GFR ( Amer) 21.3 Est GFR (Non-Af Amer) 18.3 BUN/Creatinine Ratio 34.6 H (10-20) Glucose 124 H (70-99) mg/dl POC Glucose (70-99) mg/dl Calcium 7.4 L (8.5-10.1) mg/dl Phosphorus (2.5-4.9) mg/dl Magnesium (1.8-2.4) mg/dl Total Bilirubin 1.0 (0.2-1) mg/dl AST 28 (15-37) U/L ALT 29 (12-78) U/L Alkaline Phosphatase 71 (45-117) U/L Lactate Dehydrogenase (87-241) U/L C-Reactive Protein (0-0.29) mg/dl Total Protein 4.5 L (6.4-8.2) gm/dl Albumin 1.3 L (3.4-5.0) gm/dl Globulin 3.2 (2.5-4.0) gm/dl Albumin/Globulin Ratio 0.4 L (0.9-2) Urine Color Urine Appearance (Clear) Urine pH (4.5-7.5) Ur Specific [place] (1.000-1.030) Urine Protein (Negative) Urine Glucose (UA) (Negative) Urine Ketones (Negative) Urine Blood (Negative) Urine Nitrite (Negative) Urine Bilirubin (Negative) Urine Urobilinogen (Negative) Ur Leukocyte Esterase (Negative) Urine WBC (Auto) (0-5) /hpf Urine RBC (Auto) (0-4) /hpf U Hyaline Cast (Auto) (0-5) /lpf U Epithel Cells (Auto) (0-5) /lpf Urine Bacteria (Auto) (Negative) Ur Renal Epithelial Cell (0-5) /lpf Granular Casts (0) /lpf Urine Yeast (None Prsent) Nasal Screen MRSA (PCR) (Negative) Blood Type Blood Type Recheck Antibody Screen Crossmatch 01/07/20 01/07/20 01/07/20 Range/Units 08:00 06:33 05:41 WBC (4.8-10.8) K/uL RBC (4.7-6.1) M/uL Hgb (14.0-18.0) g/dL Hct (42-52) % MCV (80-100) fL MCH (25-34) pg MCHC (32-36) g/dL RDW Std Deviation (36.4-46.3) fL RDW Coeff of Alize (11.5-14.5) % Plt Count (130-400) K/uL MPV (7.4-10.4) fL Immature Gran % (Auto) % Neut % (Auto) % Lymph % (Auto) % [place] % (Auto) % Eos % (Auto) % Baso % (Auto) % Immature Gran # (Auto) (0.00-0.02) K/uL Neut # (Auto) (1.4-6.5) K/uL Lymph # (Auto) (1.2-3.4) K/uL [place] # (Auto) (0.11-0.59) K/uL Eos # (Auto) (0-0.5) K/uL Baso # (Auto) (0-0.2) K/uL ESR (0-14) mm/hr Haptoglobin PT (9.0-12.0) Seconds INR (0.9-1.1) APTT (21.0-31.0) Seconds PTT Ratio Fibrinogen (184-400) mg/dl Fibrin Degrad Products (<10) mcg/ml D-Dimer (0-500) ug/L FEU Sodium (136-145) mmol/L Potassium (3.5-5.1) mmol/L Chloride (98-107) mmol/L Carbon Dioxide (21-32) mmol/L Anion Gap (3-11) BUN (7-18) mg/dl Creatinine (0.6-1.4) mg/dl Est Cr Clr Drug Dosing ml/min Est GFR ( Amer) Est GFR (Non-Af Amer) BUN/Creatinine Ratio (10-20) Glucose (70-99) mg/dl POC Glucose (70-99) mg/dl Calcium (8.5-10.1) mg/dl Phosphorus (2.5-4.9) mg/dl Magnesium (1.8-2.4) mg/dl Total Bilirubin (0.2-1) mg/dl AST (15-37) U/L ALT (12-78) U/L Alkaline Phosphatase (45-117) U/L Lactate Dehydrogenase (87-241) U/L C-Reactive Protein (0-0.29) mg/dl Total Protein (6.4-8.2) gm/dl Albumin (3.4-5.0) gm/dl Globulin (2.5-4.0) gm/dl Albumin/Globulin Ratio (0.9-2) Urine Color Urine Appearance (Clear) Urine pH (4.5-7.5) Ur Specific [place] (1.000-1.030) Urine Protein (Negative) Urine Glucose (UA) (Negative) Urine Ketones (Negative) Urine Blood (Negative) Urine Nitrite (Negative) Urine Bilirubin (Negative) Urine Urobilinogen (Negative) Ur Leukocyte Esterase (Negative) Urine WBC (Auto) (0-5) /hpf Urine RBC (Auto) (0-4) /hpf U Hyaline Cast (Auto) (0-5) /lpf U Epithel Cells (Auto) (0-5) /lpf Urine Bacteria (Auto) (Negative) Ur Renal Epithelial Cell (0-5) /lpf Granular Casts (0) /lpf Urine Yeast (None Prsent) Nasal Screen MRSA (PCR) Negative (Negative) Blood Type O Negative Blood Type Recheck O Negative Antibody Screen NEGATIVE Crossmatch See Detail 01/07/20 01/07/20 01/07/20 Range/Units 05:41 05:41 05:41 WBC 18.80 H (4.8-10.8) K/uL RBC 3.23 L (4.7-6.1) M/uL Hgb 10.0 L D (14.0-18.0) g/dL Hct 29.5 L (42-52) % MCV 91.3 (80-100) fL MCH 31.0 (25-34) pg MCHC 33.9 (32-36) g/dL RDW Std Deviation 54.2 H (36.4-46.3) fL RDW Coeff of Alize 16.3 H (11.5-14.5) % Plt Count 239 (130-400) K/uL MPV 12.9 H (7.4-10.4) fL Immature Gran % (Auto) 1.2 % Neut % (Auto) 84.0 % Lymph % (Auto) 6.4 % [place] % (Auto) 8.0 % Eos % (Auto) 0.3 % Baso % (Auto) 0.1 % Immature Gran # (Auto) 0.23 H (0.00-0.02) K/uL Neut # (Auto) 15.79 H (1.4-6.5) K/uL Lymph # (Auto) 1.21 (1.2-3.4) K/uL [place] # (Auto) 1.50 H (0.11-0.59) K/uL Eos # (Auto) 0.05 (0-0.5) K/uL Baso # (Auto) 0.02 (0-0.2) K/uL ESR 46 H (0-14) mm/hr Haptoglobin PT (9.0-12.0) Seconds INR (0.9-1.1) APTT (21.0-31.0) Seconds PTT Ratio Fibrinogen (184-400) mg/dl Fibrin Degrad Products (<10) mcg/ml D-Dimer (0-500) ug/L FEU Sodium 138 (136-145) mmol/L Potassium (3.5-5.1) mmol/L Chloride 107 (98-107) mmol/L Carbon Dioxide 24 (21-32) mmol/L Anion Gap 7.0 (3-11) BUN 103 H (7-18) mg/dl Creatinine 2.92 H D (0.6-1.4) mg/dl Est Cr Clr Drug Dosing 23.5 ml/min Est GFR ( Amer) 22.1 Est GFR (Non-Af Amer) 19.1 BUN/Creatinine Ratio 35.3 H (10-20) Glucose 124 H (70-99) mg/dl POC Glucose (70-99) mg/dl Calcium 7.3 L (8.5-10.1) mg/dl Phosphorus (2.5-4.9) mg/dl Magnesium (1.8-2.4) mg/dl Total Bilirubin 1.1 H (0.2-1) mg/dl AST (15-37) U/L ALT 30 (12-78) U/L Alkaline Phosphatase 69 (45-117) U/L Lactate Dehydrogenase (87-241) U/L C-Reactive Protein 15.30 H (0-0.29) mg/dl Total Protein 4.6 L (6.4-8.2) gm/dl Albumin 1.2 L (3.4-5.0) gm/dl Globulin 3.4 (2.5-4.0) gm/dl Albumin/Globulin Ratio 0.4 L (0.9-2) Urine Color Urine Appearance (Clear) Urine pH (4.5-7.5) Ur Specific [place] (1.000-1.030) Urine Protein (Negative) Urine Glucose (UA) (Negative) Urine Ketones (Negative) Urine Blood (Negative) Urine Nitrite (Negative) Urine Bilirubin (Negative) Urine Urobilinogen (Negative) Ur Leukocyte Esterase (Negative) Urine WBC (Auto) (0-5) /hpf Urine RBC (Auto) (0-4) /hpf U Hyaline Cast (Auto) (0-5) /lpf U Epithel Cells (Auto) (0-5) /lpf Urine Bacteria (Auto) (Negative) Ur Renal Epithelial Cell (0-5) /lpf Granular Casts (0) /lpf Urine Yeast (None Prsent) Nasal Screen MRSA (PCR) (Negative) Blood Type Blood Type Recheck Antibody Screen Crossmatch Medications Administered Current Inpatient Medications Acetaminophen (Tylenol) 650 mg PO Q4H PRN PRN Reason: pain/fever Stop: 01/30/20 14:02 Last Admin: 01/04/20 20:17 Dose: 650 mg Documented by: Amlodipine Besylate (Norvasc) 5 mg PO QAM [facility] Stop: 02/04/20 08:59 Last Admin: 01/06/20 08:23 Dose: 5 mg Documented by: Diphenhydramine HCl (Benadryl) 25 mg IV Q4H PRN PRN Reason: Allergy Symptoms Stop: 02/02/20 12:20 Epinephrine HCl (Epinephrine) 0.3 mg SC UD PRN; Protocol PRN Reason: Allergic Reaction Stop: 02/02/20 14:00 Escitalopram Oxalate (Lexapro Tab) 10 mg PO DAILY [facility] Stop: 01/31/20 08:59 Last Admin: 01/07/20 08:53 Dose: Not Given Documented by: Gadobutrol (Gadavist 65ml) 10 ml IV ONCE PRN PRN Reason: Interaction Checking Stop: 01/10/20 20:59 Last Admin: 01/06/20 21:00 Dose: 10 ml Documented by: Hydralazine HCl (Apresoline) 25 mg PO TID [facility] Stop: 02/02/20 08:59 Last Admin: 01/06/20 22:02 Dose: Not Given Documented by: Sodium Chloride (Nss) 250 mls @ 15 mls/hr IV .[id number] PRN PRN Reason: For Transfusion Stop: 01/07/20 16:09 Pantoprazole Sodium 40 mg/ (Dextrose) 100 mls @ 20 mls/hr IV Q5H [facility] Stop: 02/06/20 08:29 Last Admin: 01/07/20 12:07 Dose: 8 mg/hr, 20 mls/hr Documented by: Ceftriaxone Sodium 2,000 mg/ (Dextrose) 70 mls @ 140 mls/hr IV DAILY@0900 [facility]; Protocol Stop: 01/08/20 09:29 Daptomycin 525 mg/ Syringe 10.5 mls @ 5.25 mls/min IV Q2D@0900 [facility]; Protocol Stop: 01/22/20 08:59 Ioversol (Optiray 320 100ml) 94 ml IV ONCE PRN PRN Reason: Interaction Checking Stop: 01/08/20 16:43 Last Admin: 01/04/20 16:44 Dose: 94 ml Documented by: Miscellaneous (Icu Protocol For Hyperglycemia) 1 ea N/A PRN PRN; Protocol PRN Reason: Hyperglycemia Protocol Stop: 01/09/20 08:12 Miscellaneous Information (Consult) 1 ea N/A UD PRN PRN Reason: Consult Stop: 02/03/20 18:24 Miscellaneous Medication (No Nsaids) 1 ea N/A UD KYMBERLY Stop: 02/06/20 08:12 Morphine Sulfate (Morphine Sulfate) 4 mg IV Q4H PRN PRN Reason: Pain Stop: 01/14/20 14:02 Last Admin: 01/06/20 20:10 Dose: 4 mg Documented by: Multivitamins/Minerals (Multivitamin W/ Minerals Tab) 1 tab PO DAILY KYMBERLY Stop: 01/31/20 08:59 Last Admin: 01/07/20 08:53 Dose: Not Given Documented by: Ondansetron HCl (Zofran) 4 mg IV Q4H PRN PRN Reason: Nausea Stop: 01/30/20 14:02 Oxycodone HCl (Roxicodone Immediate Rel) 5 mg PO Q4H PRN PRN Reason: Moderate Pain Stop: 01/17/20 20:46 Last Admin: 01/06/20 11:31 Dose: 5 mg Documented by: Oxycodone HCl (Roxicodone Immediate Rel) 10 mg PO Q4H PRN PRN Reason: Severe Pain Stop: 01/17/20 20:49 Last Admin: 01/05/20 11:48 Dose: 10 mg Documented by: Vitamin D (Vitamin D3) 1,000 units PO DAILY KYMBERLY Stop: 01/31/20 08:59 Last Admin: 01/07/20 08:54 Dose: Not Given Documented by: Resident Activity Tracking Resident Involvement: Resident Care Provided Care Provided: Adult Hospital Medicine
[2020-01-07 08:32] LABS: Hemoglobin 9.6 g/dL (14.0-18.0)
[2020-01-07] MEDS ORDERED: LACTATED RINGER'S 1,000 ML IV ONE (08:48)
[2020-01-07] MEDS: ESCITALOPRAM OXALATE 10 MG TAB PO SCH (08:53)
[2020-01-07] MEDS: CEROVITE ADV FORMULA TAB PO SCH (08:53)
[2020-01-07] MEDS: CHOLECALCIFEROL 1,000 UNITS 25 MCG TAB PO SCH (08:54)
--- NOTE | 2020-01-07 08:58 | CT Scan Report ---
CT OF THE ABDOMEN AND PELVIS WITHOUT CONTRAST CLINICAL HISTORY: Acute kidney injury. Anemia. COMPARISON STUDY: CT of the abdomen and pelvis December 25, 2019. Right upper quadrant ultrasound January 04, 2020. TECHNIQUE: Axial images of the abdomen and pelvis were obtained without IV contrast. Images were revi ewed in the axial, sagittal, and coronal planes. Automated exposure control was utilized for the elsy dy. A dose lowering technique was utilized adhering to the principles of ALARA. FINDINGS: Imaged portions of the lower chest demonstrate small right and trace left pleural effusions with associated atelectasis. No pneumatosis, free air or portal venous gas is present. Evaluation of the abdomen and pelvis is suboptimal on this unenhanced examination. The liver, spleen, adrenal glan ds and pancreas are unremarkable. There is no biliary or pancreatic ductal dilatation. There is hyper dense material within the gallbladder without evidence for acute cholecystitis. This could reflect vi carious excretion of contrast. Hyperdense material within the bilateral collecting systems likely ref lects excreted contrast from recent MRI. There is no hydronephrosis. There are no ureteral calculi. F oley balloon within the bladder is noted which is collapsed. A suspected cyst within the midpole of t he right kidney is noted. There is a smaller suspected cyst. These are suboptimally assessed on this unenhanced exam. There is no evidence for a bowel obstruction. A moderate to large amount stool withi n the rectum is noted. There is evidence for anasarca. No retroperitoneal hematoma is present. There is no hemoperitoneum. Colonic diverticulosis is present without evidence for acute diverticulitis. IMPRESSION: 1. No acute findings within the abdomen or pelvis on unenhanced exam. No retroperitoneal hematoma. 2. Anasarca. Small right and trace left pleural effusions. 3. Moderate to large amount stool within the rectum. 4. No hydronephrosis. ACT 112: Negative or not required by law. Electronically signed by: Darrell Lucas M.D. 01/07/2020 8:57 AM
--- NOTE | 2020-01-07 09:00 | Infectious Disease Progress Nt ---
Date of Service January 07, 2020 Assessment & Plan (1) Gram positive sepsis: continue dapto, repeat cultures x 2 pending, follow resutls. ? toe as source, now s/p I&D, no cultures sent. may need additional OR. MRI of both lumbar and thoracic spine negative. suggest ct abd/pelvis. now with GI bleed. Regardless, will need 6 weeks IV abx min, hold picc as cultures remain +. Admission and Anticipated Discharge Date Admission Date: December 31, 2019 Subjective pt had GI bleed overnight, now in ICU. 01/04 blood cultures also + MSSA. remains on dapto, cultures repeated this am, pending. afebrile. MRI t spine done yesterday, negative. wbc increased to 18, ESR dropped to 46, creat increased to 2.9 Results & Data ([facility]) Vital Signs (Past 12 Hours) Vital Signs Temp Pulse Pulse Resp BP BP Pulse Ox 01/07/20 08:29 72 13 122/63 94 01/07/20 08:10 36.5 C 72 17 110/68 90 01/07/20 07:17 37.1 C 75 16 120/63 93 01/07/20 06:43 118/58 L 01/07/20 06:12 36.5 C 76 18 130/72 93 01/07/20 03:25 36.5 C 74 20 127/67 94 01/07/20 02:07 70 01/06/20 23:09 36.4 C L 66 21 161/72 H 94 Laboratory Results Microbiology 01/01/20 11:50 Blood Aerobic Blood Culture - Final Staphylococcus aureus 01/01/20 11:50 Blood Anaerobic Blood Culture - Final No growth in Anaerobic bottle after 5 days. 01/01/20 11:41 Blood Aerobic Blood Culture - Final Staphylococcus aureus 01/01/20 11:41 Blood Anaerobic Blood Culture - Final No growth in Anaerobic bottle after 5 days. 01/05/20 14:46 Blood Aerobic Blood Culture - Preliminary Staphylococcus aureus 01/05/20 14:46 Blood Anaerobic Blood Culture - Preliminary No growth in Anaerobic bottle after 24 hours. 01/04/20 07:53 Blood Aerobic Blood Culture - Final Staphylococcus aureus 01/04/20 07:53 Blood Anaerobic Blood Culture - Final 01/05/20 15:35 Skin MRSA Surveillance Culture - Final No Methicillin Resistant Staph Aureus isolated. ---Surveillance culture only--- 01/04/20 07:50 Blood Aerobic Blood Culture - Preliminary Staphylococcus aureus 01/04/20 07:50 Blood Anaerobic Blood Culture - Preliminary No growth in Anaerobic bottle after 48 hours. 01/05/20 14:30 Blood Aerobic Blood Culture - Preliminary No growth in Aerobic bottle after 24 hours. 01/05/20 14:30 Blood Anaerobic Blood Culture - Final 12/31/19 12:47 Blood Aerobic Blood Culture - Final Staphylococcus aureus 12/31/19 12:47 Blood Anaerobic Blood Culture - Final 12/31/19 12:23 Blood Aerobic Blood Culture - Final Staphylococcus aureus 12/31/19 12:23 Blood Anaerobic Blood Culture - Final No growth in Anaerobic bottle after 5 days. 01/02/20 14:17 Blood Aerobic Blood Culture - Preliminary Staphylococcus aureus 01/02/20 14:17 Blood Anaerobic Blood Culture - Preliminary No growth in Anaerobic bottle after 48 hours. 01/02/20 14:18 Blood Aerobic Blood Culture - Preliminary No growth in Aerobic bottle after 48 hours. 01/02/20 14:18 Blood Anaerobic Blood Culture - Preliminary No growth in Anaerobic bottle after 48 hours. 12/31/19 13:10 Urine,Clean Catch Urine Culture - Final Staphylococcus aureus PG Care Time/CCT Total # of Minutes Spent Total Time Spent with Patient: Total time spent is greater than 50% in coordination of care (as documented) at patient's floor/unit and/or counseling patient: Coding Level of Care Code 48224 Subseq Hosp Care Lvl 1 Diagnoses Gram positive sepsis A41.89
[2020-01-07 09:01] LABS: Albumin Globulin Ratio 0.4 (0.9-2); Albumin Level 1.3 gm/dl (3.4-5.0); BUN Creatinine Ratio 34.6 (10-20); Calcium 7.4 mg/dl (8.5-10.1); Creatinine Clr Calc Pharmacy 22.7 ml/min; Est GFR (African American) 21.3; Est GFR (Non-African American) 18.3; Globulin 3.2 gm/dl (2.5-4.0); Potassium 4.6 mmol/L (3.5-5.1); Total Protein 4.5 gm/dl (6.4-8.2)
--- NOTE | 2020-01-07 09:24 | Hospitalist Progress Note ---
Date of Service January 07, 2020 Assessment & Plan (1) Bacteremia due to methicillin susceptible Staphylococcus aureus (MSSA): Continue daptomycin as per ID recommendations. Persistently bacteremic as of cultures from 01/04 (taken prior to toe fluid collection being drained). Very unclear history from patient and his . MRI lumbar and thoracic spine now performed without discitis or osteomyelitis Appreciate Dr Miller management with ingrowing toe nail removed and purulent fluid removed after this on 01/04, todays blood cultures are the first taken after this procedure. If this is positive patient will need BASIA although in setting of GI bleed this is not possible unless he gets EGD. No prosthetic joints or grafts as per his . (2) Acute GI hemorrhage: Melanic stools overnight. Appreciate management overnight and patient transferred to ICU. Suspect from prednisone given prior to and early on this admission. CT A/P without acute findings. NPO. IV Protonix drip started Type and screened for 4 units packed RBCs Currently hemodynamically stable and will hold all antihypertensives at this time Consult GI (3) Ogkel-[id number]-hrrjecn kidney injury: CT A/P without obstructive cause identified. Will treat possible pre-renal state with LR bolus 1L but suspect at this stage he has a degree of ATN. UA/micro + reflex culture pending at this time. (4) Cellulitis: Continue daptomycin as above. Purulent fluid drained 01/04. (5) Infective endocarditis: Still possible but less convincing septic emboli. Erythema on his left forearm significantly improved with decreased swelling. TTE negative for vegetation; mitral valve normal in structure and function, significant mitral regurgitation is absent. Patient still without a convincing source of persistent bacteremia however and if blood cultures from today still positive that would make his left 1st toe fluid collection unlikely to be the source. Will discuss with cardiology again today consideration for doing BASIA although in setting of GI bleed this would need to be done after EGD. (6) Bacteriuria: MSSA as above - most likely not source given prior UA 12/24 normal. No pyelonephritis changes on CT and not a significant amount of urine obtained from [place] cath to suggest retention. (7) Closed fracture of one or more phalanges of left foot: Unclear traumatic event. Possibly crowbar incident with unspecified time frame as per patient. says he goes into the garage all the time and she wouldn't know. Defer to podiatry for immobilization and management once infection controlled. (8) Back pain: MRI lumbar/thoracic spine negative for discitis/osteomyelitis. No pain on exam today. Suspected secondary to generalized myalgias from MSSA bacteremia. Total CK on admission normal. Moderate spinal stenosis at L3-4 unlikely contributory. Suspect a lot of his pain if generalized anasarca from hypoalbuminemia and recent steroid use. (9) Weakness: Suspect secondary to infection alone. Continue PT/OT as able (10) Left shoulder pain: XR negative for # Appreciate ortho assessment - suspected impingement syndrome, agree steroids currently contraindicated CT head negative. Possible need for MRI brain at some point given difficulty in examining patient to r/o CVA or septic emboli. (11) Left upper extremity swelling: Secondary to hypoalbuminemia and immobility of this arm. Improving in left arm sling. US venous doppler negative for DVT Elevate as much as possible to reduce swelling. (12) Thrombocytopenia: Now resolved. Mildly decreased in setting of MSSA bacteremia not concerning. (13) HTN (hypertension), benign: Holding antihypertensives in setting of GI bleed. Will observe for rebound hypertension and tachycardia in setting of holding atenolol (may need IV metoprolol, will defer management to ICU). (14) Hyperlipidemia: Holding simvastatin while on daptomycin (15) Depression: Continue home escitalopram (16) Vitamin D deficiency: Continue home cholecalciferol 1000 units daily (17) DVT prophylaxis: Hold Lovenox 40mg SQ daily given current GI bleed Admission and Anticipated Discharge Date Admission Date: December 31, 2019 Subjective Patient had melena overnight. Appears pale this morning. No longer complaining of any pain in his back. No chest pain, abdominal pain, nausea or vomiting. No fevers or chills. Review of Systems Review of Systems: All systems reviewed & are unremarkable except as noted in Subjective Physical Exam Constitutional: + ill appearing; + not well nourished and no acute distress pale appearing Eyes: + anicteric sclerae; normal pupil size ENMT: Mouth: + dry oral mucous membranes Neck: trachea midline Respiratory: normal respiratory effort, lungs clear to auscultation Cardiovascular: Rate/Rhythm: regular rate and regular rhythm Heart Sounds: no murmur Vessels: no JVD Extremities: normal capillary refill, + pedal edema (1+ equal b/l up to knees) and + edema (LUE edema 1+, similar to prior days) Gastrointestinal (Abdomen): Inspection/Auscultation: abdomen normal to inspection and normal bowel sounds Percussion/Palpation: abdomen soft; abdomen nontender, no guarding and abdomen not rigid Skin: Dark erythema on 2nd toes b/l unchanged. Ecchymosis on left abdomen. No petechiae or pupura. Neurologic: moves all extremities, awake and + confused; no focal motor deficits Psychiatric: Orientation: alert and oriented x 3 Affect: + irritable affect Results & Data ([facility]) Vital Signs (Past 12 Hours) Vital Signs Temp Pulse Pulse Resp BP BP Pulse Ox 01/07/20 08:29 72 13 122/63 94 01/07/20 08:10 36.5 C 72 17 110/68 90 01/07/20 07:17 37.1 C 75 16 120/63 93 01/07/20 06:43 118/58 L 01/07/20 06:12 36.5 C 76 18 130/72 93 01/07/20 03:25 36.5 C 74 20 127/67 94 01/07/20 02:07 70 01/06/20 23:09 36.4 C L 66 21 161/72 H 94 PG Care Time/CCT Total # of Minutes Spent Total Time Spent with Patient: Total time spent is greater than 50% in coordination of care (as documented) at patient's floor/unit and/or counseling patient: Coding Level of Care Code 58218 Subseq Hosp Care Lvl 3 Diagnoses Bacteremia due to methicillin susceptible Staphylococcus aureus (MSSA) R78.81; B95.61 Acute GI hemorrhage K92.2 Wgimu-hx-dfcuhby kidney injury N17.9; N18.3 Acute renal failure type: unspecified Chronic kidney disease stage: stage 3 (moderate) Cellulitis L03.114 Laterality: left Site of cellulitis: extremity Site of cellulitis of extremity: upper extremity Infective endocarditis I33.0 Chronicity: acute Infective endocarditis organism: bacterial Bacteriuria R82.71 Closed fracture of one or more phalanges of left foot S92.402A Encounter type: initial encounter Fracture alignment: displaced Phalanx: unspecified phalanx Toe: great toe Back pain M54.5 Back pain laterality: right Back pain location: low back pain Chronicity: acute Sciatica presence: without sciatica Weakness R53.1 Left shoulder pain M25.512 Chronicity: acute Left upper extremity swelling M79.89 Thrombocytopenia D69.6 HTN (hypertension), benign I10 Hyperlipidemia E78.2 Hyperlipidemia type: mixed hyperlipidemia Depression F32.9 Depression Type: unspecified Vitamin D deficiency E55.9 DVT prophylaxis Z29.9 (1) Infective endocarditis Chronicity: acute Infective endocarditis organism: bacterial Qualified Code(s): I33.0 - Acute and subacute infective endocarditis (2) Back pain Back pain laterality: right Back pain location: low back pain Chronicity: acute Sciatica presence: without sciatica Qualified Code(s): M54.5 - Low back pain (3) Cellulitis Laterality: left Site of cellulitis: extremity Site of cellulitis of extremity: upper extremity Qualified Code(s): L03.114 - Cellulitis of left upper limb (4) Closed fracture of one or more phalanges of left foot Encounter type: initial encounter Fracture alignment: displaced Phalanx: unspecified phalanx Toe: great toe Qualified Code(s): S92.402A - Displaced unspecified fracture of left great toe, initial encounter for closed fracture (5) Depression Depression Type: unspecified Qualified Code(s): F32.9 - Major depressive disorder, single episode, unspecified (6) Hyperlipidemia Hyperlipidemia type: mixed hyperlipidemia Qualified Code(s): E78.2 - Mixed hyperlipidemia (7) Left shoulder pain Chronicity: acute Qualified Code(s): M25.512 - Pain in left shoulder (8) Pwxra-oa-xbwrqjb kidney injury Acute renal failure type: unspecified Chronic kidney disease stage: stage 3 (moderate) Qualified Code(s): N17.9 - Acute kidney failure, unspecified; N18.3 - Chronic kidney disease, stage 3 (moderate)
[2020-01-07 09:52] LABS: Appearance Urine Turbid (Clear); Bacteria Urine Automated Negative (Negative); Blood Urine 3+ (Negative); Color Urine Dark Yellow; Epithelial Cell Urine Auto >30 /lpf (0-5); Glucose Urine UA Negative (Negative); Ketones Urine Trace (Negative); Leukocyte Esterase Urine 2+ (Negative); Nitrite Urine Negative (Negative); Protein Urine 1+ (Negative); Specific Gravity Urine 1.026 (1.000-1.030); Urobilinogen Urine Negative (Negative); WBC Urine Automated >30 /hpf (0-5)
[2020-01-07 09:55] LABS: Fibrinogen 469 mg/dl (184-400); INR 1.4 (0.9-1.1); Partial Thromboplastin Ratio 1.1; Partial Thromboplastin Time 30.2 Seconds (21.0-31.0); Prothrombin Time 14.5 Seconds (9.0-12.0)
[2020-01-07 09:58] LABS: D Dimer 7670 ug/L FEU (0-500)
[2020-01-07 10:00] LABS: Bilirubin Urine Negative (Negative); Ictotest Urine Negative (Negative)
--- NOTE | 2020-01-07 10:17 | Gastrointestinal Consultation ---
Date of Consultation January 07, 2020 Assessment & Plan (1) Acute blood loss anemia: Diff dx: PUD vs AVM vs diverticular vs ischemia vs other. Likely bleeding in the setting of cocurrent ASA/NSAID/corticosteroid use. 1. Recommend NPO status. 2. Maintain 2 large bore IVs at all times. 3. Recommend transfuse to keep hgb ~8. 4. Continue Protonix ggt at 8 mg/hr. 5. Stat GI bleeding scan. 6. Additional recommendations will be made pending results of testing. Thank you for allowing us to participate in the care of this pleasant patient. Do not hesitate to contact us us if you have questions or concerns. Supervising Physician Co-Signing Physician Notes I personally evaluated the patient and agree with the findings as documented by REYNA Orellana Exam: abd: soft, nt, nd obtain bleeding scan and continue protonix drip History of Present Illness Reason for Consultation: [facility] Requesting Physician: Dr. Fong Attending Physician: Radames Fong MD History of Present Illness Patient is a 84 year-old male with a history of CKD, HTN, HLD, and depression admitted to the hospital with cellulitis, weakness, and MSSA bacteremia. There is concern for bacterial endocarditis. Prior to admission, the patient was evaluated at the [facility] approximately 2 weeks ago for left shoulder pain and was treated with Toradol and Prednisone. He does take a low dose aspirin at home. GI has been consulted as the patient has developed a sudden onset of melena and arina stools as well as acute blood loss anemia. The patient's H&H was noted to drop from 13.0/38.6 down to 9.6/29.0. The patient has been placed on a PPI ggt this morning. Patient denies any abdominal pain, n/v. A non contrast CT a/p was significant only for moderate to large amount of stool in the rectum. Allergies Allergy/AdvReac Type Severity Reaction Status Date / Time Penicillins Allergy Unknown Unknown Verified 01/06/20 07:44 Sulfa (Sulfonamide Allergy Unknown Unknown Verified 01/06/20 07:44 Antibiotics) Home Medications Home Medications Medication Instructions Recorded Confirmed Type hydrochlorothiazide 25 mg tablet 25 mg PO DAILY #90 tab 04/12/19 12/31/19 Rx cholecalciferol (vitamin D3) 25 1,000 units PO DAILY #30 cap 07/26/19 12/31/19 Rx mcg (1,000 unit) capsule hydralazine 25 mg tablet 25 mg PO Q8H #90 tab 07/26/19 12/31/19 Rx multivitamin 1 cap PO DAILY #30 cap 07/26/19 12/31/19 Rx omega-3 fatty acids 1,000 mg 1,000 mg PO BID #30 cap 07/26/19 12/31/19 Rx capsule vit C-vit L-ubchhx-rayr ox-lutein 1 cap PO BID #30 cap 07/26/19 12/31/19 Rx 226 mg-200 unit-5 mg-0.8 mg capsule escitalopram oxalate 10 mg tablet 10 mg PO DAILY #30 tab 09/13/19 12/31/19 Rx atenolol 100 mg tablet 100 mg PO DAILY #30 tab 12/13/19 12/31/19 Rx cyclobenzaprine 10 mg tablet 10 mg PO TID PRN #14 tab 12/28/19 12/31/19 Rx prednisone 50 mg tablet 50 mg PO DAILY #5 tab 12/28/19 12/31/19 Rx tramadol 50 mg tablet See Rx Instructions PO Q6H PRN #16 12/28/19 12/31/19 Rx tab aspirin 81 mg PO HS 12/31/19 12/31/19 History simvastatin 20 mg PO HS 12/31/19 12/31/19 History Patient History Medical History Chronic kidney disease, stage III (moderate) (Acute) Depression (Chronic) HTN (hypertension), benign (Chronic) Hyperlipidemia (Chronic) Vitamin D deficiency Surgical History No history of previous surgery Family History Denies family history of Ovarian cancer Prostate cancer Myocardial infarction Breast cancer Colorectal cancer Social History Preferred Language: Czech Communication Ability: Effective Visual Impairment: No Limitations Hearing Ability: Normal Tenderizer Tender Required: No Beliefs That Will Affect Care: None marital status: Current Living Situation: Spouse current occupational status: retired Other Information That Helps Us Care for You: No Feels Safe at Home: Yes Safety Concerns: Feels Safe At This Time Smoking Status: Never smoker Do You Dip or Chew Tobacco: No ; Second Hand Exposure: No ; Tobacco Cessation Education Requested by Patient: No Hx Alcohol Use: No Hx Substance Use: No caffeine: Yes Dental Care, Regularly: No Physical Activity Frequency: Does not Exercise Seatbelt Use: always Sunscreen Use: No Review of Systems Constitutional: no fever Eyes: no problem reported Ear, Nose, Mouth, Throat: no problem reported Respiratory: no problem reported Cardiovascular: no chest pain and no palpitations Gastrointestinal: as per Subjective / HPI Musculoskeletal: as per Subjective / HPI Integumentary: as per Subjective / HPI Neurologic: no problem reported Psychiatric: no problem reported Physical Exam Constitutional: WD/WN, vitals as above Eyes: EOM intact bilaterally ENMT: Mouth: no oral mucosal abnormality Respiratory: Auscultation: + breath sounds absent and + rales (bases) Cardiovascular: Rate/Rhythm: regular rate and regular rhythm Gastrointestinal (Abdomen): Inspection/Auscultation: + hyperactive bowel sounds Percussion/Palpation: abdomen soft; abdomen nontender Musculoskeletal: +anasarca Skin: no rashes, warm and dry Psychiatric: A+Ox3, euthymic affect Results & Data ([facility]) Vital Signs (Past 12 Hours) Vital Signs Temp Pulse Pulse Resp BP BP Pulse Ox 01/07/20 08:29 72 13 122/63 94 01/07/20 08:10 36.5 C 72 17 110/68 90 01/07/20 07:17 37.1 C 75 16 120/63 93 01/07/20 07:05 72 01/07/20 06:43 118/58 L 01/07/20 06:12 36.5 C 76 18 130/72 93 01/07/20 03:25 36.5 C 74 20 127/67 94 01/07/20 02:07 70 01/06/20 23:09 36.4 C L 66 21 161/72 H 94 Laboratory Results Abnormal lab results 01/07/20 01/07/20 01/07/20 Range/Units 05:41 05:41 05:41 WBC 18.80 H (4.8-10.8) K/uL RBC 3.23 L (4.7-6.1) M/uL Hgb 10.0 L D (14.0-18.0) g/dL Hct 29.5 L (42-52) % RDW Std Deviation 54.2 H (36.4-46.3) fL RDW Coeff of Alize 16.3 H (11.5-14.5) % MPV 12.9 H (7.4-10.4) fL Immature Gran # (Auto) 0.23 H (0.00-0.02) K/uL Neut # (Auto) 15.79 H (1.4-6.5) K/uL Doddridge # (Auto) 1.50 H (0.11-0.59) K/uL ESR 46 H (0-14) mm/hr PT (9.0-12.0) Seconds INR (0.9-1.1) Fibrinogen (184-400) mg/dl Fibrin Degrad Products (<10) mcg/ml D-Dimer (0-500) ug/L FEU Chloride (98-107) mmol/L BUN 103 H (7-18) mg/dl Creatinine 2.92 H D (0.6-1.4) mg/dl BUN/Creatinine Ratio 35.3 H (10-20) Glucose 124 H (70-99) mg/dl Calcium 7.3 L (8.5-10.1) mg/dl Total Bilirubin 1.1 H (0.2-1) mg/dl Lactate Dehydrogenase (87-241) U/L C-Reactive Protein 15.30 H (0-0.29) mg/dl Total Protein 4.6 L (6.4-8.2) gm/dl Albumin 1.2 L (3.4-5.0) gm/dl Albumin/Globulin Ratio 0.4 L (0.9-2) Urine Appearance (Clear) Urine Protein (Negative) Urine Ketones (Negative) Urine Blood (Negative) Ur Leukocyte Esterase (Negative) Urine WBC (Auto) (0-5) /hpf Urine RBC (Auto) (0-4) /hpf U Hyaline Cast (Auto) (0-5) /lpf U Epithel Cells (Auto) (0-5) /lpf Granular Casts (0) /lpf Urine Yeast (None Prsent) Crossmatch 01/07/20 01/07/20 01/07/20 Range/Units 06:33 08:16 08:16 WBC (4.8-10.8) K/uL RBC (4.7-6.1) M/uL Hgb (14.0-18.0) g/dL Hct (42-52) % RDW Std Deviation (36.4-46.3) fL RDW Coeff of Alize (11.5-14.5) % MPV (7.4-10.4) fL Immature Gran # (Auto) (0.00-0.02) K/uL Neut # (Auto) (1.4-6.5) K/uL Doddridge # (Auto) (0.11-0.59) K/uL ESR (0-14) mm/hr PT 14.5 H (9.0-12.0) Seconds INR 1.4 H (0.9-1.1) Fibrinogen 469 H (184-400) mg/dl Fibrin Degrad Products (<10) mcg/ml D-Dimer 7670 H* (0-500) ug/L FEU Chloride 108 H (98-107) mmol/L BUN 105 H (7-18) mg/dl Creatinine 3.02 H (0.6-1.4) mg/dl BUN/Creatinine Ratio 34.6 H (10-20) Glucose 124 H (70-99) mg/dl Calcium 7.4 L (8.5-10.1) mg/dl Total Bilirubin (0.2-1) mg/dl Lactate Dehydrogenase (87-241) U/L C-Reactive Protein (0-0.29) mg/dl Total Protein 4.5 L (6.4-8.2) gm/dl Albumin 1.3 L (3.4-5.0) gm/dl Albumin/Globulin Ratio 0.4 L (0.9-2) Urine Appearance (Clear) Urine Protein (Negative) Urine Ketones (Negative) Urine Blood (Negative) Ur Leukocyte Esterase (Negative) Urine WBC (Auto) (0-5) /hpf Urine RBC (Auto) (0-4) /hpf U Hyaline Cast (Auto) (0-5) /lpf U Epithel Cells (Auto) (0-5) /lpf Granular Casts (0) /lpf Urine Yeast (None Prsent) Crossmatch See Detail 0301/07/20 01/07/20 Range/Units 08:18 08:18 08:18 WBC (4.8-10.8) K/uL RBC (4.7-6.1) M/uL Hgb 9.6 L (14.0-18.0) g/dL Hct 29.0 L (42-52) % RDW Std Deviation (36.4-46.3) fL RDW Coeff of Alize (11.5-14.5) % MPV (7.4-10.4) fL Immature Gran # (Auto) (0.00-0.02) K/uL Neut # (Auto) (1.4-6.5) K/uL Doddridge # (Auto) (0.11-0.59) K/uL ESR (0-14) mm/hr PT (9.0-12.0) Seconds INR (0.9-1.1) Fibrinogen (184-400) mg/dl Fibrin Degrad Products >40 H (<10) mcg/ml D-Dimer (0-500) ug/L FEU Chloride (98-107) mmol/L BUN (7-18) mg/dl Creatinine (0.6-1.4) mg/dl BUN/Creatinine Ratio (10-20) Glucose (70-99) mg/dl Calcium (8.5-10.1) mg/dl Total Bilirubin (0.2-1) mg/dl Lactate Dehydrogenase 253 H (87-241) U/L C-Reactive Protein (0-0.29) mg/dl Total Protein (6.4-8.2) gm/dl Albumin (3.4-5.0) gm/dl Albumin/Globulin Ratio (0.9-2) Urine Appearance (Clear) Urine Protein (Negative) Urine Ketones (Negative) Urine Blood (Negative) Ur Leukocyte Esterase (Negative) Urine WBC (Auto) (0-5) /hpf Urine RBC (Auto) (0-4) /hpf U Hyaline Cast (Auto) (0-5) /lpf U Epithel Cells (Auto) (0-5) /lpf Granular Casts (0) /lpf Urine Yeast (None Prsent) Crossmatch 01/07/20 Range/Units 09:00 WBC (4.8-10.8) K/uL RBC (4.7-6.1) M/uL Hgb (14.0-18.0) g/dL Hct (42-52) % RDW Std Deviation (36.4-46.3) fL RDW Coeff of Alize (11.5-14.5) % MPV (7.4-10.4) fL Immature Gran # (Auto) (0.00-0.02) K/uL Neut # (Auto) (1.4-6.5) K/uL Doddridge # (Auto) (0.11-0.59) K/uL ESR (0-14) mm/hr PT (9.0-12.0) Seconds INR (0.9-1.1) Fibrinogen (184-400) mg/dl Fibrin Degrad Products (<10) mcg/ml D-Dimer (0-500) ug/L FEU Chloride (98-107) mmol/L BUN (7-18) mg/dl Creatinine (0.6-1.4) mg/dl BUN/Creatinine Ratio (10-20) Glucose (70-99) mg/dl Calcium (8.5-10.1) mg/dl Total Bilirubin (0.2-1) mg/dl Lactate Dehydrogenase (87-241) U/L C-Reactive Protein (0-0.29) mg/dl Total Protein (6.4-8.2) gm/dl Albumin (3.4-5.0) gm/dl Albumin/Globulin Ratio (0.9-2) Urine Appearance Turbid A (Clear) Urine Protein 1+ H (Negative) Urine Ketones Trace H (Negative) Urine Blood 3+ H (Negative) Ur Leukocyte Esterase 2+ H (Negative) Urine WBC (Auto) >30 H (0-5) /hpf Urine RBC (Auto) 10-30 H (0-4) /hpf U Hyaline Cast (Auto) 5-10 H (0-5) /lpf U Epithel Cells (Auto) >30 H (0-5) /lpf Granular Casts 1-5 H (0) /lpf Urine Yeast Budding A (None Prsent) Crossmatch PG Care Time/CCT Total # of Minutes Spent Total Time Spent with Patient: Total time spent is greater than 50% in coordination of care (as documented) at patient's floor/unit and/or counseling patient: Coding Level of Care Code 09821 Initial Inpt Care Lvl 3 Diagnoses Acute blood loss anemia D62
[2020-01-07 10:19] LABS: Renal Epithelial Cells Urine 0-5 /lpf (0-5)
--- NOTE | 2020-01-07 13:49 | Podiatry Consultation ---
Date of Consultation January 07, 2020 History of Present Illness Attending Physician: Radames Fong MD Patient was transferred to the ICU last night due to a GI bleed - I will sign off from this patient in terms of podiatry services. In terms of the toenail - this was stable as of yesterday with no further purulent drainage, I do not feel that the source of the infection is stemming from the toe. The toe fracture will be managed with a stiff soled shoe or surgical shoe. At this time this patient's declining H and H is most concerning as well as the infection, and finding the source which is not from the toe. - I took cultures from the procedure listed under the culture obtained from the skin on 01/04 - He will need a gauze dressing over the toe for his duration of time in the hospital - he will need a surgical shoe to manage the fracture and offloading - I have discussed this with ICU nurse managing this patient, as the attending in the ICU was in a family care meeting, please feel free to reach my via phone for further questions, thank you for this consultation. Allergies Allergy/AdvReac Type Severity Reaction Status Date / Time Penicillins Allergy Unknown Unknown Verified 01/06/20 07:44 Sulfa (Sulfonamide Allergy Unknown Unknown Verified 01/06/20 07:44 Antibiotics) Home Medications Home Medications Medication Instructions Recorded Confirmed Type hydrochlorothiazide 25 mg tablet 25 mg PO DAILY #90 tab 04/12/19 12/31/19 Rx cholecalciferol (vitamin D3) 25 1,000 units PO DAILY #30 cap 07/26/19 12/31/19 Rx mcg (1,000 unit) capsule hydralazine 25 mg tablet 25 mg PO Q8H #90 tab 07/26/19 12/31/19 Rx multivitamin 1 cap PO DAILY #30 cap 07/26/19 12/31/19 Rx omega-3 fatty acids 1,000 mg 1,000 mg PO BID #30 cap 07/26/19 12/31/19 Rx capsule vit C-vit H-bhgbxi-yjsw ox-lutein 1 cap PO BID #30 cap 07/26/19 12/31/19 Rx 226 mg-200 unit-5 mg-0.8 mg capsule escitalopram oxalate 10 mg tablet 10 mg PO DAILY #30 tab 09/13/19 12/31/19 Rx atenolol 100 mg tablet 100 mg PO DAILY #30 tab 12/13/19 12/31/19 Rx cyclobenzaprine 10 mg tablet 10 mg PO TID PRN #14 tab 12/28/19 12/31/19 Rx prednisone 50 mg tablet 50 mg PO DAILY #5 tab 12/28/19 12/31/19 Rx tramadol 50 mg tablet See Rx Instructions PO Q6H PRN #16 12/28/19 12/31/19 Rx tab aspirin 81 mg PO HS 12/31/19 12/31/19 History simvastatin 20 mg PO HS 12/31/19 12/31/19 History Patient History Medical History Chronic kidney disease, stage III (moderate) (Acute) Depression (Chronic) HTN (hypertension), benign (Chronic) Hyperlipidemia (Chronic) Vitamin D deficiency Surgical History No history of previous surgery Family History Denies family history of Ovarian cancer Prostate cancer Myocardial infarction Breast cancer Colorectal cancer Social History Preferred Language: Iraqi Communication Ability: Effective Visual Impairment: No Limitations Hearing Ability: Normal City Bailiff Required: No Beliefs That Will Affect Care: None marital status: Current Living Situation: Spouse current occupational status: retired Other Information That Helps Us Care for You: No Feels Safe at Home: Yes Safety Concerns: Feels Safe At This Time Smoking Status: Never smoker Do You Dip or Chew Tobacco: No ; Second Hand Exposure: No ; Tobacco Cessation Education Requested by Patient: No Hx Alcohol Use: No Hx Substance Use: No caffeine: Yes Dental Care, Regularly: No Physical Activity Frequency: Does not Exercise Seatbelt Use: always Sunscreen Use: No Results & Data Vital Signs (Past 12 Hours) Vital Signs Temp Pulse Pulse Resp BP BP Pulse Ox 01/07/20 11:40 66 22 130/69 93 01/07/20 11:10 67 22 120/61 95 01/07/20 10:40 69 22 128/60 92 01/07/20 10:10 69 24 122/58 L 96 01/07/20 09:40 71 23 123/68 95 01/07/20 09:10 71 22 104/64 94 01/07/20 08:58 70 28 H 124/64 98 01/07/20 08:29 72 13 122/63 94 01/07/20 08:10 36.5 C 72 17 110/68 90 01/07/20 07:17 37.1 C 75 16 120/63 93 01/07/20 07:05 72 01/07/20 06:43 118/58 L 01/07/20 06:12 36.5 C 76 18 130/72 93 01/07/20 03:25 36.5 C 74 20 127/67 94 01/07/20 02:07 70
--- NOTE | 2020-01-07 13:57 | Nuclear Medicine Report ---
NM GI bleeding HISTORY: hematochezia and melena, GI bleed TECHNIQUE: Immediately following the intravenous administration of 25 mCi of technetium 99m UltraTag, dynamic abdominal imaging was performed for a total of 60 minutes. COMPARISON STUDY: Abdomen and pelvis CT 01/07/2020. FINDINGS: No abnormal radiotracer uptake identified within the abdomen or pelvis to suggest an active GI bleed. IMPRESSION: No evidence for active GI bleed. ACT 112: Negative or not required by law. Electronically signed by: Lefty Messina M.D. 01/07/2020 1:56 PM
--- NOTE | 2020-01-07 14:18 | Communication Note ---
Date of Service: January 07, 2020 GI brief note: bleeding scan is negative for active GI bleeding. Recs: continue PPI drip and supportive care no endoscopic intervention at this time will continue to follow Jason Hunter MD Gastroenterology
--- NOTE | 2020-01-07 14:33 | Palliative Care Consultation ---
Date of Consultation January 07, 2020 Assessment & Plan (1) Goals of care, counseling/discussion: -84 year old male patient with PMH htn, depression, CKD stage III, and others, presented to the hospital four days ago with possible cellulitis of left toe. Patient was found to have MSSA bacteremia. White count was initially 20k, did improve to 13k, but now is rising again. Patient had creatinine of 1.6 on arrival, which again did improve back to normal, but now is continuing to rise and is 3.02. Patient was initially on medical floor receiving abx, however he has unfortunately continued to decline. Now today, patient developed GI bleeding with melena and was sent to the ICU. His liver enzymes are elevated, WBC rising, creatinine rising. May need BASIA to check for heart valve vegetation. COuld need dialysis in next day or two. Given that patient is an 84 year old gentleman with now multi system organ failure, palliative care is consulted to discuss goals of care with family. -Met with patient in room 110 this morning. He is awake but somewhat drowsy. He is pleasant and comfortable, states he is having no pain. Asked him where he was, he said, "No, I don't know." He could not tell me the month or year. -Called patient's , Lucy Basurto. She has been given hospital permission to visit during these restricted visiting policy, and will be in at 1pm. -Met with patient's Lucy, Dr. Chris, myself and Dr. Mcdaniel for part of conversation. phoned one of patient's two sons, Emiliano, in to discuss. -Full medical update given. Patient's is practical and states that patient was fiercely independent and stubborn at baseline. He finds tavares in mowing the grass and doing thing around the house. states that if he is not able to do those things, he would not be satisfied with his quality of life. Son, Emiliano, agrees. -We will NOT pursue dialysis if kidney function worsens. We will also not do CPR or intubation. -At this point, we will continue abx, obtain the bleeding scan and pursue GI consultation. They are okay with BASIA if needed. Again, if patient worsens in next 24-48 hours, more conversation needs to be had with family about goals of care. They reiterated many times that patient's independence is extremely important to him and he would not want to end up in a residential or in a debilitated state. -We will continue to follow. (2) Acute GI hemorrhage: (3) Bacteremia due to methicillin susceptible Staphylococcus aureus (MSSA): (4) Cellulitis of left toe: Supervising Physician Co-Signing Physician Notes Chart reviewed Present during conversation regarding goals of care with patient's and son by phone Agree with above note, assessment and plan as per REYNA Barrett-will continue to follow and assist and family with medical decision making History of Present Illness Attending Physician: Radames Fong MD History of Present Illness This 84 year old male patient with PMH htn, depression, CKD stage III, and others, presented to the hospital four days ago with possible cellulitis of left toe. Patient was found to have MSSA bacteremia. White count was initially 20k, did improve to 13k, but now is rising again. Patient had creatinine of 1.6 on arrival, which again did improve back to normal, but now is continuing to rise and is 3.02. Patient was initially on medical floor receiving abx, however he has unfortunately continued to decline. Now today, patient developed GI bleeding with melena and was sent to the ICU. His liver enzymes are elevated, WBC rising, creatinine rising. May need BASIA to check for heart valve vegetation. COuld need dialysis in next day or two. Given that patient is an 84 year old gentleman with now multi system organ failure, palliative care is consulted to discuss goals of care with family. Thank you kindly for this consult. Palliative care team will follow as needed. Allergies Allergy/AdvReac Type Severity Reaction Status Date / Time Penicillins Allergy Unknown Unknown Verified 01/06/20 07:44 Sulfa (Sulfonamide Allergy Unknown Unknown Verified 01/06/20 07:44 Antibiotics) Home Medications Home Medications Medication Instructions Recorded Confirmed Type hydrochlorothiazide 25 mg tablet 25 mg PO DAILY #90 tab 04/12/19 12/31/19 Rx cholecalciferol (vitamin D3) 25 1,000 units PO DAILY #30 cap 07/26/19 12/31/19 Rx mcg (1,000 unit) capsule hydralazine 25 mg tablet 25 mg PO Q8H #90 tab 07/26/19 12/31/19 Rx multivitamin 1 cap PO DAILY #30 cap 07/26/19 12/31/19 Rx omega-3 fatty acids 1,000 mg 1,000 mg PO BID #30 cap 07/26/19 12/31/19 Rx capsule vit C-vit B-qkzdpa-bugf ox-lutein 1 cap PO BID #30 cap 07/26/19 12/31/19 Rx 226 mg-200 unit-5 mg-0.8 mg capsule escitalopram oxalate 10 mg tablet 10 mg PO DAILY #30 tab 09/13/19 12/31/19 Rx atenolol 100 mg tablet 100 mg PO DAILY #30 tab 12/13/19 12/31/19 Rx cyclobenzaprine 10 mg tablet 10 mg PO TID PRN #14 tab 12/28/19 12/31/19 Rx prednisone 50 mg tablet 50 mg PO DAILY #5 tab 12/28/19 12/31/19 Rx tramadol 50 mg tablet See Rx Instructions PO Q6H PRN #16 12/28/19 12/31/19 Rx tab aspirin 81 mg PO HS 12/31/19 12/31/19 History simvastatin 20 mg PO HS 12/31/19 12/31/19 History Patient History Medical History Chronic kidney disease, stage III (moderate) (Acute) Depression (Chronic) HTN (hypertension), benign (Chronic) Hyperlipidemia (Chronic) Vitamin D deficiency Surgical History No history of previous surgery Family History Denies family history of Ovarian cancer Prostate cancer Myocardial infarction Breast cancer Colorectal cancer Social History Preferred Language: Estonian Communication Ability: Effective Visual Impairment: No Limitations Hearing Ability: Normal Ecological Risk Assessor Required: No Beliefs That Will Affect Care: None marital status: Current Living Situation: Spouse current occupational status: retired Other Information That Helps Us Care for You: No Feels Safe at Home: Yes Safety Concerns: Feels Safe At This Time Smoking Status: Never smoker Do You Dip or Chew Tobacco: No ; Second Hand Exposure: No ; Tobacco Cessation Education Requested by Patient: No Hx Alcohol Use: No Hx Substance Use: No caffeine: Yes Dental Care, Regularly: No Physical Activity Frequency: Does not Exercise Seatbelt Use: always Sunscreen Use: No Review of Systems Review of Systems: No pain No SOB Full ROS difficult to obtain due to drowsiness. Physical Exam Constitutional: + frail appearing; no acute distress ENMT: external ear and nose normal, oropharynx normal Respiratory: normal respiratory effort, lungs clear to auscultation Cardiovascular: Rate/Rhythm: regular rate and regular rhythm Extremities: + edema (BLE) Gastrointestinal (Abdomen): Inspection/Auscultation: normal bowel sounds Percussion/Palpation: abdomen soft; abdomen nontender Neurologic: moves all extremities, awake and + confused Psychiatric: Orientation: oriented to person; + not oriented to place and + not oriented to time Results & Data Vital Signs (Past 12 Hours) Vital Signs Temp Pulse Pulse Resp BP BP Pulse Ox 01/07/20 14:07 67 22 134/67 95 01/07/20 11:40 66 22 130/69 93 01/07/20 11:10 67 22 120/61 95 01/07/20 10:40 69 22 128/60 92 01/07/20 10:10 69 24 122/58 L 96 01/07/20 09:40 71 23 123/68 95 01/07/20 09:10 71 22 104/64 94 01/07/20 08:58 70 28 H 124/64 98 01/07/20 08:29 72 13 122/63 94 01/07/20 08:10 36.5 C 72 17 110/68 90 01/07/20 07:17 37.1 C 75 16 120/63 93 01/07/20 07:05 72 01/07/20 06:43 118/58 L 01/07/20 06:12 36.5 C 76 18 130/72 93 01/07/20 03:25 36.5 C 74 20 127/67 94 PG Care Time/CCT Total # of Minutes Spent Total Time Spent with Patient: Total time spent is greater than 50% in coordination of care (as documented) at patient's floor/unit and/or counseling patient: 70 minutes. Coding Level of Care Code 35074 Inpt Consult Level 3 Diagnoses Goals of care, counseling/discussion Z71.89 Acute GI hemorrhage K92.2 Bacteremia due to methicillin susceptible Staphylococcus aureus (MSSA) R78.81; B95.61 Cellulitis of left toe L03.032 Time Spent (min) 70
[2020-01-07 15:50] LABS: Hematocrit (blood only) 26.1 % (42-52); Hemoglobin 8.8 g/dL (14.0-18.0)
[2020-01-07] MEDS ORDERED: LABETALOL HCL IV 5 MG/ML 20ML IV PRN (16:42)
[2020-01-07] MEDS ORDERED: NORMOSOL-R 1,000 ML IV SCH (16:45)
[2020-01-07] MEDS ORDERED: HydrALAZINE HCL 20 MG/ML VIAL IV PRN (16:48)
[2020-01-07 19:02] LABS: Calcium 7.2 mg/dl (8.5-10.1); Creatinine Clr Calc Pharmacy 20.2 ml/min; Est GFR (African American) 18.2; Est GFR (Non-African American) 15.7; Magnesium 3.1 mg/dl (1.8-2.4); Phosphorus 6.6 mg/dl (2.5-4.9); Potassium 4.6 mmol/L (3.5-5.1)
[2020-01-07 19:06] LABS: Hematocrit (blood only) 22.6 % (42-52); Hemoglobin 7.6 g/dL (14.0-18.0); Mean Corpuscular Volume 92.2 fL (80-100); Mean Platelet Volume 12.2 fL (7.4-10.4); Platelet Count 226 K/uL (130-400); RDW Coefficient of Variation 16.1 % (11.5-14.5); RDW Standard Deviation 54.2 fL (36.4-46.3); Red Blood Count 2.45 M/uL (4.7-6.1); White Blood Count 19.48 K/uL (4.8-10.8)
--- NOTE | 2020-01-07 19:21 | Billing Data ---
Date of Service January 07, 2020 Coding Level of Care Code Critical Care ea addt'l 30 min
[2020-01-07 19:30] LABS: Mean Corpuscular Hgb Conc 33.6 g/dL (32-36)
[2020-01-07 19:44] LABS: Basophils # (auto) 0.03 K/uL (0-0.2); Basophils % (auto) 0.2 %; Echinocytes 1+; Eosinophils # (auto) 0.05 K/uL (0-0.5); Eosinophils % (auto) 0.3 %; Immature Granulocytes # (auto) 0.25 K/uL (0.00-0.02); Immature Granulocytes % (auto) 1.3 %; Lymphocytes # (auto) 1.53 K/uL (1.2-3.4); Lymphocytes % (auto) 7.9 %; Monocytes # (auto) 1.34 K/uL (0.11-0.59); Monocytes % (auto) 6.9 %; Neutrophils # (auto) 16.28 K/uL (1.4-6.5); Neutrophils % (auto) 83.4 %
[2020-01-07] MEDS ORDERED: LORazepam 0.5 MG/1 ML VIAL IV PRN (20:51)
[2020-01-07] MEDS ORDERED: ONDANSETRON INJ 2 MG/ML 2 ML VIAL IV PRN (20:51)
[2020-01-07] MEDS ORDERED: STAT IV Infusion **Titration per Protocol STA (20:51)
[2020-01-07] MEDS ORDERED: LORazepam 0.5 MG TAB PO PRN (20:51)
[2020-01-07] MEDS ORDERED: ONDANSETRON 4 MG OD TAB SL PRN (20:51)
[2020-01-07] MEDS ORDERED: ATROPINE SULFATE 1% OP SOLN 2 ML BTL SL PRN (20:51)
[2020-01-07] MEDS ORDERED: ACETAMINOPHEN 650 MG SUPP PR PRN (20:51)
[2020-01-07] MEDS: MoRPHine SULF/NSS 250 MG/250 ML BTL IV SCH ×2 (21:13→22:15)
--- NOTE | 2020-01-07 21:13 | Communication Note ---
Date of Service: January 07, 2020 Shortly after change of shift, it was brought to our attention that the patient's repeat laboratory work did show decline in renal function. The patient is essentially an uric at this time. Additionally, the patient was typed and screened for units of blood. His bleeding scan was apparently negative earlier. His hemodynamics have been stable at this point. Earlier in the day, transition to DNR/DNI status was discussed. My attending physician did speak with the patient's by phone and discuss declining status. Given the unprecedented circumstances surrounding the current Covid-19 pandemic and risk for transmission, the family including and son were the only ones allowed at bedside per hospital policy and extenuating circumstances. I would deem this is such at this point as this is end-of-life decision-making requiring a unified family decision. They were met at the emergency department door and screened appropriately per hospital policy in place. At this point, I did have an extensive discussion with patient's and son at bedside. I explained decline in status as well as concerns for ongoing bacteremia without specific source noted at this time as well as worrisome melanotic stools with need for blood transfusion. After lengthy discussion and regarding family's wishes for patient's quality of life concerns, it was agreed upon by family that the patient would be made comfort measures only at this point. They declined blood transfusion at this time. I did discuss with them that at this point, we would proceed with morphine drip for comfort. Patient and family do request this and are in agreement at this point. I did discuss that at this point, the patient will be less communicative as we focus our goals of care on his comfort only. All other unnecessary medications will be discontinued at this time. Lab draws and blood pressure readings as well. I had the unfortunate displeasure of explained to family that we would only be allowing one family member present at bedside at any given time and that remaining family members would need to exit the building for risk of possible communicable spread and for family safety as well. Is difficult of conversation as this was, family completely understands and will abide by hospitalist rules. Patient transition to comfort measures only at this time. Will remain in ICU room overnight at this time with decisions to transfer out as needed tomorrow. I have personally spent 45 minutes of critical care time in the direct management of this patient. This is a life/limb threatening event. This includes time spent evaluating patient, direct bedside care, chart review, placing orders, interpretation of diagnostic studies, discussion with consultants, patient, and family members, as well as other required patient management activities. This time is exclusive of all separately billable procedures, and teaching time and separate from and in addition to any other critical care service time. Coding Level of Care Code Critical Care ea addt'l 30 min Time Spent (min) 45
--- NOTE | 2020-01-08 01:06 | Death Pronouncement Note ---
Date of Service January 08, 2020 Date: 01/08/2020 Time: 48 I was contacted by nursing staff regarding the patients declining status and concerns for imminent demise. In short, patient is an unfortunate 84-year-old male that was initially admitted to this facility with MSSA bacteremia of questionable source. Patient had been on multiple antibiotic therapies and despite this, the patient had had repeat cultures which continues to show MSSA bacteremia. His course was complicated with development of melanotic stools which started yesterday. After multiple assessments from an interdisciplinary approach, the patient's outlook became more futile. His kidneys began to fail. He became nearly an uric. While his GI scan demonstrated no active bleeding, the patient did lose a moderate amount of blood initially. After conversation with family at bedside, ultimate decision was made to institute comfort measures only as at this point, the family was more focused on quality of life and recognize that this point, there is likely no meaningful recovery, particularly with ongoing infection and with multisystem failure at this point. Patient was placed on a morphine drip at the request of family. He remained comfortable throughout his transition to . Patient became bradycardic relatively rapidly and nursing staff and myself presented to bedside where the patient was having what appeared to be agonal rhythm on the monitor. Shortly after, the patient became asystolic. Time of recorded as 48. Assessment: I presented to the patients room for evaluation. Upon assessment, the patient was found to be in a terminal state. Pupils were fixed and dilated without response. No palpable pulses appreciated. No spontaneous breaths noted. Heart sounds were absent. No response to painful stimuli. Time of : 48 as pronounced by myself. I did reach out to the patient's , Lucy ([phone]) to make her aware of her 's passing. She acknowledged her understanding and was appreciative of all care provided throughout her 's hospitalization. I did receive contact information regarding home and point of contact for subsequent services. Appropriate response to grief appreciated. Condolences provided. Questions were addressed and emotional support was provided. Patients primary service was contacted and made aware of patient demise. Pronouncement section of the Certificate was filled out and signed by myself. Cause of : Primary - MSSA Bacteremia Secondary - GIB, ARF, CHF Contributing Causes of - CKDIII, HLD, HTN, Cellulitis Please feel free to contact me with any questions regarding the above-mentioned course. Pronouncement Note Admission Date Admission Date: December 31, 2019 Contributing Factors (1) Acute GI hemorrhage: Additional Data Attending physician: Radames Fong MD Coding Level of Care Code None Diagnoses Acute GI hemorrhage K92.2 Time Spent (min) 30
[2020-01-08] MEDS ORDERED: DAPTOmycin 525 MG in SYRINGE 0 ML IV SCH (09:00)
[2020-01-08] MEDS ORDERED: cefTRIAXone SODIUM 2,000 MG in DEXTROSE 5% 50 ML IV SCH (09:00)
--- NOTE | 2020-01-08 14:20 | Discharge Summary ---
Date of Service January 08, 2020 Admission HPI Per Admitting Provider 84-year-old male presents with his with concerns for ongoing low back pain, left shoulder pain, and more recently difficulty with ambulation as well as bilateral leg "weakness" and areas of skin redness. -The patient was initially seen back on December 24 in the ED complaining of severe right flank and back pain beginning the day prior. See related ED notes. Ultimate diagnosis was acute right flank pain without evidence of an acute abdominal infectious/surgical process. Thought to be musculoskeletal in origin. - Patient was seen by his primary care provider on December 27. See related note. Diagnosed with muscle strain, thought to be due to lifting a long ladder recently. Given IM Solu-Medrol and IM Toradol. Sent home on prednisone 50 mg daily as well as prn cyclobenzaprine and tramadol. - Since that time, patient and his say that his left shoulder and low back pain have only worsened. He also says it is hard for him to move both of his legs. He only got out of bed once yesterday to go to use the bathroom. He denies any changes in urinary habits to include any difficulty with urination or overflow incontinence. Says he had a normal bowel movement yesterday morning. Denies any numbness around his bottom. No known falls. He is also noticed an interval area of redness, warmth, and tenderness along his ventral distal left wrist as well as around his bilateral big toes. He says his toes "tingle" but are not painful both at baseline or with movement. Denies any problems with left wrist movement. His says that he was "more spacey yesterday" so she stopped giving him the cyclobenzaprine and tramadol mid afternoon. No known recent insect/tick bites. says they have not been traveling recently and have no known infectious exposures. - Past medical history includes hypertension, hyperlipidemia, depression, vitamin D deficiency, diverticulosis, hepatic steatosis, CKD stage III, osteopenia, left-sided rib fractures - Past surgical history (per patient) notes removal of a spine cyst over 15 years ago. - Social history includes no prior tobacco use. Denies alcohol use. Lives at home with . Principal Diagnosis MSSA bacteremia Acute kidney injury Gastrointestinal bleed Discharge Data Allergies Allergy/AdvReac Type Severity Reaction Status Date / Time Penicillins Allergy Unknown Unknown Verified 01/06/20 07:44 Sulfa (Sulfonamide Allergy Unknown Unknown Verified 01/06/20 07:44 Antibiotics) Consultations 01/03/20 08:11 Consult Infectious Diseases Routine 01/03/20 20:34 Consult Cardiology Routine 01/03/20 20:55 Consult Orthopedic Surgery Routine 01/05/20 14:48 Consult Podiatry Routine 01/07/20 06:07 Consult Gastroenterology Routine 01/07/20 08:13 Consult Case Management - Discharge Planning Routine 01/07/20 09:53 Consult Palliative Care Routine 01/07/20 14:26 Consult Expansion Envelope Maker Hand Routine 01/07/20 20:52 Consult Case Management - Discharge Planning Routine Consult Palliative Care Routine Ordered Studies 01/02/20 14:06 MR lumbar spine wo/w con Urgent 01/03/20 13:30 US venous doppler UE LT Routine 01/04/20 13:30 US liver Routine 01/04/20 14:30 CT foot LT w con Routine 01/05/20 18:10 CT head/brain wo con Routine 01/06/20 06:43 MR thoracic spine wo/w con Routine 01/07/20 07:37 CT abd pelvis wo con Stat Hospital Course (1) Bacteremia due to methicillin susceptible Staphylococcus aureus (MSSA): Mingo Basurto was admitted to [facility] on December 30 to 2019 due to back pain and altered mental state. He was diagnosed with MSSA bacteremia which continued to be persistent with multiple imaging studies negative for persistent source of infection. He developed GI bleeding and acute kidney injury (suspected ATN). Discussion regarding interventions including blood transfusions and dialysis was discussed with his and in light or persistent MSSA bacteremia they elected for comfort care. Mingo on 01/08/2020 at 0049. (2) Acute GI hemorrhage: (3) Ovvvj-bi-snrvjxh kidney injury: (4) Cellulitis: (5) Infective endocarditis: (6) Bacteriuria: (7) Closed fracture of one or more phalanges of left foot: (8) Back pain: (9) Weakness: (10) Left shoulder pain: (11) Left upper extremity swelling: (12) Thrombocytopenia: (13) HTN (hypertension), benign: (14) Hyperlipidemia: (15) Depression: (16) Vitamin D deficiency: Total Time Total Time Spent Total Time Spent (In Minutes): 5 Discharge Plan Discharge Items Patient Disposition: Reason For Visit: JOINT PAINS,CELLULITIS Discharge Diagnosis: MSSA bacteremia Condition on Discharge: Fair Follow-up/Referrals: Kaitlin Rudd MD [Primary Care Provider] - Earnest Attending Provider Instructions: . Admission Data Admit Date/Time: 12/31/19 12:15 Other DC Date/Time DO NOT enter until pt leaves facility: 01/08/20 00:49 Coding Level of Care Code D/C Day Management <30 mins Diagnoses Bacteremia due to methicillin susceptible Staphylococcus aureus (MSSA) R78.81; B95.61 Acute GI hemorrhage K92.2 Diibm-mj-jrrnkzs kidney injury N17.9; N18.3 Acute renal failure type: unspecified Chronic kidney disease stage: stage 3 (moderate) Cellulitis L03.114 Laterality: left Site of cellulitis: extremity Site of cellulitis of extremity: upper extremity Infective endocarditis I33.0 Chronicity: acute Infective endocarditis organism: bacterial Bacteriuria R82.71 Closed fracture of one or more phalanges of left foot S92.402A Encounter type: initial encounter Fracture alignment: displaced Phalanx: unspecified phalanx Toe: great toe Back pain M54.5 Back pain laterality: right Back pain location: low back pain Chronicity: acute Sciatica presence: without sciatica Weakness R53.1 Left shoulder pain M25.512 Chronicity: acute Left upper extremity swelling M79.89 Thrombocytopenia D69.6 HTN (hypertension), benign I10 Hyperlipidemia E78.2 Hyperlipidemia type: mixed hyperlipidemia Depression F32.9 Depression Type: unspecified Vitamin D deficiency E55.9
[2020-01-09] MEDS ORDERED: DAPTOmycin 525 MG in SYRINGE 0 ML IV SCH (09:00)
--- NOTE | 2020-02-09 13:45 | Coding Query ---
CODING QUERY To promote full compliance with coding requirements relating to patient care, provider participation is requested in all cases of remote inpatient coder uncertainty. Please assist us with the question(s) below: Coding Question(s): Please clarify if sepsis was ruled out and if not what was the source of the infection. Sepsis; source bacteremia Physician's Response(s): Thank you Karen Ray Principal Diagnosis: "that condition established after study, to be chiefly responsible for occasioning the admission of the patient to the hospital for care." Co-Existing Principal Diagnosis: "when two or more diagnoses equally meet the criteria for principal diagnosis as determined by the circumstances of admission, diagnostic work up, and/or therapy provided, and the Alphabetic Index, Tabular List, or another coding guideline does not provide sequencing direction, any one of the diagnoses may be sequenced first." "When the physician has documented what appears to be a current diagnosis in the body of the record, but has not included the diagnosis in the final diagnostic statement, the physician should be asked whether the diagnosis should be added." (Source Coding [facility] 2 QTR90. p3-4) PATRICIA
== END 2020-01-08 00:49 | disposition expired | DRG 872 ==
LOC: ED 08:37 → 4W 12:15 → SUATTDRO 12:15 → 4W 13:37 → 2W 01-01 15:18 → 1E 01-07 08:12